=== PATIENT | female | born 1955 | race Caucasian/White ===

== ENCOUNTER → 2022-09-02 | Outpatient (CLI) | payer MEDICARE, SELFPAY ==
[2022-09-02 17:35] LABS: Absolute Lymphocyte Count 0.96 X10^3/uL (0.83-4.51); Absolute Neutrophil Count 8.8 X10^3/uL (2.0-7.7); Basophil# 0.01 X10^3/uL; Basophil% 0.1 % (0-1); Hematocrit 41.8 % (37-47); Hemoglobin 13.5 g/dL (12.0-15.0); Lymphocyte # 0.96 X10^3/ul (0.83-4.51); Lymphocyte % 9.3 % (19-41); Mean Corp Hgb Conc 32.3 g/dL (32-36); Mean Corpuscular Hgb 30.9 pg (27.0-32.0); Mean Corpuscular Volume 95.7 fL (81-99); Mean Platelet Vol. 10.1 fl (6.2-12.0); Monocyte# 0.49 X10^3/uL; Monocyte% 4.7 % (0-10); NRBC Flagged by Analyzer 0 % (0-5); Neutrophil # 8.83 X10^3/uL (2.7-7.7); Neutrophil % 85.5 % (47-70); Platelet Count 297 K/mm3 (150-450); RBC Distribution Width CV 13.4 % (11.6-14.6); RBC Distribution Width SD 47.9 fl (35.1-43.9); Red Blood Count 4.37 M/mm3 (4.2-5.4); White Blood Count 10.3 K/mm3 (4.4-11.0)
[2022-09-02 18:13] LABS: Erythrocyte Sedimentation Rate 12 mm/hr (0-30)
[2022-09-02 18:59] LABS: CRP < 2.90 mg/L (0.0-3.0); Rheumatoid Factor < 10.0 IU/mL (<15)
[2022-09-06 18:36] LABS: ANTINUCLEAR ANTIBODIES DIRECT Negative (Negative)
== END | disposition home or self-care (01) ==
PROVIDERS: PCP Family Medicine; Referring Provider Student in an Organized Health Care Education/Training Program; Visit Provider Student in an Organized Health Care Education/Training Program
DX: M79.642 Pain in left hand (principal)
CPT/HCPCS: 36415; 84550; 85025; 85652; 86038; 86140; 86431

== ENCOUNTER → 2023-03-01 | Outpatient (CLI) | payer MEDICARE, SELFPAY ==
[2023-03-01 18:22] LABS: Hematocrit 42.9 % (37-47); Hemoglobin 14.3 g/dL (12.0-15.0); Mean Corp Hgb Conc 33.3 g/dL (32-36); Mean Corpuscular Hgb 32.2 pg (27.0-32.0); Mean Corpuscular Volume 96.6 fL (81-99); Mean Platelet Vol. 9.6 fl (6.2-12.0); Platelet Count 312 K/mm3 (150-450); RBC Distribution Width CV 13.2 % (11.6-14.6); RBC Distribution Width SD 46.9 fl (35.1-43.9); Red Blood Count 4.44 M/mm3 (4.2-5.4); White Blood Count 8.8 K/mm3 (4.4-11.0)
[2023-03-01 18:45] LABS: Anion Gap 8 (5-15); BUN 5 mg/dL (7-18); BUN/Creat Ratio 7.4 RATIO (10-20); Calcium,Total 9.3 mg/dL (8.5-10.1); Chloride 98 mmol/L (98-107); Creatinine, Serum 0.67 mg/dL (0.55-1.02); EST Glomerular Filtration Rate 92 mL/min (>60); Est Glom Filt Rate - Afr Amer 112 mL/min (>60); Glucose 97 mg/dL (74-106); Potassium 3.3 mmol/L (3.5-5.1); Sodium Level 132 mmol/L (136-145)
== END | disposition home or self-care (01) ==
LOC: MTLAB 16:27
PROVIDERS: PCP Family Medicine; Referring Provider Urology; Visit Provider Urology
DX: R31.0 Gross hematuria (principal); N39.0 Urinary tract infection, site not specified; R10.9 Unspecified abdominal pain
CPT/HCPCS: 36415; 80048; 85027

== ENCOUNTER → 2023-03-02 | Outpatient (CLI) | payer MEDICARE, SELFPAY ==
--- NOTE | 2023-03-02 12:45 | CYSPIN_PTH ---
PATIENT: SAVI CASTRO LOC: [facility] U#:[id number] AGE/SX: 67/F ROOM: RE03/02/[address]: Dr. Jazlyn Cai MD : 1955 BED: DIS: 03/02/2023 SPEC #: [id number] RECD: 03/03/23 09:39 STATUS: FRANKO REJuventino #: [id number] CELINA: 03/02/23 12:[address]: Jazlyn Cai DEPT: CYTOLOGY RECD BY: Bridget Wynn ENTERED: 03/03/23 09:39 SP TYPE: CYSPIN FL OTHR DR: Dr. Peace Eckert, DO Tissues: Urine Procedures: Pap Stain (control) Special Stain Group II Cytospin Fluid HEADER OPERATION: Not noted PRE-OP DIAGNOSIS: Gross hematuria TISSUE SUBMITTED: Urine for cytology DIAGNOSIS CYTOLOGY Urine for cytology (cytospin): Negative for high-grade urothelial carcinoma (NHGUC), Sheree System Category II. Abundant bacteria present. See comment. AM:juan 03/03/2023 COMMENT The Sheree System for urine cytology diagnostic categorization was used in the evaluation of this case. CYTOLOGY STUDY Slides are reviewed. CYTOLOGY GROSS Received is 40 ml of yellow cloudy fluid labeled with the patient's name and and designated per the requisition as urine. Submitted for cytology preparation. / juan 03/03/2023 TC:5 CPT: 09995
[2023-03-02 12:47] LABS: Cytology, Body Fluid / CSF SEE PATHOLOGY REPORT
== END | disposition home or self-care (01) ==
LOC: LABSPEC 12:45
PROVIDERS: PCP Family Medicine; Visit Provider Urology
DX: R31.0 Gross hematuria (principal)
CPT/HCPCS: 88108; 88313

== ENCOUNTER → 2023-03-21 | Outpatient (CLI) | payer MEDICARE, SELFPAY ==
--- NOTE | 2023-03-21 07:31 | CT_ITS ---
STUDY: CT ABDOMEN AND PELVIS WITH AND WITHOUT CONTRAST REASON FOR EXAM: Female, 67 years old. GROSS HEMATURIA/FLANK PAIN RADIATION DOSAGE (If Supplied By Facility): CTDIvol = ( 11.39 ) mGy, DLP = ( 1085.26 ) mGycm TECHNIQUE: Transaxial images were obtained from the dome of the diaphragm to the symphysis pubis without oral contrast. IV 100mL Isovue-300 was administered. Sagittal and coronal images were reconstructed. Individualized dose optimization techniques were used for this CT. COMPARISON: None. FINDINGS: Minimal increased linear markings at the right lung base suggestive of scarring. Coronary artery calcification. Normal liver. Normal gallbladder and extrahepatic biliary system. Normal spleen. Normal pancreas. Normal bilateral adrenal glands. There is a 4.6 x 4.6 cm cyst in the upper midportion of the right kidney. There is a 4.5 cm x 4.6 cm cyst in the lower pole of the left kidney. Normal visualized stomach. Normal small intestine. Normal colon. The appendix is visualized and appears normal. There is diffuse atherosclerotic calcification of the abdominal aorta, without a demonstrated aneurysm. Normal inferior vena cava. Normal retroperitoneum. Normal urinary bladder. Normal abdominal wall. There are degenerative changes of the visualized lumbar spine. CT/CT Abd/Pelvis W/WO Contrast IMPRESSION: Bilateral renal cysts. Electronically Signed: Chuy Jean MD at 14:55 EDT ,
== END | disposition home or self-care (01) ==
LOC: CT 07:21
PROVIDERS: PCP Family Medicine; Referring Provider Urology; Visit Provider Urology
DX: N39.0 Urinary tract infection, site not specified (principal)
CPT/HCPCS: 74178; Q9967; A4216

== ENCOUNTER → 2023-03-31 | Outpatient (CLI) | payer MEDICARE, SELFPAY | END | disposition home or self-care (01) | LOC: SDC 04-05 08:07 → PAT 05-05 15:45 | PROVIDERS: PCP Family Medicine; Referring Provider Urology; Visit Provider Urology | DX: Z01.810 Encounter for preprocedural cardiovascular examination (principal) | CPT/HCPCS: 93005 ==

== ENCOUNTER → 2023-03-31 | Outpatient (CLI) | payer MEDICARE, SELFPAY ==
--- NOTE | 2023-03-31 11:19 | EKG12_ITS ---
Test Reason : PRE OP Blood Pressure : / mmHG Vent. Rate : 064 BPM Atrial Rate : 064 BPM P-R Int : 142 ms QRS Dur : 072 ms QT Int : 434 ms P-R-T Axes : 078 -59 261 degrees QTc Int : 447 ms Normal sinus rhythm Left axis deviation ST & T wave abnormality, consider anterolateral ischemia Abnormal ECG When compared with ECG of 31-MAR-2023 11:18, MANUAL COMPARISON REQUIRED, DATA IS UNCONFIRMED Confirmed by ESAU ALVARADO, CARLOS ([id number]), web editor ANAND HARRISON ([id number]) on 05/31/2023 1:42:03 PM Referred By: Jazlyn Cai Confirmed By:CARLOS CIFUENTES MD
== END | disposition home or self-care (01) ==
LOC: PSN 04-05 08:41
PROVIDERS: PCP Family Medicine; Referring Provider Urology; Visit Provider Urology
DX: Z00.00 Encounter for general adult medical examination without abnormal findings (principal)
CPT/HCPCS: 93005

== ENCOUNTER → 2023-04-06 | Outpatient (CLI) | payer MEDICARE, SELFPAY ==
--- NOTE | 2023-04-06 06:23 | ECHOD_ITS ---
Reason For Study: Pre-op clearance, Abn EKG Procedure This was a 2D Doppler, Color Flow transthoracic echocardiogram. Exam performed in department. Left Ventricle Apical false tendon noted. Left ventricular systolic function is normal. The estimated ejection fraction is 60 %. Normal diastology for age. No regional wall motion abnormalities noted. Right Ventricle Normal RV size. Normal systolic function. Atria The left and right atria are normal. Mitral Valve The mitral valve is structurally normal. No prolapse or stenosis seen. Mild (1+) mitral valve insufficiency. Tricuspid Valve Normal tricuspid valve. Mild (1+) tricuspid valve insufficiency. Right ventricular systolic pressure estimated to be 31 mmHg. Aortic Valve Trisinus/trileaflet aortic valve. Pulmonic Valve Normal pulmonic valve. Mild (1+) pulmonic valve insufficiency. Great Vessels Normal aortic root. Pericardium/Pleural No pericardial effusion. MMode/2D Measurements & Calculations LVIDd: 4.6 cm IVSd: 0.88 cm Ao root diam: 3.0 cm LVIDs: 3.3 cm LVPWd: 1.1 cm RVDd: 2.9 cm FS: 28.5 % LAV(MOD-bp): 42.2 ml LVAd ap4: 25.2 cm2 LVAd ap2: 25.5 cm2 LAV(MOD-bp) Indexed: 27.8 ml/m2 LVLd ap4: 7.1 cm LVLd ap2: 6.8 cm LAV(MOD-sp2): 40.8 ml EDV(MOD-sp4): 75.1 ml EDV(MOD-sp2): 81.2 ml LAV(MOD-sp4): 35.1 ml EDV(sp4-el): 75.5 ml EDV(sp2-el): 80.8 ml LVAs ap4: 14.0 cm2 LVAs ap2: 15.3 cm2 LVLs ap4: 5.7 cm LVLs ap2: 5.8 cm ESV(MOD-sp4): 28.6 ml ESV(MOD-sp2): 33.6 ml ESV(sp4-el): 29.3 ml ESV(sp2-el): 34.1 ml EF(MOD-sp4): 61.8 % EF(MOD-sp2): 58.5 % EF(sp4-el): 61.2 % SV(MOD-sp4): 46.4 ml SV(MOD-sp2): 47.5 ml SV(sp4-el): 46.2 ml LA dimension(2D): 3.7 cm LA A4 area: 13.9 cm2 RA A4 area: 10.8 cm2 TAPSE: 1.9 cm Time Measurements MV dec time: 0.38 sec Doppler Measurements & Calculations MV E max adonis: 44.8 cm/sec Lat Peak E' Adonis: 5.2 cm/sec Med Peak E' Adonis: 5.9 cm/sec MV A max adonis: 68.5 cm/sec E/E' lat: 8.6 E/E' med: 7.7 MV E/A: 0.65 MV dec slope: 117.0 cm/sec2 Ao V2 max: 126.2 cm/sec LV V1 max: 97.6 cm/sec Ao max P.4 mmHg LV V1 max P.8 mmHg Ao V2 mean: 84.5 cm/sec LV V1 mean P.0 mmHg Ao mean P.3 mmHg LV V1 mean: 65.5 cm/sec Ao V2 VTI: 31.5 cm LV V1 VTI: 25.2 cm AV (velocity ratio): 0.80 PA V2 max: 85.6 cm/sec TR max adonis: 263.8 cm/sec TR max P.8 mmHg ECHO/Echo Complete Interpretation Summary The estimated ejection fraction is 60 %. Mild (1+) mitral valve insufficiency. Mild (1+) tricuspid valve insufficiency. Ordering Physician: Francy Gaston Referring Physician: Peace Eckert Performed By: Macy Rivera RDCS
--- NOTE | 2023-04-06 14:12 | STRESSREP_ITS ---
Stress Test Report Date: 04/06/2023 Procedure: Exercise tolerance test/imaging study Indications: Abnormal ECG Consent: Per the patient Procedure: The patient exercised on a Cayden protocol for 3-minute achieving a peak heart rate of 127 bpm (84% predicted maximal heart rate) with a peak blood pressure 220/88 mmHg and a peak MET capacity of 4.6 METs. The baseline ECG demonstrated normal sinus rhythm with nonspecific ST T changes. The peak exercise ECG demonstrated no diagnostic changes secondary to baseline abnormality. There were no cardiac dysrhythmias pretest, during exercise, or recovery. The functional capacity was considered suboptimal. There was no complaint of chest discomfort during exercise or recovery. The examination was discontinued secondary to shortness of breath and target heart rate being achieved. The patient was injected with 11.5 mCi of technetium 99m Cardiolite and subsequently rest SPECT Cardiolite nuclear imaging was obtained in the horizontal long, vertical long, and short axis views. Post-exercise, the patient was injected with 33.3 mCi of technetium 99m Cardiolite and subsequently stress SPECT Cardiolite nuclear imaging was obtained in the horizontal long, vertical long, and short axis views. A gated Cardiolite study at peak stress was obtained. Rest and stress SPECT Cardiolite nuclear imaging status post realignment, normalization, and attenuation correction, demonstrates the appearance of relative uniform tracer uptake and myocardial perfusion appearing within normal limits. There is end systolic thickening and brightening. The gated Cardiolite study demonstrates myocardial thickening and inward wall motion. The reported LVEF is 68%. Impression: 1. Technically adequate (percent predicted maximal heart rate greater than 85%) exercise tolerance test 2. Peak exercise ECG nondiagnostic secondary to baseline abnormality 3. There were no cardiac dysrhythmias pretest, during exercise, or recovery 4. Rest and stress SPECT Cardiolite nuclear imaging demonstrate relative uniform tracer uptake and myocardial perfusion appearing within normal limits. 5. The gated Cardiolite study reports an LVEF of 68%. This note was generated with [employer] software. It may contain incorrect words, spelling, and punctuation that were not noted in checking the note before signing.
== END | disposition home or self-care (01) ==
PROVIDERS: PCP Family Medicine; Referring Provider Physician Assistant Medical; Visit Provider Physician Assistant Medical
DX: Z01.818 Encounter for other preprocedural examination (principal); R07.9 Chest pain, unspecified; R94.31 Abnormal electrocardiogram [ECG] [EKG]
CPT/HCPCS: 78452; 93017; 93306; A9500; A4216

== ENCOUNTER 2023-04-07 11:15 | Day surgery (SDC) | payer MEDICARE, SELFPAY ==
[2023-04-07 11:36] VITALS: BP 136/73; PULSE 70; RESP 17; TEMP 36.6; O2SAT 97; BMI 18.5
[2023-04-07] MEDS: Lactated Ringers 1,000 ML 15 ML IV (11:47)
--- NOTE | 2023-04-07 12:57 | CYSPIN_PTH ---
PATIENT: SAVI CASTRO [place] [facility] [id number] AGE/SX: 68/F ROOM: RE04/07/[address]: Dr. Jazlyn Cai MD : 1955 BED: DIS: 04/07/2023 SPEC #: [id number] RECD: 04/08/23 08:04 STATUS: FRANKO REJuventino #: [id number] CELINA: 04/07/23 12:[address]: Jazlyn Cai DEPT: CYTOLOGY RECD BY: Bridget Wynn ENTERED: 04/08/23 08:05 SP TYPE: CYSPIN FL OTHR DR: Dr. Peace Eckert, DO Tissues: A - Urine B - Urine Procedures: Pap Stain (control) Special Stain Group II Cytospin Fluid HEADER OPERATION: Urine collected in OR PRE-OP DIAGNOSIS: Gross hematuria TISSUE SUBMITTED: A. Right ureter urine, B. Left ureter urine DIAGNOSIS CYTOLOGY A. Right ureter urine (cytospin): Negative for high grade urothelial carcinoma (NHGUC). Sheree system category 2. B. Left ureter urine cytospin): Negative for high grade urothelial carcinoma (NHGUC). Sheree system category 2. SJ: 04/08/2023 COMMENT The Sheree System for urine cytology diagnostic categorization was used in the evaluation of this case. Correlation with clinical findings and appropriate follow up are necessary. CYTOLOGY STUDY Slides are reviewed. CYTOLOGY GROSS A. Received is 5 ml of clear colorless fluid labeled with the patient's name and and designated per the requisition as right ureter. Submitted for cytology preparation. B. Received is 10 ml of clear colorless fluid labeled with the patient's name and and designated per the requisition as left ureter. Submitted for cytology preparation. /DOUGLAS:donna 04/08/23 TC: 5 CPT: 03390 x2
[2023-04-07 13:20] VITALS: BP 136/73; BP 143/71; PULSE 66; RESP 16; TEMP 37.1; O2SAT 97
[2023-04-07 13:27] LABS: Cytology, Body Fluid / CSF SEE PATHOLOGY REPORT
[2023-04-07 13:27] LABS: Cytology, Body Fluid / CSF SEE PATHOLOGY REPORT
--- NOTE | 2023-04-07 13:43 | DCINST_ITS ---
Discharge Instructions Diet Discharge Diet: No restrictions Activity Discharge Activity: Return to Normal Activity Dressing / Incision Call your doctor if you observe: Fever of 101 or Higher, Inability to urinate and Inability to have a bowel movement Follow Up Care Please Follow Up With: Jazlyn Cai MD When: The office will call the patient to make arrangements Test Results: Test results from this visit will be discussed in further detail at your follow- up appointment, if applicable. Discharge Plan Admission Attending Provider: Jazlyn Cai Primary Care Provider: Peace Eckert Discharge Orders/Prescriptions Prescriptions: New oxycodone-acetaminophen [Percocet] 5-325 mg tablet 1 tab PO Q8H PRN (Reason: pain) 3 Days Qty: 10 0RF cephalexin [cephalexin] 500 mg capsule 500 mg PO Q12 3 Days Qty: 6 0RF phenazopyridine [Pyridium] 200 mg tablet 200 mg PO TID PRN PRN (Reason: Bladder Spasms) 7 Days Qty: 30 0RF Continued buspirone 30 mg tablet 30 mg PO BID Patient Comments: take 1 tablet by mouth twice a day escitalopram oxalate 20 mg tablet 20 mg PO DAILY Patient Comments: take 1 tablet by mouth once daily Referrals / Follow Up: Peace Eckert DO [Primary Care Provider] - Disposition Disposition (needs filled in before D/C Order can be placed): Home, Self Care
[2023-04-07 13:44] VITALS: BP 131/95; BP 136/73; PULSE 67; RESP 16; TEMP 37.2; O2SAT 99
--- NOTE | 2023-04-07 13:46 | PCM.OPRPT ---
Report of Operation Date of Procedure: 04/07/23 Pre-Operative Diagnosis: Gross hematuria Post-Operative Diagnosis: Same Surgery/Procedure Performed:: Cystoscopy, bilateral selective cytologies, right ureteroscopy, left ureteral stent insertion Surgeon: Jazlyn Cai Type of Anesthesia: General Specimen's removed: Bilateral flushings from the renal pelvis for selective cytology Description of Procedure: The patient is a 68-year-old female with gross hematuria now presents for further evaluation given that her office cystoscopy and CT scan did not reveal the etiology. Informed consent was obtained. She was taken to the operating room and placed in a supine position on the operating room table. Anesthesia monitored the head, neck, airway, IV access and vital signs throughout the case. Once anesthesia was appropriate ministered, the patient was placed into dorsolithotomy position was prepped and draped in usual sterile fashion. The cystoscope was inserted through the urethra and under direct visualization into the urinary bladder. The bladder mucosa did not reveal of any evidence of mass, lesion or other abnormality. It did appear to be injected. At this time a Pollick catheter was inserted through the left ureteral orifice and gently advanced to 20 cm. Normal saline was used to irrigate the renal pelvis gently and fluid obtained through the Pollick catheter was sent for cytologic evaluation. This process was repeated on the patient's right side with a brand-new Pollick catheter and syringe. At this time a 0.035 Glidewire was passed through the right ureteral orifice into the renal pelvis. The flexible ureteroscope easily advanced over the wire into the renal pelvis. Every calyx was directly visualized as was the entire length of the right ureter and no abnormal findings are identified. This process was repeated on the patient's left side, however after multiple tries, I was only able to access the distal aspect of the left ureter and hardly any of the ureter was evaluated directly. The decision was made to place a ureteral stent and come back for further evaluation. A 6 American 24 cm JJ stent was placed over the Glidewire with good positioning in the renal pelvis as well as the urinary bladder. The patient's bladder was emptied and the cystoscope was removed. She was awakened and taken to the recovery room in good condition. There were no complications during this procedure. Grafts/Implants Used: 6 American by 24 cm JJ stent Complications None Admit VTE Documentation VTE Present on Admission: Yes VTE Mechan Device Prophylaxis: SCD's VTE Pharm Prophylaxis ordered?: No Reason prophylaxis not ordered:: Treatment Not Indicated
[2023-04-07 14:14] VITALS: BP 136/73
== END 2023-04-07 14:17 | disposition home or self-care (01) ==
LOC: SDC 11:17 → AC 11:19
PROVIDERS: PCP Family Medicine; Referring Provider Urology; Visit Provider Urology
PROC: (CPT 50575; principal; 2023-04-07 12:40)
DX: R31.0 Gross hematuria (principal); I10 Essential (primary) hypertension; Z87.442 Personal history of urinary calculi; F17.200 Nicotine dependence, unspecified, uncomplicated; Z90.710 Acquired absence of both cervix and uterus; N39.3 Stress incontinence (female) (male); N39.0 Urinary tract infection, site not specified
CPT/HCPCS: 52332; 00910; 76000; 88108; 88313; J7120; C2617; J2405

== ENCOUNTER 2023-04-28 08:30 | Day surgery (SDC) | payer MEDICARE, SELFPAY ==
[2023-04-28] MEDS: Lactated Ringers 1,000 ML 15 ML IV (09:01)
[2023-04-28 09:03] VITALS: BP 137/78; PULSE 68; RESP 18; TEMP 36.2; O2SAT 18; BMI 18.8
--- NOTE | 2023-04-28 09:27 | DCINST_ITS ---
Discharge Instructions Diet Discharge Diet: No restrictions Activity Discharge Activity: Return to Normal Activity Dressing / Incision Call your doctor if you observe: Fever of 101 or Higher, Inability to urinate and Inability to have a bowel movement Follow Up Care Please Follow Up With: Jazlyn Cai MD When: The office will call to make follow-up arrangements. Test Results: Test results from this visit will be discussed in further detail at your follow- up appointment, if applicable. Discharge Plan Admission Attending Provider: Jazlyn Cai Primary Care Provider: Peace Eckert Discharge Orders/Prescriptions Prescriptions: Continued buspirone 30 mg tablet 30 mg PO BID Patient Comments: take 1 tablet by mouth twice a day escitalopram oxalate 20 mg tablet 20 mg PO DAILY Patient Comments: take 1 tablet by mouth once daily oxycodone-acetaminophen [Percocet] 5-325 mg tablet 1 tab PO Q8H PRN (Reason: pain) 3 Days Qty: 10 0RF cephalexin 500 mg capsule 500 mg PO Q12 3 Days Qty: 6 0RF phenazopyridine [Pyridium] 200 mg tablet 200 mg PO TID PRN PRN (Reason: Bladder Spasms) 7 Days Qty: 30 0RF Referrals / Follow Up: Peace Eckert DO [Primary Care Provider] - Disposition Disposition (needs filled in before D/C Order can be placed): Home, Self Care
--- NOTE | 2023-04-28 09:28 | OP.PCM_ITS ---
Report of Operation Date of Procedure: 04/28/23 Pre-Operative Diagnosis: Gross hematuria Post-Operative Diagnosis: Same, left pelvic ureteral narrowing Surgery/Procedure Performed:: Cystoscopy, left ureteral stent removal, left diagnostic ureteroscopy, left retrograde pyelogram Surgeon: Jazlyn Cai Type of Anesthesia: General Description of Procedure: The patient is a 68-year-old female being evaluated for gross hematuria. 2 weeks ago, an attempt was made at bilateral ureteroscopy and I was unable to advance the ureteroscope into the left ureter without difficulty. A left ureteral stent was left in place and she now presents for repeat attempt at ureteroscopic evaluation for this blood. Informed consent was obtained. The patient was taken to the operating room and placed on the operating room table. Anesthesia monitored the head, neck, airway, IV access and vital signs throughout the case. Once anesthesia was appropriately administered, the patient was placed into dorsolithotomy position and was prepped and draped in usual sterile fashion. The cystoscope was inserted through the urethra under direct visualization. The ureteral stent was identified and grasped and pulled to the urethral meatus where it was intubated with a 0.035 Glidewire which advanced without difficulty into the renal pelvis as seen on fluoroscopic visualization. The stent was then removed leaving the wire in place. At this time the flexible ureteroscope was loaded over the wire and advanced into the bladder, then the left ureter all the way to the renal pelvis. Direct visualization of the entire renal pelvis and the calyces was performed without any abnormal findings. The entire length of the ureter was directly visualized as the ureteroscope was pulled towards the bladder. In the pelvis, the ureteral mucosa became redundant in appearance. There was no friability or bleeding suggesting obvious malignancy, but the tissue was not normal in appearance. It was smooth and not papillary. This is also the same location of narrowing on ureteroscopy causing the stent insertion. We did not have access to equipment for ureteral biopsy at this time, and I decided to further investigate with a retrograde pyelogram. Using the cystoscope and an 8 Martiniquais cone-tip catheter, contrast was injected in retrograde fashion under fluoroscopic visualization. At this location, the ureter clamped back down suggesting either stricture or significant tissue growth causing obstruction of contrast from the distal location. At this time the patient's bladder was then emptied. She was awak ened and taken to the recovery room in good condition. There were no complications during this procedure. Grafts/Implants Used: None Complications None Admit VTE Documentation VTE Present on Admission: Yes VTE Mechan Device Prophylaxis: SCD's VTE Pharm Prophylaxis ordered?: No Reason prophylaxis not ordered:: Treatment Not Indicated
[2023-04-28] MEDS: Cefazolin 2 GM in 0.9% Normal Saline (100mL Bag) 100 ML IV (09:35)
[2023-04-28 10:19] VITALS: BP 118/57; BP 137/78; PULSE 72; RESP 16; TEMP 37.4; O2SAT 97
[2023-04-28 10:36] VITALS: BP 133/70; BP 137/78; PULSE 67; RESP 16; TEMP 37.4; O2SAT 96
[2023-04-28 11:12] VITALS: BP 137/78
== END 2023-04-28 11:20 | disposition home or self-care (01) ==
LOC: SDC 08:32 → AC 08:33
PROVIDERS: PCP Family Medicine; Referring Provider Urology; Visit Provider Urology
PROC: (CPT 52353; principal; 2023-04-28 09:05)
DX: R31.0 Gross hematuria (principal); N13.5 Crossing vessel and stricture of ureter without hydronephrosis; Z96.0 Presence of urogenital implants; F41.9 Anxiety disorder, unspecified; F32.A Depression, unspecified; Z87.19 Personal history of other diseases of the digestive system; Z87.442 Personal history of urinary calculi; Z87.448 Personal history of other diseases of urinary system; Z92.241 Personal history of systemic steroid therapy; F17.200 Nicotine dependence, unspecified, uncomplicated; I10 Essential (primary) hypertension; Z90.710 Acquired absence of both cervix and uterus; N39.3 Stress incontinence (female) (male); N39.0 Urinary tract infection, site not specified
CPT/HCPCS: 52351; 00910; 76000; J7120; J2405

== ENCOUNTER → 2024-03-02 | Outpatient (CLI) | payer MEDICARE, SELFPAY ==
--- NOTE | 2024-03-02 12:55 | US_ITS ---
STUDY: RENAL ULTRASOUND - COMPLETE REASON FOR EXAM: Female, 68 years old. UTI TECHNIQUE: Ultrasound evaluation of the kidneys was performed with real-time and static vegas-scale imaging. COMPARISON: Comparison is made with prior CT scan the abdomen and pelvis dated March 21, 2023. FINDINGS: RIGHT KIDNEY: Normal location of the right kidney, which is normal in size. The right kidney measures 12 cm x 5.4 cm x 6.7 cm. There is a normal cortex of the right kidney. The renal cortex measures 1.5 cm. There is a 5.5 cm x 4.9 cm x 4.1 cm cyst in the upper pole. There are no right renal calculi. There is no right hydronephrosis. DISTAL RIGHT URETER: There is non-visualization of the distal right ureter. There is no demonstrated right ureterovesical junction calculus. There is a visualized right ureteral jet. LEFT KIDNEY: Normal location of the left kidney, which is normal in size. The left kidney measures 12 cm x 5.1 cm x 5.7 cm. There is a normal cortex of the left kidney. The renal cortex measures 1.4 cm. There is a 6 cm x 5.2 cm x 4.7 cm cyst in the lower pole. There are no left renal calculi. There is no left hydronephrosis. DISTAL LEFT URETER: There is non-visualization of the distal left ureter. There is no demonstrated left ureterovesical junction calculus. There is a visualized left ureteral jet. BLADDER: The distended urinary bladder has a volume of 104 ml. The bladder wall is thickened measuring 6.5 mm. There is no demonstrated mass within the urinary bladder. There are no demonstrated bladder calculi. US/Kidney and Bladder IMPRESSION: Bilateral renal cysts. Thickening of the urinary bladder wall measuring 6.5 mm. Electronically Signed: Chuy Jean MD at 14:35 EDT ,
== END | disposition home or self-care (01) ==
PROVIDERS: PCP Family Medicine; Referring Provider Urology; Visit Provider Urology
DX: Z87.440 Personal history of urinary (tract) infections (principal)
CPT/HCPCS: 76770

== ENCOUNTER → 2024-03-27 | Outpatient (CLI) | payer MEDICARE, SELFPAY ==
--- NOTE | 2024-03-27 16:08 | BD_ITS ---
STUDY: DUAL ENERGY X-RAY ABSORPTIOMETRY / DXA REASON FOR EXAM: Female, 69 years old. M85.9 TECHNIQUE: Bone Mineral Density (BMD) measurements of lumbar spine and bilateral hips were obtained. COMPARISON: None. FINDINGS: Lumbar Spine (L1-L4): g/cm2 (1.010) / T-score (-0.2) / Z-score (1.8) Findings are suggestive of normal bone density with a low fracture risk. Left Femur Total: g/cm2 (0.908) / T-score (-0.3) / Z-score (1.2) Left Femoral Neck: g/cm2 (0.886) / T-score (0.3) / Z-score (2.1) Right Femur Total: g/cm2 (0.862) / T-score (-0.7) / Z-score (0.8) Right Femoral Neck: g/cm2 (0.838) / T-score (-0.1) / Z-score (1.7) BD/Dexa Bone Density Study IMPRESSION: The patient is considered normal as outlined below according to World Star Organization (WHO) criteria with a low fracture risk. Reference Information: The T-score is the number of standard deviations above or below the standard which is normal for young adults at their peak bone mineral density. The World Health Organization (WHO) interprets the T-scores as follows: Above -1 Normal bone density Between -1 and -2.5 Osteopenia Equal to / or below -2.5 Osteoporosis As a practical clinical guideline, osteopenia may be graded as follows: Mild -1 through -1.5 Moderate -1.6 through -2.0 Severe -2.1 through -2.4 The Z-score is the number of standard deviations above or below age-matched controls. A Z-score of less than -1.5 would be considered abnormal. References: 1. NIH Osteoporosis and Related Bone Diseases www osteo.org 2. International Society for Clinical Densitometry www iscd.org 3. National Osteoporosis Foundation www nof.org Electronically Signed: Chuy Jean MD at 10:14 EDT ,
== END | disposition home or self-care (01) ==
LOC: OPBD 16:05
PROVIDERS: PCP Family Medicine; Referring Provider Student in an Organized Health Care Education/Training Program; Visit Provider Student in an Organized Health Care Education/Training Program
DX: M85.9 Disorder of bone density and structure, unspecified (principal); Z78.0 Asymptomatic menopausal state
CPT/HCPCS: 77080

== ENCOUNTER → 2024-05-01 | Outpatient (CLI) | payer MEDICARE, SELFPAY ==
[2024-05-01 17:57] LABS: Absolute Lymphocyte Count 2.62 X10^3/uL (0.83-4.51); Absolute Neutrophil Count 6.6 X10^3/uL (2.0-7.7); Basophil# 0.02 X10^3/uL; Basophil% 0.2 % (0-1); Eosinophil# 0.04 X10^3/uL; Eosinophils% 0.4 % (0-5); Hematocrit 37.3 % (37-47); Hemoglobin 11.8 g/dL (12.0-15.0); Lymphocyte # 2.62 X10^3/ul (0.83-4.51); Lymphocyte % 25.9 % (19-41); Mean Corp Hgb Conc 31.6 g/dL (32-36); Mean Corpuscular Hgb 31.1 pg (27.0-32.0); Mean Corpuscular Volume 98.2 fL (81-99); Mean Platelet Vol. 9.3 fl (6.2-12.0); Monocyte# 0.78 X10^3/uL; Monocyte% 7.7 % (0-10); NRBC Flagged by Analyzer 0 % (0-5); Neutrophil # 6.58 X10^3/uL (2.7-7.7); Platelet Count 319 K/mm3 (150-450); RBC Distribution Width SD 53.8 fl (35.1-43.9); White Blood Count 10.1 K/mm3 (4.4-11.0)
[2024-05-01 18:19] LABS: Vitamin D,25 Hydroxy 19.4 ng/mL
[2024-05-01 18:20] LABS: ALB/GLOB Ratio 1.2 RATIO (0.9-2.4); AST(SGOT) 12 U/L (15-37); Alanine Aminotransfer ALT/SGPT 16 U/L (13-56); Albumin, Serum 3.6 g/dL (3.2-5.0); Alkaline Phosphatase 68 U/L (45-117); Anion Gap 3 (5-15); BUN 15 mg/dL (7-18); BUN/Creat Ratio 16.3 RATIO (10-20); Calcium,Total 9.1 mg/dL (8.5-10.1); Chloride 101 mmol/L (98-107); Cholesterol 179 mg/dL (200); Creatinine, Serum 0.92 mg/dL (0.55-1.02); EST Glomerular Filtration Rate 64 mL/min (>60); Est Glom Filt Rate - Afr Amer 78 mL/min (>60); Globulin 3.1 g/dL (2.2-4.2); Glucose 89 mg/dL (74-106); High Density Lipoprotein 103 mg/dL; Protein, Total 6.7 g/dL (6.4-8.2); Sodium Level 136 mmol/L (136-145); Triglycerides 64 mg/dL; Very Low Density Lipoprotein 13 mg/dL (5-40)
== END | disposition home or self-care (01) ==
PROVIDERS: PCP Family Medicine; Referring Provider Family Medicine; Visit Provider Family Medicine
DX: N39.0 Urinary tract infection, site not specified (principal); R20.2 Paresthesia of skin; E55.9 Vitamin D deficiency, unspecified
CPT/HCPCS: 36415; 80053; 80061; 82306; 85025; 87077; 87086; 87088; 87186

== ENCOUNTER → 2024-12-11 | Outpatient (CLI) | payer MEDICARE, SELFPAY ==
--- NOTE | 2024-12-11 12:27 | BI_ITS ---
EXAM: SCRN MAMM (CAD)W/MARIA E BILAT 12/11/2024 CLINICAL HISTORY: F, Age 69 y/o , SCREENING TECHNIQUE: Bilateral screening digital breast tomosynthesis with 2D and 3D images. Computer aided detection. COMPARISON: Prior exam(s) dated 05/05/2023, 03/29/2022, 07/08/2020. FINDINGS: TISSUE DENSITY: The breast tissue is heterogenously dense, which may obscure small masses. The mammogram demonstrates that the patient has dense breasts. Supplemental screening with whole breast ultrasound or MRI may be considered for further evaluation. Bilateral Breast Mammographic Findings: No significant masses, calcifications or other abnormalities are identified. BI/SCRN MAMM (CAD)W/MARIA E BILAT IMPRESSION: Right Breast: BIRADS 1 NEGATIVE. Left Breast: BIRADS 1 NEGATIVE. OVERALL FINAL ASSESSMENT: BIRADS 1 NEGATIVE. RECOMMENDATION: Routine annual follow-up in 1 Year A letter with findings and recommendations will be mailed to the patient. Reading Location: [id number]
== END | disposition home or self-care (01) ==
LOC: OPBI 12:26
PROVIDERS: PCP Family Medicine; Referring Provider Family Medicine; Visit Provider Family Medicine
DX: Z12.31 Encounter for screening mammogram for malignant neoplasm of breast (principal)
CPT/HCPCS: 77063; 77067

== ENCOUNTER → 2025-04-09 | Outpatient (CLI) | payer MEDICARE, SELFPAY ==
[2025-04-09 15:18] LABS: Hematocrit 41.3 % (37-47); Hemoglobin 13.8 g/dL (12.0-15.0); Mean Corp Hgb Conc 33.4 g/dL (32-36); Mean Corpuscular Volume 96.0 fL (81-99); Mean Platelet Vol. 10.3 fl (6.2-12.0); Platelet Count 283 K/mm3 (150-450); RBC Distribution Width CV 13.7 % (11.6-14.6); RBC Distribution Width SD 48.9 fl (35.1-43.9); Red Blood Count 4.30 M/mm3 (4.2-5.4); White Blood Count 5.9 K/mm3 (4.4-11.0)
[2025-04-09 15:54] LABS: AST(SGOT) 22 U/L (<=31); Alanine Aminotransfer ALT/SGPT 13 U/L (<=34); Albumin, Serum 4.7 g/dL (3.4-4.8); Alkaline Phosphatase 79 U/L (35-104); Anion Gap 12 (5-15); BUN 6 mg/dL (4-19); BUN/Creat Ratio 9.0 RATIO (10-20); Calcium,Total 9.5 mg/dL (7.6-11.0); Carbon Dioxide 24.1 mmol/L (21.0-32.0); Chloride 99 mmol/L (98-108); Globulin 2.2 g/dL (2.2-4.2); Glucose 104 mg/dL (70-99); Potassium 4.1 mmol/L (3.3-5.1); Vitamin D,25 Hydroxy 28.3 ng/mL (30-100)
== END | disposition home or self-care (01) ==
LOC: MTLAB 12:51
PROVIDERS: PCP Family Medicine; Referring Provider Family Medicine; Visit Provider Family Medicine
DX: E55.9 Vitamin D deficiency, unspecified (principal); R03.0 Elevated blood-pressure reading, without diagnosis of hypertension; F32.A Depression, unspecified
CPT/HCPCS: 36415; 80053; 82306; 84443; 85027

== ENCOUNTER → 2025-04-24 | Outpatient (CLI) | payer MEDICARE, SELFPAY ==
--- NOTE | 2025-04-24 15:00 | NEURO ---
NCS and/or EMG Patient Report Ordering Doctor: Kirill Sahni DATE OF SERVICE: 04/24/25 Jenifer presents with chief complaint of numbness and tingling in both hands. Electrodiagnostic findings: Right median motor nerve demonstrates prolonged latency with normal amplitude and reduced conduction velocity. Left median motor nerve demonstrates prolonged distal latency with normal amplitude and normal conduction velocity. Ulnar motor response within normal limits bilaterally, including conduction across the elbow. Normal median and ulnar F?waves bilaterally. Prolonged median sensory latency at the wrist bilaterally. Normal ulnar and radial sensory responses. Needle EMG testing was performed in the upper limbs. All muscles tested showed no evidence of denervation with normal motor unit action potentials. Electrodiagnostic impression: This is an abnormal study. 1. Electrodiagnostic findings suggestive of bilateral median mononeuropathy. This is consistent with a mild left carpal tunnel syndrome and a mild to moderate right carpal tunnel syndrome. Multi Select Codes Neurology Neurology Interp Codes: 34286-51 Musc test done w/n test comp (interp) (2) and 78326-57 Nrv cndj test 9-10 studies (interp)
--- OUTSIDE RECORDS SUMMARY | 2025-04-24 21:19 | XMS RPT_ITS | CCD ---
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 Dennis Field Primary Care Provider Dr. Dennis Field Referring Provider [phone] Marilin REYEZ, [place] Francy Stephens Attending Provider Dr. Francisco Krause Attending Provider Dr. Francisco Krause Referring Provider Natividad Vance MD Primary Care Provider Magi Borden MD Primary Care Provider [phone] NATIVIDAD VANCE Primary Care Unavailable MAGI BORDEN Primary Care Unavailable MAGI BORDEN Primary Care Unavailable ALEN RODRIGUEZ Referring Unavailable GIBSON KELLY Attending Unavailable Magi Borden MD Primary Care Provider [phone] Magi Borden MD Attending Provider [phone] Magi Borden MD Referring Provider Magi Borden MD Primary Care Provider [phone] Ayala ALVARADO, Dr. Hobson Attending Provider Magi Borden MD Attending Provider [phone] Magi Borden MD Referring Provider Magi Borden Attending Unavailable Magi Borden Referring Unavailable Magi Borden Primary Care Unavailable Magi Borden Attending Unavailable Magi Borden Referring Unavailable Magi Borden Primary Care Unavailable Magi Borden Attending Unavailable Magi Borden Referring Unavailable Dennis Field Primary Care Unavailable Medications Current Medications Medication Drug Class(es) Dates Sig (Normalized) Sig (Original) acetaminophen 325 mg / oxyCODONE hydrochloride 5 mg oral tablet (6 sources) Opioid Agonist Start: 04-07-2023 take 1 tablet by mouth every eight hours as needed for pain Oxycodone-Acetami nophen (Percocet) 5-325 mg tablet Active 1 {tbl} PO Q8H as needed for pain 10 3 0 April 07, 2023 Gross hematuria Gross hematuria AZO Urinary Pain Relief Max Strength (1 source) Start: 01-11-2023 AZO Urinary Pain Relief Max Strength Oral, TIDPC, 0 Refill(s) Start Date: 01/11/23 Status: Ordered busPIRone hydrochloride 30 mg oral tablet (20 sources) Start: 03-30-2023 take 1 tablet by mouth twice daily Buspirone 30 mg tablet Active 30 mg PO TWICE A DAY March 30, 2023 12:00am Start: 05-27-2021 End: 05-05-2022 take 1 tablet by mouth twice daily busPIRone HCl 30 mg tablet Take 30 mg by mouth twice daily. 05/27/2021 Active Comment on above: Take 30 mg by mouth twice daily. cephalexin 500 mg oral capsule (10 sources) Cephalosporin Antibacterial Start: End: take 1 capsule by mouth three times daily cephALEXin (KEFLEX) 500 mg capsule Take 1 capsule by mouth three times a day for 7 days. 21 capsule 06/19/2024 06/26/2024 Active Start: 04-07-2023 take 1 capsule by mo ut every twelve hours Cephalexin 500 mg capsule Active 500 mg PO EVERY 12 HOURS 6 3 0 April 07, 2023 12:00am post-operative Start: 02-13-2022 End: 02-20-2022 take 1 capsule by mouth twice daily cephALEXin (KEFLEX) 500 mg capsule Take 1 capsule by mouth twice daily for 7 days. 14 capsule 0 02/13/2022 02/20/2022 Active Comment on above: Take 1 capsule by mo [facility] twice daily for 7 days. Cranberry preparation (2 sources) Non-Standardized Food Allergenic Extract, Non-Standardized Plant Allergenic Extract Start: 3 cranberry oral tablet 0 Refill(s) Start Date: 01/11/23 Status: Ordered escitalopram 20 mg oral tablet (20 sources) Serotonin Reuptake Inhibitor Start: 3 take 1 tablet by mouth once daily Escitalopram Oxalate 20 mg tablet Active 20 mg PO DAILY March 30, 2023 12:00am Start: 10-01-2022 escitalopram 2 0 mg oral tablet Dose : 20 mg = 1 tab(s), Oral, qDay, # 90 tab(s), 1 Refill(s), [id number], Anxiety Depression, 162.2, cm, 10/01/22 16:00:00 EST, Height, kg, 10/01/22 16:00:00 EST, Dosing Weight Start Date: 10/01/22 Status: Ordered Start: 11-06-2021 escitalopram 2 0 mg oral tablet Dose : 20 mg = 1 tab(s), Oral, qDay, Increased dose, # 90 tab(s), 1 Refill(s), [id number], Anxiety Depression, 159, cm, 11/06/21 15:44:00 EDT, Height, kg, 11/06/21 15:35:00 EDT, Dosing Weight Start Date: 11/06/21 Status: Ordered Start: 07-23-2021 [facility] escitalopram oxalate (LEXAPRO) 10 mg tablet Take 10 mg by mouth once daily. 07/23/2021 Active Comment on above: Take 10 mg by mouth once daily. Folic Acid (4 sources) Start: 2019 lidocaine 0.05 mg/mg medicated patch (6 sources) Antiarrhythmic, Amide Local Anesthetic Start: 2023 apply 1 dose transdermal route every twenty-four hours lidocaine (LIDODERM) 5 % Indications: Acute right-sided low back pain without sciatica Apply 1 Patch as directed every 24 hours. 7 Patch 04/25/2024 Active Multiple Vitamins oral tablet (2 sources) Start: 2013 take 1 tablet by mouth once daily Multiple Vitamins oral tablet Dose = 1 tab(s), Oral, Daily, # 30 tab(s), 0 Refill(s) Start Date: 12/03/13 Status: Ordered nitrofurantoin, macrocrystals 25 mg / nitrofurantoin, monohydrate 75 mg oral capsule (1 source) Nitrofuran Antibacterial Start: 2021 End: 2021 take 1 capsule by mouth twice daily nitrofurantoin monohydrate and macrocrystal (MACROBID) 100 mg capsule Take 1 capsule by mouth twice daily for 5 days. 10 capsule 0 05/25/2022 05/30/2022 Active Comment on above: Take 1 capsule by [facility] twice daily for 5 days. phenazopyridine hydrochloride 200 mg oral tablet (13 sources) Start: 2022 End: 2022 take 1 tablet by mouth three times daily as needed for muscle spasms Phenazopyridine (Pyridium) 200 mg tablet Active 200 mg PO 3 TIMES DAILY NEEDED as needed for Bladder Spasms 30 7 0 April 07, 2023 12:00am predniSONE 10 mg oral tablet (6 sources) Start: 2023 predniSONE (DELTASONE) 10 mg tablet Take 4 tablets by mouth as a single dose days 1-3, 2 tablets days 4-6, and 1 tablet days 7-9. 21 tablet 04/25/2024 Active sulfamethoxazole 800 mg / trimethoprim 160 mg oral tablet (1 source) Dihydrofolate Reductase Inhibitor Antibacterial, Sulfonamide Antimicrobial Start: 2022 End: 2022 take 1 tablet by mouth twice daily Bactrim DS 800 mg-160 mg oral tablet Dose = 1 tab(s), Oral, BID, X 7 day(s), # 14 tab(s), 0 Refill(s), [id number], 158, cm, 01/11/23 13:04:00 EDT, Height, 49.2 Start Date: 01/11/23 Stop Date: 01/18/23 Status: Ordered trimethoprim 100 mg oral tablet (6 sources) Dihydrofolate Reductase Inhibitor Antibacterial Start: 2023 take 1 tablet by mouth once daily at bedtime trimethoprim (PROLOPRIM) 100 mg tablet Take 100 mg by mouth daily at bedtime. 01/23/2024 Active Tumeric chewable (3 sources) Start: 2022 Tumeric chewable Tumeric chewable, 0 Refill(s), 52.5 Start Date: 10/01/22 Status: Ordered Vitamin B12 50 mcg oral tablet (4 sources) Start: 2019 Vitamin B12 50 mcg oral tablet Dose : 50 mcg = 1 tab(s), Oral, qDay, # 30 tab(s), 0 Refill(s) Start Date: 06/26/20 Status: Ordered Vitamin D3 (4 sources) Start: 2019 Vitamin D3 Dose : 400 unit(s) = 1 tab(s), Oral, Daily, 0 Refill(s) Start Date: 09/26/19 Status: Ordered Completed/Discontinued Medications Medication Drug Class(es) Dates Sig (Normalized) Sig (Original) fluticasone propionate 0.05 mg/actuat metered dose nasal spray (3 sources) Corticosteroid Start: 10-01-2022 End: 03-30-2023 take 1 dose nasal route twice daily fluticasone 50 mcg/inh NASAL spray Dose = 1 spray(s), Nostril, each, BID, # 3 EA, 1 Refill(s), Pharmacy: [id number], Seasonal allergies, 162.2, cm, 10/01/22 16:00:00 EST, Height, kg, 10/01/22 16:00:00 EST, Dosing Weight Start Date: 10/01/22 Stop Date: 03/30/23 Status: Ordered Problems Active Problems Problem Classification Problem Date Documented Date Episodic/Chronic Allergic reactions (4 sources) Facial eczema 11-06-2021 Episodic Anxiety disorders (4 sources) Anxiety 12-03-2013 Chronic Mak (4 sources) Burn 12-03-2013 Episodic Comment on above: right proximal forea rm Diverticulosis and diverticulitis (4 sources) Diverticulitis 12-03-2013 Chronic Genitourinary symptoms and ill-defined conditions (20 sources) Dysuria; Translations: [Painful micturition, unspecified] Onset: 01-11-2023 Episodic Mood disorders (4 sources) Depressive disorder; Translations: [Recurrent major depressive episodes, mild ] 12-03-2013 Chronic Nonspecific chest pain (12 sources) Chest pain; Translations: [Chest pain, unspecified] 04-05-2023 Episodic Nutritional deficiencies (1 source) Vitamin D deficiency, unspecified; Translations: [Vitamin D deficiency, unspecified] Onset: 04-16-2025 Chronic Osteoarthritis (4 sources) Arthritis 12-03-2013 Chronic Other circulatory disease (4 sources) Elevated blood pressure 06-26-2020 Episodic Other connective tissue disease (4 sources) Hand pain 12-03-2013 Episodic Other connective tissue disease (4 sources) Triggering of digit 11-06-2021 Episodic Other disorders of stomach and duodenum (4 sources) Indigestion 12-03-2013 Episodic Other lower respiratory disease (4 sources) Rib pain 04-28-2021 Episodic Other nervous system disorders (4 sources) Intermittent tremor 06-26-2020 Episodic Other nervous system disorders (4 sources) Numbness and tingling sensation of skin 12-03-2013 Episodic Comment on above: left hand Other upper respiratory disease (3 sources) Seasonal allergy 04-14-2022 Chronic 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) Cystocele 02-10-2023 Chronic Residual codes; unclassified (4 sources) Needs influenza immunization 06-26-2020 Episodic Residual codes; unclassified (4 sources) Requires vaccination 03-03-2022 Episodic Spondylosis; intervertebral disc disorders; other back problems (2 sources) Acute low back pain; Translations: [Acute right-sided low back pain without sciatica] 04-25-2024 Episodic Unclassified (4 sources) Cancer cervix screening status 03-03-2022 Unclassified (4 sources) Eye glasses, device (physical object) 12-03-2013 Unclassified (4 sources) H/O: high risk medication 03-22-2019 Unclassified (20 sources) Patient encounter status 06-26-2020 Unclassified (3 sources) Influenza vaccination status 10-01-2022 Past or Other Problems Problem Classification Problem Date Documented Da te Episodic/Chronic Other screening for suspected conditions (not mental disorders or infectious disease) (17 sources) Viral screening status; Translations: [Electrocardiogram abnormal] Onset: 12-19-2024 03-03-2022 Episodic Urinary tract infections (15 sources) Acute pyelonephritis; Translations: [Urinary tract infectious disease] Onset: 05-28-2024 12-03-2013 Episodic Results Test Name Value Interpretation Reference Range Facility Anion gap in Serum or Plasma Ordered By: Magi Borden on 04-09-2025 Anion gap [Moles/Vol] 12 mmol/L 5-15 [facility] BUN/creatinine ratioOrdered By: Magi Borden on 04-09-2025 Urea nitrogen/Creatinine [Mass ratio] 9.0 mg/mg Low 10-20 [facility] Bilirubin, totalOrdered By: Magi Borden on 04-09-2025 Bilirubin [Mass/Vol] 0.70 mg/dL 0.00-1.30 [facility] CBC-Complete Blood Cnt No Di ffon 04-09-2025 Erythrocyte distribution width (RBC) [Ratio] 13.7 % Normal 11.6-14.6 [facility] Comment on above: Order Comment: Order Date: 04/05/25 Order Info: [id number] - CBC Performed By: #### L [id number], [id number], L100.0500 #### [facility] [address] [place], [address] Hematocrit (Bld) [Volume fraction] 41.3 % Normal 37-47 [facility] Comment on above: Order Comment: Order Date: 04/05/25 Order Info: [id number] - CBC Performed By: #### L [id number], [id number], L100.0500 #### [facility] [address] [place], [address] Hemoglobin (Bld) [Mass/Vol] 13.8 g/dL Normal 12.0-15.0 [facility] Comment on above: Order Comment: Order Date: 04/05/25 Order Info: [id number] - CBC Performed By: #### L [id number], [id number], L100.0500 #### [facility] [address] [place], [address] MCH (RBC) [Entitic mass] 32.1 pg High 27.0-32.0 [facility] Comment on above: Order Comment: Order Date: 04/05/25 Order Info: [id number] - CBC Performed By: #### L [id number], [id number], L100.0500 #### [facility] [address] [place], [address] MCHC (RBC) [Mass/Vol] 33.4 g/dL Normal 32-36 [facility] Comment on above: Order Comment: Order Date: 04/05/25 Order Info: [id number] - CBC Performed By: #### L [id number], [id number], L100.0500 #### [facility] [address] [place], [address] MCV (RBC) [Entitic vol] 96.0 fL Normal 81-99 [facility] Comment on above: Order Comment: Order Date: 04/05/25 Order Info: [id number] - CBC Performed By: #### L [id number], [id number], L100.0500 #### [facility] [address] [place], [address] Platelet mean volume (Bld) [Entitic vol] 10.3 fL Normal 6.2-12.0 [facility] Comment on above: Order Comment: Order Date: 04/05/25 Order Info: [id number] - CBC Performed By: #### L [id number], [id number], L100.0500 #### [facility] [address] [place], [address] Platelets (Bld) [#/Vol] 283 10*3/uL Normal 150-450 [facility] Comment on above: Order Comment: Order Date: 04/05/25 Order Info: [id number] - CBC Performed By: #### L [id number], [id number], L100.0500 #### [facility] [address] [place], [address] RBC (Bld) [#/Vol] 4.30 10*6/uL Normal 4.2-5.4 [facility] Comment on above: Order Comment: Order Date: 04/05/25 Order Info: [id number] - CBC Performed By: #### L [id number], [id number], L100.0500 #### [facility] [address] [place], [address] RDW SD 48.9 fl High 35.1-43.9 [facility] Comment on above: Order Comment: Order Date: 04/05/25 Order Info: [id number] - CBC Performed By: #### L [id number], [id number], L100.0500 #### [facility] [address] [place], [address] WBC (Bld) [#/Vol] 5.9 10*3/uL Normal 4.4-11.0 [facility] Comment on above: Order Comment: Order Date: 04/05/25 Order Info: [id number] - CBC Performed By: #### L [id number], [id number], L100.0500 #### [facility] [address] [place], [address] Carbon dioxide, total [Moles /volume] in Central venous bloodOrdered By: Magi Borden on 04-09-2025 CO2 [Moles/Vol] 24.1 mmol/L 21.0-32.0 [facility] Chloride assayOrdered By: Shan Borden on 04-09-2025 Chloride [Moles/Vol] 99 mmol/L 98-108 [facility] Comprehensive Metabolic Prof ilon 04-09-2025 Albumin [Mass/Vol] 4.7 g/dL Normal 3.4-4.8 [facility] Comment on above: Order Comment: Order Date: 04/05/25 Order Info: [id number] - CMP Order Info: [id number] - TSH Performed By: #### L [id number], [id number], L100.0500 #### [facility] [address] [place], [address] Albumin/Globulin [Mass ratio] 2.1 {ratio} Normal 0.9-2.4 [facility] Comment on above: Order Comment: Order Date: 04/05/25 Order Info: [id number] - CMP Order Info: [id number] - TSH Performed By: #### L [id number], [id number], L100.0500 #### [facility] [address] [place], [address] ALK PHOS 79 U/L Normal 35-104 [facility] Comment on above: Order Comment: Order Date: 04/05/25 Order Info: [id number] - CMP Order Info: [id number] - TSH Performed By: #### L [id number], [id number], L100.0500 #### [facility] [address] [place], [address] ALT [Catalytic activity/Vol] 13 U/L Normal <=34 [facility] Comment on above: Order Comment: Order Date: 04/05/25 Order Info: [id number] - CMP Order Info: [id number] - TSH Performed By: #### L [id number], [id number], L100.0500 #### [facility] [address] [place], [address] AST [Catalytic activity/Vol] 22 U/L Normal <=31 [facility] Comment on above: Order Comment: Order Date: 04/05/25 Order Info: [id number] - CMP Order Info: [id number] - TSH Performed By: #### L [id number], [id number], L100.0500 #### [facility] [address] [place], [address] Bilirubin [Mass/Vol] 0.70 mg/dL Normal 0.00-1.30 [facility] Comment on above: Order Comment: Order Date: 04/05/25 Order Info: [id number] - CMP Order Info: [id number] - TSH Performed By: #### L [id number], [id number], L100.0500 #### [facility] [address] [place], [address] BUN/CRE 9.0 RATIO Low 10-20 [facility] Comment on above: Order Comment: Order Date: 04/05/25 Order Info: [id number] - CMP Order Info: [id number] - TSH Performed By: #### L [id number], [id number], L100.0500 #### [facility] [address] [place], [address] Calcium [Mass/Vol] 9.5 mg/dL Normal 7.6-11.0 [facility] Comment on above: Order Comment: Order Date: 04/05/25 Order Info: [id number] - CMP Order Info: 3 - TSH Performed By: #### L [id number], [id number], L100.0500 #### [facility] [address] [place], [address] Chloride [Moles/Vol] 99 mmol/L Normal 98-108 [facility] Comment on above: Order Comment: Order Date: 04/05/25 Order Info: [id number] - CMP Order Info: [id number] - TSH Performed By: #### L [id number], [id number], L100.0500 #### [facility] [address] [place], [address] CO2 [Moles/Vol] 24.1 mmol/L Normal 21.0-32.0 [facility] Comment on above: Order Comment: Order Date: 04/05/25 Order Info: [id number] - CMP Order Info: [id number] - TSH Performed By: #### L [id number], [id number], L100.0500 #### [facility] [address] [place], [address] Creatinine [Mass/Vol] 0.64 mg/dL Low 0.70-1.20 [facility] Comment on above: Order Comment: Order Date: 04/05/25 Order Info: [id number] - CMP Order Info: [id number] - TSH Performed By: #### L [id number], [id number], L100.0500 #### [facility] [address] [place], [address] GAP 12 Normal 5-15 [facility] Comment on above: Order Comment: Order Date: 04/05/25 Order Info: [id number] - CMP Order Info: 3 - TSH Performed By: #### L [id number], [id number], L100.0500 #### [facility] [address] [place], [address] GFR/1.73 sq M.predicted among non-blacks MDRD (S/P/Bld) [Vol rate/Area] 95 mL/min/{1.73_m2} Normal >60 [facility] Comment on above: Order Comment: Order Date: 04/05/25 Order Info: [id number] - CMP Order Info: [id number] - TSH Result Comment: mL/m in/1.73m2 CKD-EPI Creatinine Equation (2020) Performed By: #### L [id number], L500.4050, L100.0500 #### [facility] [address] [place], [address] Globulin (S) [Mass/Vol] 2.2 g/dL Normal 2.2-4.2 [facility] Comment on above: Order Comment: Order Date: 04/05/25 Order Info: [id number] - CMP Order Info: [id number] - TSH Performed By: #### L [id number], L500.4050, L100.0500 #### [facility] [address] [place], [address] Glucose [Mass/Vol] 104 mg/dL High 70-99 [facility] Comment on above: Order Comment: Order Date: 04/05/25 Order Info: [id number] - CMP Order Info: [id number] - TSH Performed By: #### L [id number], L500.4050, L100.0500 #### [facility] [address] [place], [address] Potassium [Moles/Vol] 4.1 mmol/L Normal 3.3-5.1 [facility] Comment on above: Order Comment: Order Date: 04/05/25 Order Info: [id number] - CMP Order Info: 3 - TSH Performed By: #### L [id number], L500.4050, L100.0500 #### [facility] [address] [place], [address] Sodium [Moles/Vol] 135 mmol/L Normal 133-145 [facility] Comment on above: Order Comment: Order Date: 04/05/25 Order Info: [id number] - CMP Order Info: 3 - TSH Performed By: #### L [id number], L500.4050, L100.0500 #### [facility] [address] [place], [address] T PROT 6.9 g/dL Normal 5.9-8.4 [facility] Comment on above: Order Comment: Order Date: 04/05/25 Order Info: [id number] - CMP Order Info: 3 - TSH Performed By: #### L [id number], L500.4050, L100.0500 #### [facility] [address] [place], [address] Urea nitrogen [Mass/Vol] 6 mg/dL Normal 4-19 [facility] Comment on above: Order Comment: Order Date: 04/05/25 Order Info: [id number] - CMP Order Info: 3 - TSH Performed By: #### L [id number], L500.4050, L100.0500 #### [facility] [address] [place], [address] Erythrocyte distribution wid th ratioOrdered By: Magi Borden on 04-09-2025 Erythrocyte distribution width (RBC) [Ratio] 13.7 % 11.6-14.6 [facility] Erythrocyte distribution wid th standard deviationOrdered By: Magi Borden on 04-09-2025 Erythrocyte distribution width (RBC) [Ratio] 48.9 fl High 35.1-43.9 [facility] Glomerular filtration rate ( GFR) estimation/1.73 sq m using serum, plasma, or whole bOrdered By: Magi Borden on 04-09-2025 GFR/1.73 sq M.predicted among non-blacks MDRD (S/P/Bld) [Vol rate/Area] 95 mL/min/{1.73_m2} >60 [facility] Comment on above: mL/min/1.73m2 CKD-EP I Creatinine Equation (2020) Hematocrit Auto (Bld) [Volum e fraction]Ordered By: Magi Borden on 04-09-2025 Hematocrit (Bld) [Volume fraction] 41.3 % 37-47 [facility] Hemoglobin measurementOrdere d By: Magi Borden on 04-09-2025 Hemoglobin (Bld) [Mass/Vol] 13.8 g/dL 12.0-15.0 [facility] - Chemistry and C hemistry - challengeOrdered By: Magi Borden on 04-09-2025 AST [Catalytic activity/Vol] 22 U/L <32 [facility] MCV (mean corpuscular volume ) determinationOrdered By: Magi Borden on 04-09-2025 MCV (RBC) [Entitic vol] 96.0 fL 81-[address] [facility] Mean corpuscular hemoglobin (MCH) determinationOrdered By: Magi Borden on 04-09-2025 MCH (RBC) [Entitic mass] 32.1 pg High 27.0-32.0 [facility] Mean corpuscular hemoglobin concentration (MCHC) determinationOrdered By: Magi Borden on 04-09-2025 MCHC (RBC) [Mass/Vol] 33.4 g/dL 32-36 [facility] Mean platelet volume determi nationOrdered By: Magi Borden on 04-09-2025 Platelet mean volume (Bld) [Entitic vol] 10.3 fL 6.2-12.0 [facility] Platelet countOrdered By: Shan Borden on 04-09-2025 Platelets (Bld) [#/Vol] 283 10*3/uL 150-450 [facility] Potassium measurement (mass/ volume)Ordered By: Magi Borden on 04-09-2025 Potassium (Unsp spec) [Mass/Vol] 4.1 mmol/L 3.3-5.1 [facility] RBC Auto (Bld) [#/Vol]Ordere d By: Magi Borden on 04-09-2025 RBC (Bld) [#/Vol] 4.30 10*6/uL 4.2-5.4 [facility] Serum creatinine measurement (mass/volume)Ordered By: Magi Borden on 04-09-2025 Creatinine [Mass/Vol] 0.64 mg/dL Low 0.70-1.20 [facility] Serum globulin measurementOr dered By: Magi Borden on 04-09-2025 Globulin (S) [Mass/Vol] 2.2 g/dL 2.2-4.[address] [facility] Serum glucose measurement (m ass/volume)Ordered By: Magi Borden on 04-09-2025 Glucose [Mass/Vol] 104 mg/dL High 70-99 [facility] Serum or plasma alanine louise otransferase (ALT) measurementOrdered By: Magi Borden on 04-09-2025 ALT [Catalytic activity/Vol] 13 U/L <35 [facility] Serum or plasma albumin mónica urement (mass/volume)Ordered By: Magi Borden on 04-09-2025 Albumin [Mass/Vol] 4.7 g/dL 3.4-4.8 [facility] Serum or plasma albumin/glob ulin mass ratioOrdered By: Magi Borden on 04-09-2025 Albumin/Globulin [Mass ratio] 2.1 {ratio} 0.9-2.4 [facility] Serum or plasma alkaline lindsey sphatase measurementOrdered By: Magi Borden on 04-09-2025 ALP [Catalytic activity/Vol] 79 U/L 35-104 [facility] Serum or plasma calcium mónica urement (mass/volume)Ordered By: Magi Borden on 04-09-2025 Calcium [Mass/Vol] 9.5 mg/dL 7.6-11.0 [facility] Serum or plasma urea nitroge n measurement (mass/volume)Ordered By: Magi Rodriguezke on 04-09-2025 Urea nitrogen [Mass/Vol] 6 mg/dL 4-19 [facility] Sodium levelOrdered By: Kathi Borden on 04-09-2025 Sodium [Moles/Vol] 135 mmol/L 133-145 [facility] TSH DL <= 0.005 mIU/L QnOrde red By: Magi Rodriguezke on 04-09-2025 TSH Qn 1.490 uIU/mL 0.300-4.200 [facility] Thyroid Stim Hormone (TSH)on 04-09-2025 TSH 1.490 uIU/mL Normal 0.300-4.200 [facility] Comment on above: Order Comment: Order Date: 04/05/25 Order Info: 0786-1 - CMP Order Info: 3016-3 - TSH Performed By: #### L 501.9520, L500.4050, L100.0500 #### [facility] [address] [place], [place], [address] Total proteinOrdered By: Roseanne Borden on 04-09-2025 Protein [Mass/Vol] 6.9 g/dL 5.9-8.4 [facility] Vitamin D,25 Hydroxyon 04-09 Vitamin D 25-OH 28.3 ng/mL Low 30-100 [facility] Comment on above: Order Comment: Order Date: 04/05/25 Order Info: [id number] - CMP Order Info: 3016-3 - TSH Result Comment: Lisa min D Status Deficiency: <20 ng/mL (50nmol/L) Insufficiency: 20-30 ng/mL (50-75 nmol/L) Sufficiency: 30-100 ng/mL (75-250 nmol/L) Toxicity: >100 ng/mL (>250 nmol/L) Performed By: #### L 506.1001 #### [facility] [address] [place], [place], [address] White blood cell (WBC) count Ordered By: Magi Borden on 04-09-2025 WBC (Bld) [#/Vol] 5.9 10*3/uL 4.4-11.0 [facility] Breast imaging reportOrdered By: Jany Kaplan on 12-12-2024 Study report [facility] Imaging Services [address] [place] [address] SCRN MAMM (CAD)W/MARIA E BILAT MR#: [id number] Acct: [id number] Name: JENIFER CASTRO Rep #: [id number] : 1955 F 69 From: Nancy Kaplan MD PCP: Dr. Magi Borden MD Status: REG CL I Study:SCRN MAMM (CAD)W/MARIA E BILAT Date of Exa m: 12/11/24 Exam# [id number] Ordering Dr: Roseanne Borden MD EXAM: SCRN MAMM (CAD)W/MARIA E BILAT 12/11/2024 CLINICAL HISTORY: F, Age 69 y/o , SCREENING TECHNIQUE: Bilateral screening digital breast tomosynthesis with 2D and 3D images. Computeraided detection. COMPARISON: Prior exam(s) dated 05/05/2023, 03/29/2022, 07/08/2020. FINDINGS: TISSUE DENSITY: The breast tissue is heterogenously dense, which may obscure small masses. The mammogram demonstrates that the patient has dense breasts. Supplemental screening with whole breast ultrasound or MRI may be considered for further evaluation. Bilateral Breast Mammographic Findings: No significant masses, calcifications or other abnormalities are identified. BI/SCRN MAMM (CAD)W/MARIA E BILAT IMPRESSION: Right Breast: BIRADS 1 NEGATIVE. Left Breast: BIRADS 1 NEGATIVE. OVERALL FINAL ASSESSMENT: BIRADS 1 NEGATIVE. RECOMMENDATION: Routine annual follow-up in 1 Year A letter with findings and recommendations will be mailed to the patient. Reading Location: [facility] CC: Dr. Magi Borden MD ~ Business Center Attendant: Signed [facility] SCRN MAMM (CAD)W/MARIA E BILATo n 12-11-2024 SCRN MAMM (CAD)W/MARIA E BILAT [facility] Imaging Services [address] [place] [address] SCRN MAMM (CAD)W/MARIA E BILAT MR#: [id number] Acct: [id number] Name: JENIFER CASTRO Rep #: [id number] : 1955 F 69 From: Jany Kaplan MD PCP: Dr. Magi Borden MD Status: [facility] CL Study: SCRN MAMM (CAD)W/MARIA E BILAT Date of Exam: 11/14 05/09 Exam# [id number] Ordering Dr: Magi Borden MD EXAM: SCRN MAMM (CAD)W/MARIA E BILAT 12/11/2024 CLINICAL HISTORY: F, Age 69 y/o , SCREENING TECHNIQUE: Bilateral screening digital breast tomosynthesis with 2D and 3D images. Computer aided detection. COMPARISON: Prior exam(s) dated 05/05/2023, 03/29/2022, 07/08/2020. FINDINGS: TISSUE DENSITY: The breast tissue is heterogenously dense, which may obscure small masses. The mammogram demonstrates that the patient has dense breasts. Supplemental screening with whole breast ultrasound or MRI may be considered for further evaluation. Bilateral Breast Mammographic Findings: No significant masses, calcifications or other abnormalities are identified. BI/SCRN MAMM (CAD)W/MARIA E BILAT IMPRESSION: Right Breast: BIRADS 1 NEGATIVE. Left Breast: BIRADS 1 NEGATIVE. OVERALL FINAL ASSESSMENT: BIRADS 1 NEGATIVE. RECOMMENDATION: Routine annual follow-up in 1 Year A letter with findings and recommendations will be mailed to the patient. Reading Location: [id number] CC: Dr. Magi Borden MD Business Center Attendant: Signed Normal [facility] Alysia 07-25-2024 [facility] Telephone (AdstrixLWS) ---- JENIFER CASTRO ([id number]) 1955 F Date Time Provider Department 07/25/24 GIBSON KELLY During your visit today, we recorded the following information about you: Lucy Hardy LPN 07/25/2024 9:43 AM Signed Received medical records from Dr. Cai via [employer]. Scanned to [employer]. Lucy Hardy LPN Allergies As of Date: 07/25/2024 (No Known Allergies) Date Reviewed: 07/23/2024 Reviewed by: Gibson Kelly APRN.CLUB STEWARD, [facility] - Fully Assessed Reason for Visit: Medical Records [Other] Prescriptions as of 07/25/2024 - trimethoprim (PROLOPRIM) 100 mg tablet Take 100 mg by mouth daily at bedtime. - phenazopyridine (PYRIDIUM) 200 mg tablet Take 200 mg by mouth three times a day as needed. - predniSONE (DELTASONE) 10 mg tablet Take 4 tablets by mouth as a single dose days 1-3, 2 tablets days 4-6, and 1 tablet days 7-9. - lidocaine (LIDODERM) 5 % Apply 1 Patch as directed every 24 hours. - escitalopram oxalate (LEXAPRO) 10 mg tablet Take 10 mg by mouth once daily. - busPIRone HCl 30 mg tablet Take 30 mg by mouth twice daily. Problem List As Of Date 07/25/2024 Noted Resolved Recurrent UTI (urinary tract infection) [N39.0] 07/23/2024 Encounter Status:[facility] (UROAlexWS[facility] ---- JENIFER CASTRO ([id number]) 1955 F Date Time Provider Department 07/24/24 GIBSON KELLY During your visit today, we recorded the following information about you: Lucy Hardy LPN 07/24/2024 4:34 PM Signed ----- Message from Gibson Kelly APRN.ALESSANDRO MANRIQUE sent at 07/24/2024 3:06 PM EST ----- Hi Team , Can you inform the patient - Your urine is negative for blood. The bacteria are likely bacteria from the skin that shed into your urine. Not significant at this time. Continue with our plan and follow up with me in 6 months. Sooner for any UTI symptoms. Gibson Kelly DNP, [place] Department of Urology [facility] Lucy Hardy LPN 07/24/2024 4:36 PM Signed Called patient. Verified name and date of . Patient informed- verbalizes understanding. Lucy Hardy LPN Allergies As of Date: 07/24/2024 (No Known Allergies) Date Reviewed: 07/23/2024 Reviewed by: Gibson Kelly APRN.ALESSANDRO MANRIQUE - Fully Assessed Reason for Visit: Results [95] Prescriptions as of 07/24/2024 - trimethoprim (PROLOPRIM) 100 mg tablet Take 100 mg by mouth daily at bedtime. - phenazopyridine (PYRIDIUM) 200 mg tablet Take 200 mg by mouth three times a day as needed. - predniSONE (DELTASONE) 10 mg tablet Take 4 tablets by mouth as a single dose days 1-3, 2 tablets days 4-6, and 1 tablet days 7-9. - lidocaine (LIDODERM) 5 % Apply 1 Patch as directed every 24 hours. - escitalopram oxalate (LEXAPRO) 10 mg tablet Take 10 mg by mouth once daily. - busPIRone HCl 30 mg tablet Take 30 mg by mouth twice daily. Problem List As Of Date 07/24/2024 Noted Resolved Recurrent UTI (urinary tract infection) [N39.0] 07/23/2024 Encounter Status:Closed by LUCY HARDY on 07/24/24 Normal [facility] CNOVon 07-23-2024 CNOV Office Visit (UROLWS) ---- JENIFER CASTRO ([id number]) 1955 F Date Time Provider Department 07/23/24 1:00 PM GIBSON KELLY During your visit today, we recorded the following information about you: Temperature Pulse Respiration Blood pressure 98.4 degrees 100/minute 14/minute 128/76 Weight Height 51.7 kg 1.626 m Gibson Kelly APRN.CLUB STEWARD, DNP 07/23/2024 1:46 PM Signed [facility] - [facility] Referring provider: Magi Borden MD New patient to Urology 07/23/[address] Alen Rodriguez [address] [facility] [address] for an opinion regarding urinary urgency and my final recommendations will be communicated back to the requesting physician by way of shared Medical record or letter via US mail. Chief Complaint Patient presents with: Consult Urinary Frequency Urinary Incontinence HPI Jenifer Castro is a 69 year old female who presents here today for a several day history of urinary symptoms. This is an established patient of Dr. Magi Borden MD. This is a new patient to me. Past med hx: Umesh, urinary urgency, smoker Seen at in [place] for UTI symptoms. Had dysuria and frequency. History of 2 UTIs recently. Was on Cipro and Bactrim. completed and was negative. No Followed by Dr. Jazlyn Cai at [facility] for Umesh. Wants a second opinion regarding her rUTIs. No records from her office or in [place]. Reports: Denies any current dysuria, burning, urgency, and frequency. No blood in the urine. No fever or chills. Denies suprapubic pain or flank pain. Past medical history, appointments, medications, allergies reviewed 07/23/2024 Previous Medical History PAST MEDICAL HISTORY Diagnosis Date Cystocele, unspecified Disorder of bone density and structure, unspecified Diverticulitis Facial eczema History of skin cancer Intermittent tremor Numbness and tingling sensation of skin Seasonal allergies Urinary frequency 06/19/2024 Previous Surgical History PAST SURGICAL HISTORY Procedure Laterality Date PAST SURGICAL HISTORY OF states she has had three surgeries but uncertain of what she had done. Family History FAMILY HISTORY Problem Relation Age of Onset Uterine Cancer Mother Diabetes Mother other (Heart condition) Mother Heart Attack Mother Lung Cancer Father No Known Problems Sister No Known Problems Sister Skin Cancer Brother No Known Problems Maternal Grandmother No Known Problems Maternal Grandfather No Known Problems Paternal Grandmother No Known Problems Paternal Grandfather Patient Allergies ALLERGIES No Known Allergies Current Medications Current Outpatient Medications on File Prior to Visit Medication Sig trimethoprim (PROLOPRIM) 100 mg tablet Take 100 mg by mouth daily at bedtime. (Patient not taking: Reported on 06/19/2024) phenazopyridine (PYRIDIUM) 200 mg tablet Take 200 mg by mouth three times a day as needed. predniSONE (DELTASONE) 10 mg tablet Take 4 tablets by mouth as a single dose days 1-3, 2 tablets days 4-6, and 1 tablet days 7-9. (Patient not taking: Reported on 06/19/2024) lidocaine (LIDODERM) 5 % Apply 1 Patch as directed every 24 hours. escitalopram oxalate (LEXAPRO) 10 mg tablet Take 10 mg by mouth once daily. busPIRone HCl 30 mg tablet Take 30 mg by mouth twice daily. No current facility-administer ed medications on file prior to visit. Social History Social History Tobacco Use Smoking status: Every Day Types: Cigarettes Smokeless tobacco: Never Vaping Use Vaping status: Never Used Substance Use Topics Alcohol use: Yes Alcohol/week: 3.0 standard drinks of alcohol Types: 2 Glasses of wine, 1 Cans of beer per week Drug use: Never LABS: Latest Ref Rng 08/18/2021 02/13/2022 05/25/2022 06/19/2024 GLUCOSE UA (POCT) Negative mg/dL Negative 250 ! Negative Negative BILIRUBIN UA (POCT) Negative Negative Large ! Small ! Negative KETONE UA (POCT) Negative mg/dL Negative 40 ! 15 ! Negative SPECIFIC GRAVITY UA (POCT) 1.005 - 1.030 1.015 1.015 >=1.030 1.010 HEMOGLOBIN/BLOOD UA (POCT) Negative Large ! Large ! Large ! Small ! PH UA (POCT) 4.5 - 8.0 6.5 6.0 6.0 7.0 PROTEIN UA (POCT) Negative mg/dL Negative >=300 ! >=300 ! Trace ! UROBILINOGEN UA (POCT) Normal E.U./dL 0.2 >=8.0 ! 1.0 0.2 NITRITE UA (POCT) Negative Negative Positive ! Positive ! Positive ! LEUKOCYTES UA (POCT) Negative Small ! Large ! Small ! Moderate ! COLOR UA (POCT) Yellow [place] Dark yellow [place] CLARITY UA (POCT) Clear Cloudy Cloudy Cloudy Specimen Request Specimen received in preservative Culture <10,000 CFU/ml? No growth (<1,000 CFU/ml) 10,000 -<50,000 CFU/ml Escherichia coli ! No growth (<1,000 CFU/ml) IMAGING: Review of Symptoms GENERAL: No weight loss, malaise fatigue or fevers. GI: No nausea, vomiting, or diarrhea. No abdominal pain : + for burning, dysuria, urgency or frequency. No bloo (more content not included)... Normal [facility] UA DIP, URINE (POC)on 2023 BILIRUBIN UA (POCT) Negative Negative [facility] CLARITY UA (POCT) Clear [facility] COLOR UA (POCT) Yellow [facility] GLUCOSE UA (POCT) Negative Negative mg/dL [facility] Hemoglobin Ql (U) Trace-intact Abnormal Negative [facility] Interpretation and review of laboratory results Abnormal [facility] KETONE UA (POCT) Negative Negative mg/dL [facility] LEUKOCYTES UA (POCT) Negative Negative [facility] NITRITE UA (POCT) Negative Negative [facility] PH UA (POCT) 7.0 4.5 - 8.[address] [facility] Protein Ql (U) Negative Negative mg/dL [facility] SPECIFIC GRAVITY UA (POCT) 1.015 1.005 - 1.[address] [facility] UROBILINOGEN UA (POCT) 0.2 Nidia l E.U./dL [facility] Location:[facility], [address], [place], [address] [facility] Urinalysis complete panel (U )on 07-23-2024 BACTERIA UL 1422.9 uL High Negative [facility] Comment on above: Order Comment: Speci men Type: URINE SPECIMEN Ordering Facility: [facility] Address: [address] [place] [address] Performed By: #### 2 4356-8 #### [facility] CLIA [id number] [address] [place] [address] [place] Bilirubin Ql (U) Negative Normal Negative [facility] Comment on above: Order Comment: Speci men Type: URINE SPECIMEN Ordering Facility: [facility] Address: [address] [place] [address] Performed By: #### 2 4356-8 #### [facility] CLIA [id number] [address] [place] [address] [place] Clarity (Unsp spec) Clear Normal Clear [facility] Comment on above: Order Comment: Speci men Type: URINE SPECIMEN Ordering Facility: [facility] Address: [address] [place] [address] Performed By: #### 2 4356-8 #### [facility] CLIA [id number] [address] [place] [address] [place] Color (U) Yellow Normal Yellow [facility] Comment on above: Order Comment: Speci men Type: URINE SPECIMEN Ordering Facility: [facility] Address: [address] [place] [address] Performed By: #### 2 4356-8 #### [facility] CLIA [id number] [address] [place] [address] [place] Epithelial cells LM.HPF (Urine sed) [#/Area] Moderate Normal [facility] Comment on above: Order Comment: Speci men Type: URINE SPECIMEN Ordering Facility: [facility] Address: [address] [place] [address] Performed By: #### 2 4356-8 #### [facility] CLIA [id number] [address] [place] [address] [place] Glucose Test strip (U) [Mass/Vol] Negative Normal Negative [facility] Comment on above: Order Comment: Speci men Type: URINE SPECIMEN Ordering Facility: [facility] Address: [address] [place] [address] Performed By: #### 2 4356-8 #### [facility] CLIA [id number] [address] [place] [address] [place] Hemoglobin Ql (U) Negative Normal Negative [facility] Comment on above: Order Comment: Speci men Type: URINE SPECIMEN Ordering Facility: [facility] Address: [address] [place] [address] Performed By: #### 2 4356-8 #### [facility] CLIA [id number] [address] [place] [address] [place] Hyaline casts (Urine sed) [#/Area] 0 /[LPF] Normal 0 /LPF [facility] Comment on above: Order Comment: Speci men Type: URINE SPECIMEN Ordering Facility: [facility] Address: [address] [place] [address] Performed By: #### 2 4356-8 #### [facility] CLIA [id number] [address] [place] [address] [place] Ketones Ql (U) Trace Abnormal Negative [facility] Comment on above: Order Comment: Speci men Type: URINE SPECIMEN Ordering Facility: [facility] Address: [address] [place] [address] Performed By: #### 2 4356-8 #### [facility] CLIA [id number] [address] [place] [address] [place] Leukocyte esterase Test strip Ql (U) Negative Normal Negative [facility] Comment on above: Order Comment: Speci men Type: URINE SPECIMEN Ordering Facility: [facility] Address: [address] [place] [address] Performed By: #### 2 4356-8 #### [facility] CLIA [id number] [address] [place] [address] [place] Nitrite Ql (U) Negative Normal Negative [facility] Comment on above: Order Comment: Speci men Type: URINE SPECIMEN Ordering Facility: [facility] Address: [address] [place] [address] Performed By: #### 2 4356-8 #### [facility] CLIA [id number] [address] [place] [address] [place] pH (U) 7.0 [pH] Normal <8.5 [facility] Comment on above: Order Comment: Speci men Type: URINE SPECIMEN Ordering Facility: [facility] Address: [address] [place] [address] Performed By: #### 2 4356-8 #### [facility] CLIA [id number] [address] [place] [address] [place] Protein (U) [Mass/Vol] Negative Normal Negative [facility] Comment on above: Order Comment: Speci men Type: URINE SPECIMEN Ordering Facility: [facility] Address: [address] [place] [address] Performed By: #### 2 4356-8 #### [facility] CLIA [id number] [address] [place] [address] [place] RBC LM.HPF (Urine sed) [#/Area] 0-2 /HPF Normal 0-2 /HPF [facility] Comment on above: Order Comment: Speci men Type: URINE SPECIMEN Ordering Facility: [facility] Address: [address] [place] [address] Performed By: #### 2 4356-8 #### [facility] CLIA [id number] [address] [place] [address] [place] Specific gravity (U) [Rel density] 1.014 Normal 1.005-1.030 [facility] Comment on above: Order Comment: Speci men Type: URINE SPECIMEN Ordering Facility: [facility] Address: [address] [place] [address] Performed By: #### 2 4356-8 #### [facility] CLIA [id number] [address] [place] [address] [place] Urobilinogen Ql (U) 1.0 EU/dL Normal 0.2-1.0 EU/dL [facility] Comment on above: Order Comment: Speci men Type: URINE SPECIMEN Ordering Facility: [facility] Address: [address] [place] [address] Performed By: #### 2 4356-8 #### [facility] CLIA [id number] [address] [place] [address] [place] WBC LM.HPF (Urine sed) [#/Area] 0-5 /HPF Normal 0-5 /HPF [facility] Comment on above: Order Comment: Speci men Type: URINE SPECIMEN Ordering Facility: [facility] Address: [address] [place] [address] Performed By: #### 2 4356-8 #### [facility] CLIA [id number] [address] [place] [address] [place] Alsyia 06-21-2024 [facility] ---- JENIFER CASTRO ([id number]) 1955 F Date Time Provider Department 06/21/24 MICHELLE HANSEN RUST During your visit today, we recorded the following information about you: Michelle Hansen, JOSÉ MIGUEL 06/21/2024 9:02 AM Signed Please call and let patient know her urine culture was negative, she can discontinue antibiotics. Would recommend follow-up with PCP or urology. Louis Li MA 06/21/2024 2:41 PM Signed Spoke with patient, notified of results as listed below. Patient states she saw her primary care doctor today who did another urine culture and put her on Cefdinir in place of the Keflex that was prescribed at . Reinforced that she can stop taking the Keflex and to follow up with Urology due to continued and persistent symptoms, and she states she plans to do so. Louis Li MA Allergies As of Date: 06/21/2024 (No Known Allergies) Date Reviewed: 06/19/2024 Reviewed by: Alen Rodriguez APRN.CLUB STEWARD - Fully Assessed Reason for Visit: Results [95] Prescriptions as of 06/21/2024 - cephALEXin (KEFLEX) 500 mg capsule Take 1 capsule by mouth three times a day for 7 days. - trimethoprim (PROLOPRIM) 100 mg tablet Take 100 mg by mouth daily at bedtime. - phenazopyridine (PYRIDIUM) 200 mg tablet Take 200 mg by mouth three times a day as needed. - predniSONE (DELTASONE) 10 mg tablet Take 4 tablets by mouth as a single dose days 1-3, 2 tablets days 4-6, and 1 tablet days 7-9. - lidocaine (LIDODERM) 5 % Apply 1 Patch as directed every 24 hours. - escitalopram oxalate (LEXAPRO) 10 mg tablet Take 10 mg by mouth once daily. - busPIRone HCl 30 mg tablet Take 30 mg by mouth twice daily. Problem List As Of Date: 06/21/2024 (None) Encounter Status:Closed by LOUIS LI on 06/21/24 Normal [facility] Bacteria Ur Culton 4 Bacteria identified Cx Nom (U) CULTURE, URINE: No growth (<1,000 CFU/ml) Normal [facility] Comment on above: Performed By: #### 6 30-4 #### [facility] CLIA [id number] [address] [place] [address] [place] CNOVon 06-19-2024 CNOV Office Visit (UCWSTR) ---- GLORIAJENIFER ([id number]) 1955 F Date Time Provider Department 06/19/24 3:45 PM [facility]IG[facility]Z [facility] During your visit today, we recorded the following information about you: Temperature Pulse Respiration Blood pressure 98.7 degrees 78/minute 16/minute 112/66 Weight 52.3 kg Alen Rodriguez APRN.CLUB STEWARD 06/19/2024 4:19 PM Signed Subjective HPI Nontoxic-appearing female presents urgent care chief plaint possible UTI. Duration of symptoms 2 weeks. Associated symptoms dysuria frequency. History of 2 UTIs recently. Was on Cipro and Bactrim. Presents today for evaluation. States feeling poorly today. Did vomit a few days ago. No vomiting today. Does have some back pain. This is typical with UTIs. Denies any vomiting fevers abdominal pain currently. Past medical history prescription medications allergies reviewed. .Patient presents with: Urinary Frequency: x 2 weeks, treated 06/05 with bactrim, 05/01 with cipro No past medical history on file. No past surgical history on file. ALLERGIES Patient has no known allergies. MEDICATIONS lidocaine (LIDODERM) 5 % Apply 1 Patch as directed every 24 hours. escitalopram oxalate (LEXAPRO) 10 mg tablet Take 10 mg by mouth once daily. busPIRone HCl 30 mg tablet Take 30 mg by mouth twice daily. trimethoprim (PROLOPRIM) 100 mg tablet Take 100 mg by mouth daily at bedtime. (Patient not taking: Reported on 06/19/2024) phenazopyridine (PYRIDIUM) 200 mg tablet Take 200 mg by mouth three times a day as needed. predniSONE (DELTASONE) 10 mg tablet Take 4 tablets by mouth as a single dose days 1-3, 2 tablets days 4-6, and 1 tablet days 7-9. (Patient not taking: Reported on 06/19/2024) No family history on file. Social History Tobacco Use Smoking status: Every Day Smokeless tobacco: Never BP 112/66 Pulse 78 Temp 37.1 ?C (98.7 ?F) Resp 16 Wt 52.3 kg (115 lb 4.8 oz) SpO2 97% Review of Systems Constitutional: Negative for chills, fever and malaise/fatigue. Cardiovascular: Negative for chest pain. Gastrointestinal: Negative for abdominal pain, constipation, diarrhea, nausea and vomiting. Genitourinary: Positive for dysuria and frequency. Negative for flank pain, hematuria and urgency. Musculoskeletal: Negative for myalgias. Objective Physical Exam Vitals and nursing note reviewed. Constitutional: General: She is not in acute distress. Appearance: She is not diaphoretic. HENT: Head: Jaw: No trismus. Right Ear: Hearing normal. No decreased hearing noted. No drainage, swelling or tenderness. Tympanic membrane is not perforated, erythematous or bulging. Left Ear: Hearing normal. No decreased hearing noted. No drainage, swelling or tenderness. Tympanic membrane is not perforated, erythematous or bulging. Mouth/Throat: Pharynx: Uvula midline. No uvula swelling. Tonsils: No tonsillar abscesses. Cardiovascular: Rate and Rhythm: Normal rate and regular rhythm. Pulses: Normal pulses. Pulmonary: Effort: Pulmonary effort is normal. No respiratory distress. Breath sounds: Normal breath sounds. Chest: Chest wall: No tenderness. Abdominal: General: Bowel sounds are normal. There is no distension. Palpations: Abdomen is soft. Abdomen is not rigid. Tenderness: There is no abdominal tenderness. There is left CVA tenderness. There is no right CVA tenderness, guarding or rebound. Negative signs include Ardon's sign and McBurney's sign. Comments: Mild Musculoskeletal: General: No tenderness. Lymphadenopathy: Head: Right side of head: No submental, submandibular, tonsillar, preauricular, posterior auricular or occipital adenopathy. Left side of head: No submental, submandibular, tonsillar, preauricular, posterior auricular or occipital adenopathy. Cervical: Right cervical: No superficial or posterior cervical adenopathy. Left cervical: No superficial or posterior cervical adenopathy. Skin: General: Skin is warm and dry. Findings: No rash. Neurological: Mental Status: She is alert and oriented to person, place, and time. ASSESSMENT/PLAN: 1. Urinary frequency - ICD9: 788.41, ICD10: R35.0 (primary diagnosis) - UA DIP, URINE (POC) - URINE CULTURE - CONSULT TO UROLOGY 2. Recurrent UTI (urinary tract infection) - ICD9: 599.0, ICD10: N39.0 Nontoxic-appearing. Hemodynamically stable. Diagnosed with recurrent UTI. Positive for leukocytes nitrites. Referred to urology due to frequent UTIs. Will place on Keflex today. Culture pending. Treating quarterly and culture results. Red flags ER evaluation discussed. Patient was educated on supportive therapies. Patient will follow up with primary care provider as needed. Patient was instructed to immediately proceed to emergency room for any new, worsening, or symptoms lasting longer than anticipated. The patient's clinical presentation is oth (more content not included)... Normal [facility] UA DIP, URINE (POC)on 2023 BILIRUBIN UA (POCT) Negative Negative [facility] CLARITY UA (POCT) Cloudy [facility] COLOR UA (POCT) [place] [facility] GLUCOSE UA (POCT) Negative Negative mg/dL [facility] Hemoglobin Ql (U) Small Abnormal Negative [facility] Interpretation and review of laboratory results Abnormal [facility] KETONE UA (POCT) Negative Negative mg/dL [facility] LEUKOCYTES UA (POCT) Moderate Abnormal Negative [facility] NITRITE UA (POCT) Positive Abnormal Negative [facility] PH UA (POCT) 7.0 4.5 - 8.[address] [facility] Protein Ql (U) Trace Abnormal Negative mg/dL [facility] SPECIFIC GRAVITY UA (POCT) 1.010 1.005 - 1.[address] [facility] UROBILINOGEN UA (POCT) 0.2 Nidia l E.U./dL [facility] Location:[address], [place], [place], [address] [place] [address] POINT OF CARE [facility] Urine Cultureon 05-03-2024 [facility] Escherichia coli [place] Count >100,000 Escherichia coli: REACTION Ampicillin Islt KURTIS >=32 R Ampicillin+Sulbac Islt KURTIS >=32 R ceFAZolin Islt KURTIS <=4 S Cefepime Islt KURTIS <=0.12 S cefTRIAXone Islt KURTIS <=0.25 S Ciprofloxacin Islt KURTIS 0.5 S Ertapenem Islt KURTIS <=0.12 S B-Lactamase Extended Susc Islt NEG Gentamicin Islt KURTIS >=16 R Imipenem Islt KURTIS <=0.25 S levoFLOXacin Islt KURTIS 1 S Nitrofurantoin Islt KURTIS <=16 S Pip+Tazo Islt KURTIS <=4 S Tobramycin Islt KURTIS 8 I TMP SMX Islt KURTIS >=[address] [facility] Comment on above: Performed By: #### M 100.2200 #### [facility] [address] [place], [address] CBC W/Diff, Automatedon 04-15 Absolute Lymph 2.62 X10 3/uL Normal 0.83-4.51 [facility] Comment on above: Order Comment: Order Date: 05/01/24 Order Info: [id number]- - CBCD Performed By: #### L 100.0100, L500.4050, L500.4100, L506.1000 #### [facility] [address] [place], [address] Absolute Neut 6.6 X10 3/uL Normal 2.0-7.7 [facility] Comment on above: Order Comment: Order Date: 05/01/24 Order Info: 018- - CBCD Performed By: #### L 100.0100, L500.4050, L500.4100, L506.1000 #### [facility] [address] [place], [address] Basophils/100 WBC (Bld) 0.2 % Normal 0-[address] [facility] Comment on above: Order Comment: Order Date: 05/01/24 Order Info: [id number] - CBCD Performed By: #### L 100.0100, L500.4050, L500.4100, L506.1000 #### [facility] [address] [place], [address] Eosinophils/100 WBC (Bld) 0.4 % Normal 0-5 [facility] Comment on above: Order Comment: Order Date: 05/01/24 Order Info: 0184-1 - CBCD Performed By: #### L 100.0100, L500.4050, L500.4100, L506.1000 #### [facility] [address] [place], [address] Erythrocyte distribution width (RBC) [Ratio] 15.0 % High 11.6-14.6 [facility] Comment on above: Order Comment: Order Date: 05/01/24 Order Info: 0184-1 - CBCD Performed By: #### L 100.0100, L500.4050, L500.4100, L506.1000 #### [facility] [address] [place], [address] Hematocrit (Bld) [Volume fraction] 37.3 % Normal 37-47 [facility] Comment on above: Order Comment: Order Date: 05/01/24 Order Info: 0184-1 - CBCD Performed By: #### L 100.0100, L500.4050, L500.4100, L506.1000 #### [facility] [address] [place], [address] Hemoglobin (Bld) [Mass/Vol] 11.8 g/dL Low 12.0-15.0 [facility] Comment on above: Order Comment: Order Date: 05/01/24 Order Info: 0184-1 - CBCD Performed By: #### L 100.0100, L500.4050, L500.4100, L506.1000 #### [facility] [address] [place], [address] IG% 0.800 Normal 0.0-0.9 [facility] Comment on above: Order Comment: Order Date: 05/01/24 Order Info: 0184-1 - CBCD Result Comment: IG% - Immature Granulocytes (promyelocytes, myelocytes and metamyelocytes) > 1% indicates that a LEFT SHIFT is Present. Performed By: #### L 100.0100, L500.4050, L500.4100, L506.1000 #### [facility] [address] [place], [address] Lymphocytes/100 WBC (Bld) 25.9 % Normal 19-41 [facility] Comment on above: Order Comment: Order Date: 05/01/24 Order Info: 018-1 - CBCD Performed By: #### L 100.0100, L500.4050, L500.4100, L506.1000 #### [facility] [address] [place], [address] MCH (RBC) [Entitic mass] 31.1 pg Normal 27.0-32.0 [facility] Comment on above: Order Comment: Order Date: 05/01/24 Order Info: 018- - CBCD Performed By: #### L 100.0100, L500.4050, L500.4100, L506.1000 #### [facility] [address] [place], [address] MCHC (RBC) [Mass/Vol] 31.6 g/dL Low 32-36 [facility] Comment on above: Order Comment: Order Date: 05/01/24 Order Info: 018- - CBCD Performed By: #### L 100.0100, L500.4050, L500.4100, L506.1000 #### [facility] [address] [place], [address] MCV (RBC) [Entitic vol] 98.2 fL Normal 81-[address] [facility] Comment on above: Order Comment: Order Date: 05/01/24 Order Info: 018- - CBCD Performed By: #### L 100.0100, L500.4050, L500.4100, L506.1000 #### [facility] [address] [place], [address] Monocytes/100 WBC (Bld) 7.7 % Normal 0-[address] [facility] Comment on above: Order Comment: Order Date: 05/01/24 Order Info: 018- - CBCD Performed By: #### L 100.0100, L500.4050, L500.4100, L506.1000 #### [facility] [address] [place], [address] Neutrophils/100 WBC (Bld) 65.0 % Normal 47-70 [facility] Comment on above: Order Comment: Order Date: 05/01/24 Order Info: 0184-1 - CBCD Performed By: #### L 100.0100, L500.4050, L500.4100, L506.1000 #### [facility] [address] [place], [address] Nucleated RBC (Bld) [#/Vol] 0 10*3/uL Normal 0-5 [facility] Comment on above: Order Comment: Order Date: 05/01/24 Order Info: 0184-1 - CBCD Performed By: #### L 100.0100, L500.4050, L500.4100, L506.1000 #### [facility] [address] [place], [address] Platelet mean volume (Bld) [Entitic vol] 9.3 fL Normal 6.2-12.0 [facility] Comment on above: Order Comment: Order Date: 05/01/24 Order Info: 0184-1 - CBCD Performed By: #### L 100.0100, L500.4050, L500.4100, L506.1000 #### [facility] [address] [place], [address] Platelets (Bld) [#/Vol] 319 10*3/uL Normal 150-450 [facility] Comment on above: Order Comment: Order Date: 05/01/24 Order Info: 0184-1 - CBCD Performed By: #### L 100.0100, L500.4050, L500.4100, L506.1000 #### [facility] [address] [place], [address] RBC (Bld) [#/Vol] 3.80 10*6/uL Low 4.2-5.4 [facility] Comment on above: Order Comment: Order Date: 05/01/24 Order Info: 0184-1 - CBCD Performed By: #### L 100.0100, L500.4050, L500.4100, L506.1000 #### [facility] [address] [place], [address] RDW SD 53.8 fl High 35.1-43.9 [facility] Comment on above: Order Comment: Order Date: 05/01/24 Order Info: 0184-1 - CBCD Performed By: #### L 100.0100, L500.4050, L500.4100, L506.1000 #### [facility] [address] [place], [address] WBC (Bld) [#/Vol] 10.1 10*3/uL Normal 4.4-11.0 [facility] Comment on above: Order Comment: Order Date: 05/01/24 Order Info: 0184-1 - CBCD Performed By: #### L 100.0100, L500.4050, L500.4100, L506.1000 #### [facility] [address] [place], [address] Comprehensive Metabolic Prof ilon 05-01-2024 Albumin [Mass/Vol] 3.6 g/dL Normal 3.2-5.0 [facility] Comment on above: Order Comment: Order Date: 05/01/24 Order Info: [id number] - CMP Order Info: [id number] - LIPID Performed By: #### L 100.0100, L500.4050, L500.4100, L506.1000 #### [facility] [address] [place], [address] Albumin/Globulin [Mass ratio] 1.2 {ratio} Normal 0.9-2.4 [facility] Comment on above: Order Comment: Order Date: 05/01/24 Order Info: [id number] - CMP Order Info: [id number] - LIPID Performed By: #### L 100.0100, L500.4050, L500.4100, L506.1000 #### [facility] [address] [place], [address] ALK P 68 U/L Normal 45-117 [facility] Comment on above: Order Comment: Order Date: 05/01/24 Order Info: 0786-1 - CMP Order Info: [id number] - LIPID Performed By: #### L 100.0100, L500.4050, L500.4100, L506.1000 #### [facility] [address] [place], [address] ALT [Catalytic activity/Vol] 16 U/L Normal 13-56 [facility] Comment on above: Order Comment: Order Date: 05/01/24 Order Info: 0786- - CMP Order Info: [id number] - LIPID Performed By: #### L 100.0100, L500.4050, L500.4100, L506.1000 #### [facility] [address] [place], [address] AST [Catalytic activity/Vol] 12 U/L Low 15-37 [facility] Comment on above: Order Comment: Order Date: 05/01/24 Order Info: 0786- - CMP Order Info: [id number] - LIPID Performed By: #### L 100.0100, L500.4050, L500.4100, L506.1000 #### [facility] [address] [place], [address] Bilirubin [Mass/Vol] 0.50 mg/dL Normal 0.20-1.00 [facility] Comment on above: Order Comment: Order Date: 05/01/24 Order Info: [id number] - CMP Order Info: [id number] - LIPID Result Comment: For patients on eltrombopag therapy, use of [place] TBIL is not recommended. Performed By: #### L 100.0100, L500.4050, L500.4100, L506.1000 #### [facility] [address] [place], [address] BUN/CRE 16.3 RATIO Normal 10-20 [facility] Comment on above: Order Comment: Order Date: 05/01/24 Order Info: 0786-1 - CMP Order Info: [id number] - LIPID Performed By: #### L 100.0100, L500.4050, L500.4100, L506.1000 #### [facility] [address] [place], [address] CA,Total 9.1 mg/dL Normal 8.5-10.1 [facility] Comment on above: Order Comment: Order Date: 05/01/24 Order Info: 0786- - CMP Order Info: [id number] - LIPID Performed By: #### L 100.0100, L500.4050, L500.4100, L506.1000 #### [facility] [address] [place], [address] Chloride [Moles/Vol] 101 mmol/L Normal 98-107 [facility] Comment on above: Order Comment: Order Date: 05/01/24 Order Info: 0786- - CMP Order Info: [id number] - LIPID Performed By: #### L 100.0100, L500.4050, L500.4100, L506.1000 #### [facility] [address] [place], [address] CO2 [Moles/Vol] 32.0 mmol/L Normal 21.0-32.0 [facility] Comment on above: Order Comment: Order Date: 05/01/24 Order Info: [id number] - CMP Order Info: [id number] - LIPID Performed By: #### L 100.0100, L500.4050, L500.4100, L506.1000 #### [facility] [address] [place], [address] Creatinine [Mass/Vol] 0.92 mg/dL Normal 0.55-1.02 [facility] Comment on above: Order Comment: Order Date: 05/01/24 Order Info: [id number] - CMP Order Info: [id number] - LIPID Result Comment: The validity of the calculated GFR GFRAA in patients over 70 years has not been determined. Clinical correlation is essential. Performed By: #### L 100.0100, L500.4050, L500.4100, L506.1000 #### [facility] [address] [place], [address] EST GFR - AA 78 mL/min Normal >60 [facility] Comment on above: Order Comment: Order Date: 05/01/24 Order Info: 0786- - CMP Order Info: [id number] - LIPID Result Comment: Afri can [place] GFR Calc Performed By: #### L 100.0100, L500.4050, L500.4100, L506.1000 #### [facility] [address] [place], [address] GAP 3 Low 5-15 [facility] Comment on above: Order Comment: Order Date: 05/01/24 Order Info: [id number] - CMP Order Info: [id number] - LIPID Performed By: #### L 100.0100, L500.4050, L500.4100, L506.1000 #### [facility] [address] [place], [address] GFR/1.73 sq M.predicted among non-blacks MDRD (S/P/Bld) [Vol rate/Area] 64 mL/min/{1.73_m2} Normal >60 [facility] Comment on above: Order Comment: Order Date: 05/01/24 Order Info: [id number] - CMP Order Info: [id number] - LIPID Result Comment: Non- GFR Calc Performed By: #### L 100.0100, L500.4050, L500.4100, L506.1000 #### [facility] [address] [place], [address] Globulin (S) [Mass/Vol] 3.1 g/dL Normal 2.2-4.2 [facility] Comment on above: Order Comment: Order Date: 05/01/24 Order Info: [id number] - CMP Order Info: [id number] - LIPID Performed By: #### L 100.0100, L500.4050, L500.4100, L506.1000 #### [facility] [address] [place], [address] Glucose [Mass/Vol] 89 mg/dL Normal 74-106 [facility] Comment on above: Order Comment: Order Date: 05/01/24 Order Info: 0786-1 - CMP Order Info: [id number] - LIPID Performed By: #### L 100.0100, L500.4050, L500.4100, L506.1000 #### [facility] [address] [place], [address] Potassium [Moles/Vol] 4.0 mmol/L Normal 3.5-5.1 [facility] Comment on above: Order Comment: Order Date: 05/01/24 Order Info: [id number] - CMP Order Info: [id number] - LIPID Performed By: #### L 100.0100, L500.4050, L500.4100, L506.1000 #### [facility] [address] [place], [address] Sodium [Moles/Vol] 136 mmol/L Normal 136-145 [facility] Comment on above: Order Comment: Order Date: 05/01/24 Order Info: 0786-1 - CMP Order Info: [id number] - LIPID Performed By: #### L 100.0100, L500.4050, L500.4100, L506.1000 #### [facility] [address] [place], [address] T PROT 6.7 g/dL Normal 6.4-8.2 [facility] Comment on above: Order Comment: Order Date: 05/01/24 Order Info: 0786-1 - CMP Order Info: [id number] - LIPID Performed By: #### L 100.0100, L500.4050, L500.4100, L506.1000 #### [facility] [address] [place], [address] Urea nitrogen [Mass/Vol] 15 mg/dL Normal 7-18 [facility] Comment on above: Order Comment: Order Date: 05/01/24 Order Info: 0786-1 - CMP Order Info: [id number] - LIPID Performed By: #### L 100.0100, L500.4050, L500.4100, L506.1000 #### [facility] [address] [place], [address] Lipid Profileon 05-01-2024 Cholesterol [Mass/Vol] 179 mg/dL Normal 200 [facility] Comment on above: Order Comment: Order Date: 05/01/24 Order Info: 0786-1 - CMP Order Info: [id number] - LIPID Result Comment: <200 mg/dL Desirable 200-240 mg/dL Borderline >240 mg/dL High Risk Performed By: #### L 100.0100, L500.4050, L500.4100, L506.1000 #### [facility] [address] [place], [address] Cholesterol in HDL [Mass/Vol] 103 mg/dL Normal [facility] Comment on above: Order Comment: Order Date: 05/01/24 Order Info: 0786-1 - CMP Order Info: [id number] - LIPID Result Comment: The drugs N-Acetylcysteine and Metamizole may falsely depress this assay. Reference Range HDL <40 mg/dL Low HDL Cholesterol HDL >or= 60 mg/dL High HDL Cholesterol Performed By: #### L 100.0100, L500.4050, L500.4100, L506.1000 #### [facility] [address] [place], [address] Cholesterol in LDL [Mass/Vol] 63 mg/dL Normal 0-130 [facility] Comment on above: Order Comment: Order Date: 05/01/24 Order Info: [id number] - [facility] Order Info: [id number] - LIPID Performed By: #### L 100.0100, L500.4050, L500.4100, L506.1000 #### [facility] [address] [place], [address] Cholesterol in VLDL [Mass/Vol] 13 mg/dL Normal 5-40 [facility] Comment on above: Order Comment: Order Date: 05/01/24 Order Info: [id number] - CMP Order Info: [id number] - LIPID Performed By: #### L 100.0100, L500.4050, L500.4100, L506.1000 #### [facility] [address] [place], [address] Triglyceride [Mass/Vol] 64 mg/dL Normal [facility] Comment on above: Order Comment: Order Date: 05/01/24 Order Info: [id number] - [facility] Order Info: [id number] - LIPID Result Comment: The drugs N-Acetylcysteine and Metamizole may falsely depress this assay. Serum Triglycerides Reference Interval Normal <150 mg/dL Borderline high 150 - 199 mg/dL High 200 - 499 mg/dL Very High > or = 500 mg/dL Performed By: #### L 100.0100, L500.4050, L500.4100, L506.1000 #### [facility] [address] [place], [address] Vitamin D,25 Hydroxyon 05-01 Vitamin D 25-OH 19.4 ng/mL Normal [facility] Comment on above: Order Comment: Order Date: 05/01/24 Order Info: [id number] - VITD25 Result Comment: Lisa min D 25(OH) Status Range Deficiency <20 ng/mL (50nmol/L) Insufficiency 20 - 30 ng/mL (50 - 75 nmol/L) Sufficiency 30 - 100 ng/mL (75 - 250 nmol/L) Toxicity >100 ng/mL (>250 nmol/L) Performed By: #### L 100.0100, L500.4050, L500.4100, L506.1000 #### [facility] [place], [address] OV 04-25-2024 CN Office Visit ([facility]) ---- JAMEE CASTROELA Rashida ([id number]) 1955 F Date Time Provider Department 04/25/24 11:30 AM DARIN MCFADDEN RUST During your visit today, we recorded the following information about you: Temperature Pulse Respiration Blood pressure 97.9 degrees 79/minute 16/minute 148/82 Weight 52.2 kg Darin Mcfadden, CUSTOMER SUPPLY COORDINATOR.[facility] 04/25/2024 11:42 AM Signed Low Back Pain Low back pain is pain and stiffness in the small of the back. With low back pain, pain may also occur in the buttocks or legs. Simple exercises and good posture can help most cases of low back pain. In a few cases, medications, physical therapy or surgery may be needed. The spine is made up of ring-like bones called vertebrae. The vertebrae are stacked on top of each other and form a strong column that keeps the head and body standing up. Between each vertebra is a jelly-like disk that has a tough outside edge. These disks are like cushions between the vertebrae. Muscles and tissues hold vertebrae in the right place. The lower back consists of five vertebrae. These vertebrae make up the inward curve of the lower back. What causes low back pain? The most common cause of low back pain is overstretched or injured muscles that support the lower back. Muscles and connective tissues can become hurt from lifting or carrying heavy objects incorrectly. Muscles in the back can also become weak from a lack of exercise. Exercises to make the muscles in the back and abdomen strong can lessen pain. Low back pain can also be caused by: Bad posture Standing or sitting in the same place for a long time Slipped disk; a slipped disk is when a disk between vertebrae bulges past the bones and presses against a nerve. Being very overweight Osteoporosis (thinning of bone) Osteoarthritis, which is the break down of tissues or bones of the joint Fibromyalgia, which is an illness that causes achy, tender muscles; the person with fibromyalgia may also sleep poorly, have headaches, and often feel tired Serious illnesses such as cancer, infection, or another illness can cause low back pain, but this is rare How is low back pain treated? Many times, low back pain can be helped by exercise and keeping good posture while sitting, standing, and sleeping. You can also learn ways to protect your back when bending, lifting, and exercising. People who are overweight might lessen low back pain by losing weight. What can I do if I have low back pain? 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 While working in the kitchen, open the cabinet under the sink and rest your foot on the inside of the cabinet. Change feet every 5 to 15 minutes. Keep good posture by standing with your head up, shoulders straight, chest forward, weight balanced evenly on both feet, and hips tucked in. Sitting Make sure your chair has good lower back support. The back of the chair should be curved to give support where the small of the back meets the chair. Keep your knees a little higher than your hips by using a foot rest or stool. Don't twist at the waist while sitting. Instead, turn your whole body. Sleeping Sleep on your side with your knees bent. You can also put a pillow between your knees. Try not to sleep on your stomach. If you sleep on your back, put pillows under your knees and a small pillow under the small of your back. Lifting objects Before you lift a heavy object, get a firm footing. Bend your knees to lower yourself to the level of the object, keeping your lower back straight. Tighten your stomach muscles and lift the object using your leg muscles. Don't jerk the object up to your body. Never bend from the waist with your knees straight. If you are lifting an object from a table, slide it to the edge of the table so that you can hold it close to your body. Bend your knees so that you are close to the object. Use your legs to lift the object and come to a standing position. Avoid lifting heavy objects above waist level. Hold packages close to your body with your arms bent. References [employer] [place] [employer] St[employer]. Low Back Pain Fact Sheet. Accessed 12/05/2012 [employer]. Low Back Pain. Accessed 12/05/2012 [employer]. Back Pain Facts AND Statistics. Accessed 12/05/2012 Graciela SD, Timothy S, Amilcar RS. Back pain made simple: an approach based on principles and evidence. [facility] Med. 2009;76:393-399 Darin Mcfadden, CUSTOMER SUPPLY COORDINATOR.CLUB STEWARD 04/25/2024 11:47 AM Signed Patient presents with: Pain, Back: RIGHT side radiates down buttock x 2.5 days; currently being treated for UTI SUBJECTIVE: Jenifer Castro is a 69 year old year old female who presents for the past 2 days with symptoms that are:gradually worsening. Right sided lo (more content not included)... Normal [facility] Cytology report of Body flui d Cyto stainOrdered By: Jazlyn Cai on 04-07-2023 Cytology report Cyto stain Doc (Body fld) SEE PATHOLOGY REPORT [facility] Comment on above: Specimen submitted t Anatomical Pathology Department for testing. Cytology report of Body flui d Cyto stainOrdered By: Jazlyn Cai on 03-02-2023 Cytology report Cyto stain Doc (Body fld) SEE PATHOLOGY REPORT [facility] Comment on above: Specimen submitted t Anatomical Pathology Department for testing. Basophil percentageOrdered B y: Jazlyn Cai on 03-01-2023 Chloride [Moles/Vol] 98 mmol/L 98-107 [facility] Glucose [Mass/Vol] 97 mg/dL 74-106 [facility] Potassium [Moles/Vol] 3.3 mmol/L 3.5-5.1 [facility] Sodium [Moles/Vol] 132 mmol/L 136-145 [facility] WBC (Bld) [#/Vol] 8.8 10*3/uL 4.4-11.0 [facility] Blood erythrocytes count (nu mber/volume)Ordered By: Jazlyn Cai on 03-01-2023 RBC (Bld) [#/Vol] 4.44 10*6/uL 4.2-5.4 [facility] Blood hemoglobin measurement (mass/volume)Ordered By: Jazlyn Cai on 03-01-2023 Hemoglobin (Bld) [Mass/Vol] 14.3 g/dL 12.0-15.0 [facility] Blood platelet mean volumeOr dered By: Jazlyn Cai on 03-01-2023 Platelet mean volume (Bld) [Entitic vol] 9.6 fL 6.2-12.[address] [facility] [address] THORAX SCREENING W/O CONT RASTon 03-01-2023 CT THORAX SCREENING W/O CONTRAST ORIGINAL EXAMINATION: LOW DOSE SCREENING CT OF THE CHEST WITHOUT CONTRAST03/01/2023 2:37 pm TECHNIQUE: Low dose lung cancer screening CT of the chest was performed without the administration of intravenous contrast. Multiplanar reformatted images are provided for review. Automated exposure control, iterative reconstruction, and/or weight based adjustment of the mA/kV was utilized to reduce the radiation dose to as low as reasonably achievable. COMPARISON: None. HISTORY: 20+ pack-year smoking history FINDINGS: The heart is normal in size. Atherosclerosis seen of the coronary arteries and aorta. The great vessels appear normal in caliber. No lymphadenopathy is visible on this unenhanced exam. No suspicious findings seen in the visualized portion of the abdomen. The abdomen is not evaluated in detail. Fluid density cysts noted in the kidneys. On the right, the largest lesion is 4.7 cm and 9 Hounsfield units. Small hiatal hernia noted. No pulmonary consolidation is identified. No pneumothorax or pleural effusion.Upper lung predominant emphysema visualized. Tiny 2 mm left upper lobe nodule seen on image 18. There is a 2-3 mm left upper lobe nodule on image 24. Dependent atelectasis noted. Mild bronchiectasis seen. Tiny right upper lobe nodule on image 23 measures less than 3 mm. No aggressive osseous lesions visible. Degenerative changes seen in the spine. IMPRESSION: Small lung nodules. For patients with appropriate lung cancer risk, annual CT screening is recommended. Atherosclerosis with coronary artery calcifications Emphysema Information below is for Lung nodule tracking purposes: Nodule: S3 Other Findings: P-CAC Change: Na Recall : 1yr scr Recall Type: LDCT LungRads: 2s Interpreted by: Juan Francisco Nicholas MD Preliminary Report By: Juan Francisco Nicholas MD Electronically signed By Juan Francisco Nicholas MD Dictated Date: 03/01/2023 3:48:24 PM Prelim Date: 03/01/2023 3:53:48 PM Sign Date: 03/01/2023 3:53:48 PM Ordering Provider: DENNIS FIELD [facility] ([place]) Determination of erythrocyte mean corpuscular volume (MCV)Ordered By: Jazlyn Cai on 03-01-2023 MCV (RBC) [Entitic vol] 96.6 fL 81-[address] [facility] Hematocrit Auto (Bld) [Volum e fraction]Ordered By: Jazlyn Cai on 03-01-2023 Hematocrit (Bld) [Volume fraction] 42.9 % 37-47 [facility] - Chemistry and C hemistry - challengeOrdered By: Jazlyn Cai on 03-01-2023 CO2 [Moles/Vol] 26.0 mmol/L 21.0-32.0 [facility] Urea nitrogen/Creatinine [Mass ratio] 7.4 mg/mg 10-20 [facility] - Hematology and Cell countsOrdered By: Jazlyn Cai on 03-01-2023 Erythrocyte distribution width (RBC) [Entitic vol] 46.9 fL 35.1-43.9 [facility] Erythrocyte distribution width (RBC) [Ratio] 13.2 % 11.6-14.6 [facility] MCH (RBC) [Entitic mass] 32.2 pg 27.0-32.0 [facility] MCHC Auto (RBC) [Mass/Vol]Or dered By: Jazlyn Cai on 03-01-2023 MCHC (RBC) [Mass/Vol] 33.3 g/dL 32-36 [facility] No Panel InformationOrdered By: Jazlyn Cai on 03-01-2023 Estimated GFR (MDRD) Amer 112 mL/min >60 [facility] Comment on above: GFR Calc Estimated GFR (MDRD) Non-Af Amer 92 mL/min >60 [facility] Comment on above: Non- GFR Calc Platelets bldOrdered By: Maria Luisa Cai on 03-01-2023 Platelets (Bld) [#/Vol] 312 10*3/uL 150-450 [facility] Serum or plasma calcium mónica urement (mass/volume)Ordered By: Jazlyn Cai on 03-01-2023 Calcium [Mass/Vol] 9.3 mg/dL 8.5-10.1 [facility] Serum or plasma creatinine m easurement (mass/volume)Ordered By: Jazlyn Cai on 03-01-2023 Creatinine [Mass/Vol] 0.67 mg/dL 0.55-1.02 [facility] Comment on above: The validity of the calculated GFR & GFRAA in patients over 70 years has not been determined. Clinical correlation is essential. Serum or plasma urea nitroge n measurement (mass/volume)Ordered By: Jazlyn Cai on 03-01-2023 Urea nitrogen [Mass/Vol] 5 mg/dL 03-01 [facility] Thin prep Papanicolaou smear with manual screeningOrdered By: Jazlyn Cai on 03-01-2023 Thin prep Papanicolaou smear with manual screening 8 - [facility] No Panel Informationon 01-11 Culture Urine <10,000 cfu/ml. No Significant growth. Sensitivity not indicated. [facility] XR Thoracic spine AP and Lat eral and Swimmerson 11-30-2022 IMPRESSION: 1. Preservation of vertebral body height. 2. Degenerative changes in the visualized cervical and lumbar spines. 3. Findings suspect for underlying emphysema Business Center Attendant: RAJIV Transcribe Date/Time: Nov 30 2022 1:35P Dictated by : ASHLIE GALEAS MD This examination was interpreted and the report reviewed and electronically signed by: ASHLIE GALEAS MD on Nov 30 2022 1:37PM [facility] DIVISION OF RADIOLOGY * * *Final Report* * * DATE OF EXAM: Nov 30 2022 1:19PM WOX [id number] - XR THORACIC 3V AP/LAT/SWIMMERS / PROCEDURE REASON: Upper back pain * * * * Physician Interpretation * * * * TITLE: XR THORACIC 3V AP/LAT/SWIMMERS CLINICAL INDICATION: Back pain TECHNIQUE: 3 view radiographic study of the thoracic spine COMPARISON: None FINDINGS: Preservation of vertebral body height. Degenerative changes in the visualized cervical and upper lumbar spine with disc space narrowing and marginal osteophyte formation. Endplate sclerosis also visualized in the upper lumbar spine. Relative hyperlucent appearance of the upper lung zones suggests underlying emphysema. Curvilinear atelectasis versus scarring at the right lung base. DIVISION OF RADIOLOGY Provider, [facility] [place] - 11/30/2022 * * *Final Report* * * DATE OF EXAM: Nov 30 2022 1:19PM WOX [id number] - XR THORACIC 3V AP/LAT/SWIMMERS / PROCEDURE REASON: Upper back pain * * * * Physician Interpretation * * * * TITLE: XR THORACIC 3V AP/LAT/SWIMMERS CLINICAL INDICATION: Back pain TECHNIQUE: 3 view radiographic study of the thoracic spine COMPARISON: None FINDINGS: Preservation of vertebral body height. Degenerative changes in the visualized cervical and upper lumbar spine with disc space narrowing and marginal osteophyte formation. Endplate sclerosis also visualized in the upper lumbar spine. Relative hyperlucent appearance of the upper lung zones suggests underlying emphysema. Curvilinear atelectasis versus scarring at the right lung base. IMPRESSION IMPRESSION: 1. Preservation of vertebral body height. 2. Degenerative changes in the visualized cervical and lumbar spines. 3. Findings suspect for underlying emphysema Business Center Attendant: [facility] Transcribe Date/Time: Nov 30 2022 1:35P Dictated by : ASHLIE GALEAS MD This examination was interpreted and the report reviewed and electronically signed by: ASHLIE GALEAS MD on Nov 30 2022 1:37PM [facility] Radiology Study observation (narrative) [facility] XR Thoracic spine AP and Lat eral and SwimmersOrdered By: [facility] Provider on 11-30-[address] [facility] UA DIP, URINE (POC)on 2021 BILIRUBIN UA (POCT) Small Abnormal Negative [facility] CLARITY UA (POCT) Cloudy [facility] COLOR UA (POCT) Dark yellow [facility] GLUCOSE UA (POCT) Negative Negative mg/dL [facility] HEMOGLOBIN/BLOOD UA (POCT) Large Abnormal Negative [facility] KETONE UA (POCT) 15 mg/dL Abnormal Negative mg/dL [facility] LEUKOCYTES UA (POCT) Small Abnormal Negative [facility] NITRITE UA (POCT) Positive Abnormal Negative [facility] PH UA (POCT) 6.0 4.5 - 8.[address] [facility] Protein Ql (U) >=300 Abnormal Negative mg/dL [facility] SPECIFIC GRAVITY UA (POCT) >=1.030 1.005 - 1.[address] [facility] UROBILINOGEN UA (POCT) 1.0 E.U./dL Nidia l E.U./dL [facility] BD BONE DENSITY DEXA AXIAL S Salvador 03-29-2022 BD BONE DENSITY DEXA AXIAL SKELETON ORIGINAL EXAMINATION: BONE DENSITOMETRY03/29/20 12:39 pm TECHNIQUE: Dual energy bone densitometry lumbar spine and left hip. COMPARISON: 06/18/2016 HISTORY: Reason for Exam: Osteoporosis Screening FINDINGS: Total bone mineral density of the L1-L4 is 1.158 grams per square centimeters, and T-score being 1.0, indicating that this patient has normal bone mineral density. BMD change: +9.5%. Bone mineral density of the left femoral neck is 0.900 grams per square centimeters, and T-score being 0.5, indicating that this patient has normal bone mineral density. Total bone mineral density of the left hip is 0.940 grams per square centimeters, and T-score being 0.0, indicating that this patient has normal bone mineral density. BMD change: -8.6%. IMPRESSION: Normal bone mineral density. Interpreted by: Alejandra Ma MD Preliminary Report By: Alejandra Ma MD Electronically signed By Alejandra Ma MD Dictated Date: 03/29/2022 3:05:35 PM Prelim Date: 03/29/2022 3:06:43 PM Sign Date: 03/29/2022 3:06:43 PM Ordering Provider: DENNIS FIELD [facility] ([place]) MA MAMMOGRAM SCREENING BILAT ERAL W/TOMOon 03-29-2022 MA MAMMOGRAM SCREENING BILATERAL W/MARIA E ORIGINAL FROM: [facility] [address] [place], [place] [address] PROCEDURE FOR: JENIFER CASTRO [address] [place], [place] Home: PID#: [id number] Exam#: [id number] : 1955 Age: 67 TO: DENNIS FIELD DO [address] [place] [address] [place] [id number] Fax: NO FAX EXAMINATION: SCREENING DIGITAL BILATERAL MAMMOGRAM WITH TOMOSYNTHESIS, 03/29/2022 12:07 pm TECHNIQUE: Screening mammography of the bilateral breasts was performed with tomosynthesis. 2D standard and 3D tomosynthesis combination imaging performed through both breasts in the MLO and CC projection. Computer aided detection was utilized in the interpretation of this exam. COMPARISON: 07/08/2020, 03/09/2018 HISTORY: Breast cancer screening. FINDINGS: BREAST DENSITY: Heterogeneously dense There are benign calcifications in both breasts. There are no significant masses or calcifications. IMPRESSION: No mammographic evidence of malignancy. Continued screening with annual mammograms is recommended. BIRADS: MAMMOGRAM BI-RADS: 2: Benign finding RECALL: 1 year screening RECALL TYPE: mammo LETTER SENT: Normal BI-RADS 1 and 2 Interpreted by: Willis Zelaya MD Preliminary Report By: Willis Zelaya MD Electronically signed By Willis Zelaya MD Dictated Date: 04/03/2022 4:54:11 PM Prelim Date: 04/03/2022 4:55:52 PM Sign Date: 04/03/2022 4:55:52 PM Ordering Provider: DENNIS FIELD Business Proposal Rep: JESSICA LEWIS (Tara) (M) (CT) letter sent: Normal BI-RADS 1 and 2 Mammogram BI-RADS: 2 Benign Normal [facility] ([place]) UA DIP, URINE (POC)on 2021 BILIRUBIN UA (POCT) Large Abnormal Negative [facility] CLARITY UA (POCT) Cloudy [facility] COLOR UA (POCT) [place] [facility] GLUCOSE UA (POCT) 250 mg/dL Abnormal Negative mg/dL [facility] HEMOGLOBIN/BLOOD UA (POCT) Large Abnormal Negative [facility] KETONE UA (POCT) 40 mg/dL Abnormal Negative mg/dL [facility] LEUKOCYTES UA (POCT) Large Abnormal Negative [facility] NITRITE UA (POCT) Positive Abnormal [facility] PH UA (POCT) 6.0 4.5 - 8.[address] [facility] Protein Ql (U) >=300 Abnormal Negative mg/dL [facility] SPECIFIC GRAVITY UA (POCT) 1.015 1.005 - 1.[address] [facility] UROBILINOGEN UA (POCT) >=8.0 Abnormal Nidia l E.U./dL [facility] Vital Signs Date Time Vital Sign Value Performing Clinician Facility 07-23-2024 13:06-0500 Body height 162.6 cm Gibson Kelly APRN.CNP, DNP Work Phone: [facility] 07-23-2024 13:06-0500 Body mass index (BMI) [Ratio] 19.57 kg/m2 Gibson Kelly APRN.CNP, DNP Work Phone: [facility] 07-23-2024 13:06-0500 Body temperature 98.4 [degF] Gibson Kelly APRN.CNP, DNP Work Phone: [facility] 07-23-2024 13:06-0500 Body weight 51.71 kg Gibson Kelly APRN.CNP, DNP Work Phone: [facility] 07-23-2024 13:06-0500 Diastolic blood pressure 76 mm[Hg] Gibson Kelly APRN.CNP, DNP Work Phone: [facility] 07-23-2024 13:06-0500 Heart rate 100 /min Gibson Kelly APRN.CNP, DNP Work Phone: [facility] 07-23-2024 13:06-0500 Respiratory rate 14 /min Gibson Kelly APRN.CNP, DNP Work Phone: [facility] 07-23-2024 13:06-0500 SaO2% (BldA) [Mass fraction] 95 % Gibson Kelly APRN.CNP, DNP Work Phone: [facility] 07-23-2024 13:06-0500 Systolic blood pressure 128 mm[Hg] Gibson Kelly APRN.CNP, DNP Work Phone: [facility] 06-19-2024 15:52-0500 Body temperature 98.71 [degF] Alen Rodriguez APRN.CNP Work Phone: [facility] 06-19-2024 15:52-0500 Body weight 52.3 kg Alen Pendcoybury CUSTOMER SUPPLY COORDINATOR.CLUB STEWARD Work Phone: [facility] 06-19-2024 15:52-0500 Diastolic blood pressure 66 mm[Hg] Alen Pendlebury CUSTOMER SUPPLY COORDINATOR.CLUB STEWARD Work Phone: [facility] 06-19-2024 15:52-0500 Heart rate 78 /min Alen Pendlebury CUSTOMER SUPPLY COORDINATOR.CLUB STEWARD Work Phone: [facility] 06-19-2024 15:52-0500 Respiratory rate 16 /min Alen Pendlebury CUSTOMER SUPPLY COORDINATOR.CLUB STEWARD Work Phone: [facility] 06-19-2024 15:52-0500 SaO2% (BldA) [Mass fraction] 97 % Alen Pendlebury CUSTOMER SUPPLY COORDINATOR.CLUB STEWARD Work Phone: [facility] 06-19-2024 15:52-0500 Systolic blood pressure 112 mm[Hg] Alen Pendlebury CUSTOMER SUPPLY COORDINATOR.CLUB STEWARD Work Phone: [facility] 04-25-2024 11:32-0400 Body temperature 97.9 [degF] Darin Indorf CUSTOMER SUPPLY COORDINATOR.CLUB STEWARD Work Phone: [facility] 04-25-2024 11:32-0400 Body weight 52.2 kg Darin Indorf CUSTOMER SUPPLY COORDINATOR.CLUB STEWARD Work Phone: [facility] 04-25-2024 11:32-0400 Diastolic blood pressure 82 mm[Hg] Darin Indorf CUSTOMER SUPPLY COORDINATOR.CLUB STEWARD Work Phone: [facility] 04-25-2024 11:32-0400 Heart rate 79 /min Darin Indorf CUSTOMER SUPPLY COORDINATOR.CLUB STEWARD Work Phone: [facility] 04-25-2024 11:32-0400 Respiratory rate 16 /min Darin Indorf CUSTOMER SUPPLY COORDINATOR.CLUB STEWARD Work Phone: [facility] 04-25-2024 11:32-0400 SaO2% (BldA) [Mass fraction] 96 % Darin Indorf CUSTOMER SUPPLY COORDINATOR.CLUB STEWARD Work Phone: [facility] 04-25-2024 11:32-0400 Systolic blood pressure 148 mm[Hg] Darin Mcfadden CUSTOMER SUPPLY COORDINATORSofiyaCLUB STEWARD Work Phone: [facility] 04-28-2023 10:36-0400 Body temperature 99.3 [degF] Dr. Dennis Field Work Phone: [facility] 04-28-2023 10:36-0400 Diastolic blood pressure 70 mm[Hg] Dr. Dennis iFeld Work Phone: [facility] 04-28-2023 10:36-0400 Heart rate 67 /min Dr. Dennis Field Work Phone: [facility] 04-28-2023 10:36-0400 Respiratory rate 16 /min Dr. Dennis Field Work Phone: [facility] 04-28-2023 10:36-0400 SaO2% (BldA) [Mass fraction] 96 % Dr. Dennis Field Work Phone: [facility] 04-28-2023 10:36-0400 Systolic blood pressure 133 mm[Hg] Dr. Dennis Field Work Phone: [facility] 04-28-2023 09:03-0400 Body height 162.[address] Dennis Field Work Phone: [facility] 04-28-2023 09:03-0400 Body mass index (BMI) [Ratio] 18.8 kg/m2 Dr. Dennis Field Work Phone: [facility] 04-28-2023 09:03-0400 Body weight 49.[address] Dennis Field Work Phone: [facility] 04-07-2023 13:44-0400 Body temperature 98.9 [degF] Dr. Dennis Field Work Phone: [facility] 04-07-2023 13:44-0400 Diastolic blood pressure 95 mm[Hg] Dr. Dennis Field Work Phone: [facility] 04-07-2023 13:44-0400 Heart rate 67 /min Dr. Dennis Field Work Phone: [facility] 04-07-2023 13:44-0400 Respiratory rate 16 /min Dr. Dennis Field Work Phone: [facility] 04-07-2023 13:44-0400 SaO2% (BldA) [Mass fraction] 99 % Dr. Dennis Field Work Phone: [facility] 04-07-2023 13:44-0400 Systolic blood pressure 131 mm[Hg] Dr. Dennis Field Work Phone: [facility] 04-07-2023 11:36-0400 Body height 162.[address] Dennis Field Work Phone: [facility] 04-07-2023 11:36-0400 Body mass index (BMI) [Ratio] 18.5 kg/m2 Dr. Dennis Field Work Phone: [facility] 04-07-2023 11:36-0400 Body weight [address] Dennis Field Work Phone: [facility] 04-05-2023 11:32-0400 Body height 162.[address] Dennis Field Work Phone: [facility] 04-05-2023 11:32-0400 Body mass index (BMI) [Ratio] 18.8 kg/m2 Dr. Dennis Field Work Phone: [facility] 04-05-2023 11:32-0400 Body weight 49.[address] Dennis Field Work Phone: [facility] 04-05-2023 11:32-0400 Diastolic blood pressure 76 mm[Hg] Dr. Dennis Field Work Phone: [facility] 04-05-2023 11:32-0400 Heart rate 66 /min Dr. Dennis Field Work Phone: [facility] 04-05-2023 11:32-0400 Respiratory rate 18 /min Dr. Dennis Field Work Phone: [facility] 04-05-2023 11:32-0400 SaO2% (BldA) [Mass fraction] 95 % Dr. Dennis Field Work Phone: [facility] 04-05-2023 11:32-0400 Systolic blood pressure 135 mm[Hg] Dr. Dennis Field Work Phone: [facility] 05-25-2022 17:56-0400 Body temperature 98.01 [degF] Ines Yates CUSTOMER SUPPLY COORDINATOR.CLUB STEWARD Work Phone: [facility] 05-25-2022 17:56-0400 Body weight 52.16 kg Ines Yates CUSTOMER SUPPLY COORDINATOR.CLUB STEWARD Work Phone: [facility] 05-25-2022 17:56-0400 Diastolic blood pressure 68 mm[Hg] Ines Yates CUSTOMER SUPPLY COORDINATOR.CLUB STEWARD Work Phone: [facility] 05-25-2022 17:56-0400 Heart rate 106 /min Ines Yates CUSTOMER SUPPLY COORDINATOR.CLUB STEWARD Work Phone: [facility] 05-25-2022 17:56-0400 Respiratory rate 16 /min Ines Yates CUSTOMER SUPPLY COORDINATOR.CLUB STEWARD Work Phone: [facility] 05-25-2022 17:56-0400 SaO2% (BldA) [Mass fraction] 95 % Ines Yates CUSTOMER SUPPLY COORDINATOR.CLUB STEWARD Work Phone: [facility] 05-25-2022 17:56-0400 Systolic blood pressure 118 mm[Hg] Ines Yates CUSTOMER SUPPLY COORDINATOR.CLUB STEWARD Work Phone: [facility] 02-13-2022 12:50-0400 Body temperature 96.91 [degF] Alen Rodriguez CUSTOMER SUPPLY COORDINATOR.CLUB STEWARD Work Phone: [facility] 02-13-2022 12:50-0400 Body weight 52.16 kg Alen Rodriguez CUSTOMER SUPPLY COORDINATOR.CLUB STEWARD Work Phone: [facility] 02-13-2022 12:50-0400 Diastolic blood pressure 96 mm[Hg] [facility] CUSTOMER SUPPLY COORDINATOR.CLUB STEWARD Work Phone: [facility] 02-13-2022 12:50-0400 Heart rate 96 /min [facility] CUSTOMER SUPPLY COORDINATOR.CLUB STEWARD Work Phone: [facility] 02-13-2022 12:50-0400 Respiratory rate 19 /min [facility] CUSTOMER SUPPLY COORDINATOR.CLUB STEWARD Work Phone: [facility] 02-13-2022 12:50-0400 SaO2% (BldA) [Mass fraction] 97 % [facility] CUSTOMER SUPPLY COORDINATOR.CLUB STEWARD Work Phone: [facility] 02-13-2022 12:50-0400 Systolic blood pressure 164 mm[Hg] [facility] CUSTOMER SUPPLY COORDINATOR.CLUB STEWARD Work Phone: [facility] Encounters Encounter Date Encounter Type Care Provider Facility Start: 04-09-2025 End: 04-09-2025 ambulatory Magi Borden MD Work Phone: -[facility] Start: 04-09-2025 End: 04-09-[address] Magi Borden MD -[facility] Work Phone: Start: 04-09-2025 End: 04-09-2025 ambulatory Magi Borden Facility:[facility] Start: 02-12-2025 Non-patient / Non-visit Dr. Jazlyn bodn MD -[facility] Work Phone: Start: 12-11-2024 End: 12-11-2024 ambulatory Magi Borden MD Work Phone: [facility] Work Phone: Start: 12-11-2024 End: 12-11-[address] Magi Borden MD -[facility] Work Phone: Start: 12-11-2024 End: 12-11-2024 ambulatory Magi Borden Facility:[facility] Start: 07-25-2024 End: 07-25-2024 Telephone encounter Gibson Kelly APRN.HILARIA, ALESSANDRO Work Phone: Urology Comment on above: Medical Records Start: 07-24-2024 End: 07-24-2024 Telephone encounter Gibson Kelly APRN.HILARIA, ALESSANDRO Work Phone: Urology Comment on above: Results Start: 07-23-2024 End: 07-23-2024 ambulatory [facility] Facility:[facility] Start: 07-23-2024 End: 07-23-2024 Patient encounter procedure Gibson Kelly APRN.HILARIA, ALESSANDRO Work Phone: Urology Comment on above: Urinary frequency (P rimary Dx); Recurrent UTI (urinary tract infection) Start: 06-21-2024 End: 06-21-2024 Telephone encounter Michelle Hansen PA-C Work Phone: [email or web address] Comment on above: Results Start: 06-19-2024 End: 06-19-2024 [facility] Facility:[facility] Start: 06-19-2024 End: 06-19-2024 Office outpatient visit 25 minutes Alen Rodriguez CUSTOMER SUPPLY COORDINATOR.CLUB STEWARD Work Phone: [email or web address] Comment on above: Urinary frequency (P rimary Dx); Recurrent UTI (urinary tract infection) Start: 05-01-2024 End: 05-01-[address] [facility] Facility:[facility] Start: 04-25-2024 End: 04-25-2024 ambulatory [facility] Facility:[facility] Start: 04-25-2024 End: 04-25-2024 Office outpatient visit 15 minutes Darin Mcfadden CUSTOMER SUPPLY COORDINATOR.HILARIA Work Phone: [facility] Comment on above: Acute right-sided lo w back pain without sciatica (Primary Dx) Start: 05-05-2023 End: 05-05-2023 Patient encounter procedure DENNIS FIELD DO [facility] Start: 04-28-2023 End: 04-28-2023 Admission to same day surgery center Dr. Dennis Field Work Phone: [facility] Start: 04-28-2023 End: 04-28-[address] Dennis Field Work Phone: [facility] Work Phone: Start: 04-07-2023 End: 04-07-2023 Admission to same day surgery center Dr. Dennis Field Work Phone: [facility] Start: 04-07-2023 End: 04-07-[address] Dennis Field Work Phone: [facility] Work Phone: Start: 04-06-2023 Non-patient / Non-visit Dr. Ravinder Field Work Phone: [facility] Start: 04-06-2023 End: 04-06-[address] Dennis Field Work Phone: [facility] Work Phone: Start: 04-06-2023 End: 04-06-[address] Dennis Field Work Phone: [facility] Work Phone: Start: 04-05-2023 End: 04-05-2023 Encounter for other preprocedural examination Dr. Dennis Field Work Phone: [facility] Start: 04-05-2023 End: 04-05-[address] Dennis Field Work Phone: [facility] Work Phone: Start: 04-05-[address] Dennis Field Work Phone: [facility] Start: 03-31-2023 End: 03-31-[address] Dennis Field Work Phone: [facility] Work Phone: Start: 03-31-2023 End: 03-31-[address] Dennis Field Work Phone: [facility] Work Phone: Start: 03-21-2023 End: 03-21-[address] [facility] Work Phone: Start: 03-21-2023 End: 03-21-[address] [facility] Work Phone: Start: 03-02-2023 End: 03-02-[address] [facility] Work Phone: Start: 03-02-2023 End: 03-02-[address] [facility] Work Phone: Start: 03-01-2023 End: 03-01-[address] [facility] Work Phone: Start: 03-01-2023 End: 03-01-[address] [facility] [place] Work Phone: Start: 03-01-2023 End: 03-02-2023 ambulatory DENNIS FIELD DO Facility:B Start: 03-01-2023 End: 03-01-2023 Patient encounter procedure DENNIS FIELD DO [facility] Start: 01-11-2023 End: 01-16-2023 ambulatory DENNIS FIELD DO Facility:B Start: 01-11-2023 End: 01-15-2023 Outreach Lab DENNIS FIELD DO [facility] Start: 11-30-2022 End: 11-30-2022 Subsequent hospital visit by physician [facility] Work Phone: Radiology Comment on above: Upper back pain [M54 .9] Start: 05-25-2022 End: 05-25-2022 Patient encounter procedure Ines Yates CUSTOMER SUPPLY COORDINATOR.[employer]UB STEWARD Work Phone: [facility] Comment on above: Urinary frequency (P rimary Dx) Start: 03-29-2022 End: 03-30-2022 ambulatory DENNIS FIELD DO Facility:B Start: 03-29-2022 End: 03-29-2022 Patient encounter procedure DENNIS FIELD DO [facility] Start: 02-15-2022 Telephone encounter Natalia Milind Reich CUSTOMER SUPPLY COORDINATOR.CLUB STEWARD Work Phone: [facility] Comment on above: Results Start: 02-13-2022 End: 02-13-2022 Patient encounter procedure Alen Rodriguez CUSTOMER SUPPLY COORDINATOR.CLUB STEWARD Work Phone: [facility] Comment on above: Painful urination (P rimary Dx) Procedures Date Procedure Procedure Detail Performing Clinician Start: 04-09-2025 Vitamin D, 25-hydrox y measurement Magi Borden MD Work Phone: Comment on above: Vitamin D StatusDefi ciency: <20 ng/mL (50nmol/L)Insufficiency: 20-30 ng/mL (50-75 nmol/L)Sufficiency: 30-100 ng/mL (75-250 nmol/L)Toxicity: >100 ng/mL (>250 nmol/L) Start: 12-11-2024 Screening mammography Andres Borden MD Work Phone: Start: 07-23-2024 Urnls dip stick/tabl et rgnt auto w/o microscopy Gibson Kelly CUSTOMER SUPPLY COORDINATOR.CLUB STEWARD, DNP Work Phone: Start: 06-19-2024 Urnls dip stick/tabl et rgnt auto w/o microscopy Alen Rodriguez CUSTOMER SUPPLY COORDINATOR.HILARIA Work Phone: Start: 04-28-2023 Fluoroscopic guidance Citlalli Field Work Phone: Start: 04-28-2023 Cystoscopy and retro grade pyelography Dr. Dennis Field Work Phone: Start: 04-07-[address] Carla Field Work Phone: Start: 04-07-2023 Fluoroscopic guidance Citlalli Field Work Phone: Start: 04-06-2023 Radionuclide imaging of perfusion of myocardium under exercise stress Dr. Dennis Field Work Phone: Start: 03-21-2023 Computed tomography of abdomen and pelvis with contrast Start: 11-30-2022 Radex spine thoracic 3 views Alen Rodriguez CUSTOMER SUPPLY COORDINATOR.[employer] STEWARD Work Phone: Start: 05-25-2022 Urnls dip stick/tabl et rgnt auto w/o microscopy Natalia Guo CUSTOMER SUPPLY COORDINATOR.CL[employer] STEWARD Work Phone: Start: 02-13-2022 Urnls dip stick/tabl et rgnt auto w/o microscopy Summer Jang CUSTOMER SUPPLY COORDINATOR.CLUB STEWARD Work Phone: Start: 01-13-2019 Structure of eye pro per (body structure) DENNIS FIELD DO Comment on above: sx on eye lids to re move growths Start: 11-30-2012 Sigmoid colectomy DIXON FIELD DO Start: 08-15-2012 Peripherally inserte d central catheter (physical object) DENNIS FIELD DO Start: 02-18-2009 Mammography Alen glaser CUSTOMER SUPPLY COORDINATOR.CLUB STEWARD Work Phone: Start: 08-15-2005 Arthroscopy of knee FLORINA FIELD DO Comment on above: RIGHT left Start: 08-15-1987 Hysterectomy and caitie ateral salpingo-oophorectomy sample (specimen) DENNIS FIELD DO Cystoscopy DENNIS FIELD DO Comment on above: multiple Decompression of med janet nerve DENNIS FIELD DO Comment on above: LEFT Excision of bunion DENNIS RICHEY DO Comment on above: BILATERAL Ureteroscopy DENNIS FIELD DO Comment on above: stent placement Plan of Treatment Date Care Activity Detail Author Start: 01-21-2025 End: 01-21-2025 Patient encounter procedure 01/21/2025 2:30 PM EDT Office Visit Urology [address] [place] [address] Gibson Kelly APRN.CLUB STEWARD, DNP [address] [place], [place] [id number] 6 MTH F/U Urology Comment on above: 6 MTH F/U Start: 04-15-2024 Covid-19 Vaccine ( season) Covid-19 Vaccine ( season) [facility] Start: 04-15-2024 Covid-19 Vaccine ( season) Covid-19 Vaccine ( season) [facility] Start: 04-15-2024 Influenza vaccination Influenza Vaccine (#1) [facility] Start: 08-15-2023 Advance Directive Discussion Advance Directive Discussion [facility] Start: 05-09-2023 Pneumococcal Vaccine: 65+ (3 of 3 - PPSV23 or PCV20) Pneumococcal Vaccine: 65+ (3 of 3 - PPSV23 or PCV20) [facility] Start: 04-28-2023 Anes transurethral w/urethrocystoscopy nos ANESTH BLADDER SURGERY [facility] Start: 04-28-2023 Cysto w/urtroscopy&/pyeloscopy dx CYSTOURETERO & OR PYELOSCOPE [facility] Start: 04-28-[address] [facility] Start: 04-07-2023 Anes transurethral w/urethrocystoscopy nos ANESTH BLADDER SURGERY [facility] Start: 04-07-2023 Cysto w/insert ureteral stent CYSTOSCOPY AND TREATMENT [facility] Start: 04-07-[address] [facility] Start: 04-15-2022 Influenza vaccination INFLUENZA (#1) [facility] Start: 10-31-2021 COVID-19 VACCINE (4 - Booster for Moderna series) COVID-19 VACCINE (4 - Booster for Moderna series) [facility] Start: 08-28-2021 COVID-19 VACCINE (4 - Booster for Moderna series) COVID-19 VACCINE (4 - Booster for Moderna series) [facility] Start: 08-15-2021 ADVANCE DIRECTIVE DISCUSSION ADVANCE DIRECTIVE DISCUSSION [facility] Start: 08-15-2021 DEPRESSION ASSESSMENT DEPRESSION ASSESSMENT [facility] Start: 2019 BONE DENSITY BONE DENSITY [facility] Start: 2019 Screening for osteoporosis Bone Density Screening [facility] Start: 07-23-2015 Shingrix Vaccine (2 of 3) Shingrix Vaccine (2 of 3) [facility] Start: 02-18-2010 Mammography MAMMOGRAM [facility] Start: 02-18-2010 Screening for malignant neoplasm of breast Mammogram Screening [facility] Start: 2004 SHINGRIX VACCINE (1 of 2) SHINGRIX VACCINE (1 of 2) [facility] Start: 1999 COLOGUARD (FIT-DNA) COLOGUARD (FIT-DNA) [facility] Start: 1999 Colonoscopy COLONOSCOPY [facility] Start: 1999 COLORECTAL CANCER SCREENING COLORECTAL CANCER SCREENING [facility] Start: [address] COLONOGRAPHY [facility] Start: 1999 DIABETES SCREEN DIABETES SCREEN [facility] Start: 1999 Diabetes Screening Diabetes Screening [facility] Start: 1999 FECAL OCCULT BLOOD FECAL OCCULT BLOOD [facility] Start: 1999 Lipid panel Lipid Screening [facility] Start: 1999 LIPID SCREEN LIPID SCREEN [facility] Start: 1999 Screening for malignant neoplasm of colon [facility] Start: 1999 SIGMOIDOSCOPY SIGMOIDOSCOPY [facility] Start: 08-16-1995 Urine microalbumin profile DTaP,Tdap,Td Vaccine (1 - Tdap) [facility] Start: 1973 Urine microalbumin profile DTAP,TDAP,TD (1 - Tdap) [facility] Start: 1972 Anxiety Screening Anxiety Screening [facility] Start: 1972 Depression Screening Depression Screening [facility] Start: 1972 HEPATITIS C SCREENING HEPATITIS C SCREENING [facility] Start: 1972 Hepatitis C screening Hepatitis C Screening [facility] Start: 1966 Adult depression screening assessment DEPRESSION SCREENING [facility] Start: 1960 PNEUMOCOCCAL: 65+ (1 - PCV) PNEUMOCOCCAL: 65+ (1 - PCV) [facility] Bacteria identified in Urine by Culture URINE CULTURE Microbiology Routine Painful urination Ordered: 02/13/2022 [facility] Work Phone: Comment on above: Ordered: 02/13/2022 Bacteria identified in Urine by Culture URINE CULTURE Microbiology Routine Urinary frequency Ordered: 05/25/2022 [facility] Work Phone: Comment on above: Ordered: 05/25/2022 Bacteria identified in Urine by Culture URINE CULTURE Microbiology Routine Urinary frequency Ordered: 06/19/2024 [facility] Work Phone: Comment on above: Ordered: 06/19/2024 Cytology report of B jose fluid Cyto stain [facility] Cytology report of B jose fluid Cyto stain [facility] Electrocardiographic procedure [facility] Patient referral [facility] Work Phone: POST VOID RESIDUAL POST VOID RES IDUAL Procedures Routine Urinary frequency Ordered: 07/23/2024 [facility] Work Phone: Comment on above: Ordered: 07/23/2024 Urinalysis complete panel - Urine URINALYSIS, WITH MICROSCOPIC Lab Routine Urinary frequency 07/23/2024 1:51 PM EST [facility] Immunizations Immunization Date Immunization Notes Care Provider Yomaira cuevas 06-07-2023 influenza (aIIV4) vaccine, age 65+ yr, quadrivalent, PF (FLUAD QUAD) Alen Rodriguez CUSTOMER SUPPLY COORDINATOR.CLUB STEWARD Work Phone: [facility] 06-07-2023 respiratory syncytia l virus (RSV) vaccine, bivalent (ABRYSVO) Alen Rodriguez CUSTOMER SUPPLY COORDINATOR.CLUB STEWARD Work Phone: [facility] 06-07-2023 influenza virus vaccine, unspecified formulation Darin Mcfadden CUSTOMER SUPPLY COORDINATOR.CLUB STEWARD Work Phone: [facility] 05-31-2022 influenza (aIIV4) vaccine, age 65+ yr, quadrivalent, PF (FLUAD QUAD) Alen Rodriguez CUSTOMER SUPPLY COORDINATOR.CLUB STEWARD Work Phone: [facility] 05-31-2022 influenza virus vaccine, unspecified formulation DENNIS FIELD DO [facility] 07-03-2021 SARS-CoV-2 (COVID-19 ) mRNA-1273 vaccine DENNIS FIELD DO [facility] 04-15-2021 influenza (aIIV4) vaccine, age 65+ yr, quadrivalent, PF (FLUAD QUAD) Alen Dillardaileen CUSTOMER SUPPLY COORDINATOR.CLUB STEWARD Work Phone: [facility] 04-15-2021 influenza virus vaccine, unspecified formulation DENNIS FIELD DO [facility] 11-20-2020 SARS-CoV-2 (COVID-19 ) mRNA-1273 vaccine DENNIS FIELD DO [facility] 10-23-2020 SARS-CoV-2 (COVID-19 ) mRNA-1273 vaccine DENNIS FIELD DO [facility] Comment on above: Result Comment: 2020: [id number] 04-30-2020 influenza virus vaccine, unspecified formulation DENNIS FIELD DO [facility] 04-30-2020 influenza, injectabl e, quadrivalent, preservative free Alen [facility] CUSTOMER SUPPLY COORDINATOR.CLUB STEWARD Work Phone: [facility] 04-30-2020 pneumococcal conjuga te vaccine, 13 valent DENNIS FIELD DO [facility] 05-27-2019 influenza virus vaccine, unspecified formulation DENNIS FIELD DO [facility] 05-27-2019 Seasonal trivalent influenza vaccine, adjuvanted, preservative free Alen Pendlebury CUSTOMER SUPPLY COORDINATOR.CLUB STEWARD Work Phone: [facility] 05-09-2018 influenza virus vaccine, unspecified formulation DENNIS RASHIDA DO [facility] 05-09-2018 influenza, injectabl e, quadrivalent, preservative free Alen [place]bury CUSTOMER SUPPLY COORDINATOR.CLUB STEWARD Work Phone: [facility] 05-09-2018 pneumococcal polysaccharide vaccine, 23 valent DENNIS FIELD DO [facility] 06-01-2017 influenza virus vaccine, unspecified formulation DENNIS FIELD DO [facility] 06-01-2017 influenza, injectabl e, quadrivalent, preservative free Alen P[place]lebury CUSTOMER SUPPLY COORDINATOR.CLUB STEWARD Work Phone: [facility] 05-15-2017 pneumococcal conjuga te vaccine, 13 valent DENNIS FIELD DO [facility] 05-14-2017 pneumococcal conjuga te vaccine, 13 valent DENNIS RASHIDA DO [facility] 06-08-2016 influenza virus vaccine, unspecified formulation DENNIS FIELD DO [facility] 06-08-2016 influenza, injectabl e, quadrivalent, preservative free Alen Pendlebury CUSTOMER SUPPLY COORDINATOR.CLUB STEWARD Work Phone: [facility] 05-28-2015 influenza virus vaccine, unspecified formulation DENNIS FIELD DO [facility] 05-28-2015 influenza, seasonal, injectable, preservative free Alen P[place]lebury CUSTOMER SUPPLY COORDINATOR.CL[employer] STEWARD Work Phone: [facility] 05-28-2015 zoster vaccine, live DENNIS RASHIDA DO [facility] 06-20-2014 influenza virus vaccine, unspecified formulation DENNIS RASHIDA DO [facility] 06-20-2014 influenza, seasonal, injectable Alen Jennifer CUSTOMER SUPPLY COORDINATOR.CLUB STEWARD Work Phone: [facility] 09-11-2012 influenza virus vaccine, unspecified formulation DENNIS RASHIDA DO [facility] 09-11-2012 influenza, seasonal, injectable, preservative free DENNIS RASHIDA DO [facility] 08-04-2009 novel [id number], preservative-free, injectable Alen Dillardsamia CUSTOMER SUPPLY COORDINATOR.CLUB STEWARD Work Phone: [facility] 08-15-1995 tetanus and diphther ia toxoids, adsorbed, preservative free, for adult use (2 Lf of tetanus toxoid and 2 Lf of diphtheria toxoid) Alennavid Rodriguez CUSTOMER SUPPLY COORDINATOR.CLUB STEWARD Work Phone: [facility] 08-15-1995 tetanus and diphther ia toxoids, adsorbed, preservative free, for adult use (5 Lf of tetanus toxoid and 2 Lf of diphtheria toxoid) DENNIS FIELD DO [facility] 07-14-1995 tetanus and diphther ia toxoids, adsorbed, preservative free, for adult use (5 Lf of tetanus toxoid and 2 Lf of diphtheria toxoid) DENNIS FIELD DO [facility] Payers Date Payer Category Payer Self-pay 2021 Medicare HUMANA MEDICARE HUMANA MEDICARE PPO [id number] 2021-[facility] [phone] [place] [address] PPO [id number] 2021 Medicare HUMANA MEDICARE HUMANA MEDICARE PPO [id number] 2021-Present [phone] [address] [address] [place] [address] PPO [id number] 2021 Medicare [id number] 2010 Unknown [id number] 1954 Unknown [id number] 1954 Unknown [id number] 1954 Unknown [id number] Unknown [id number] Unknown [id number] Unknown [id number] Social History Date Type Detail Facility Start: 08-18-2021 End: 04-22-2023 Tobacco smoking status MEIS Smokes tobacco daily [facility] Start: 08-18-2021 End: 07-23-2024 Tobacco use and exposure Smokeless tobacco non-user [facility] Start: 1955 Sex Assigned At Not on file [facility] Start: 02-03-2022 End: 05-25-2022 Exposure to SARS-CoV-2 (event) Not sure [facility] Start: 09-26-2019 End: 04-19-2023 Tobacco smoking status Light tobacco smoker (finding) [facility] Comment on above: 09/26/2019 Pt states she is currently smoking about 1/2 pack daily Start: 1955 Sex Assigned At Female A [facility] Start: 04-05-2023 End: 04-22-2023 Tobacco smoking status NHIS Unknown if ever smoked [facility] Start: 04-25-2024 End: 07-23-2024 History of Social function [facility] Start: 04-25-2024 End: 07-23-2024 Tobacco use panel [facility] History of tobacco use Cigarette Smoker [facility] Start: 07-23-2024 Alcoholic beverage intake Current drinker of alcohol (finding) [facility] National Score (1-100), lower number is lower risk [address] [facility] NEGATED: Highlighted row [facility] Medical Equipment Procedure Code Equipment Code Equipment Origin al Text Equipment Identifier Dates Cystoureteroscopy, with stent insertion ([id number]) Polymeric ureteral stent [id number] FDA Start: 04-07-2023 Goals Date Patient Goal Desired Activity /State Mental Status Date Assessment Result Facility 04-28-2023 Cognitive function Voice/Name [facility] Work Phone: 04-07-2023 Cognitive function Voice/Name [facility] Work Phone: Clinical Notes 02-13-2022 to 07-25-2024 Telephone Encounter - Lucy Hardy LPN - 07/25/2024 9:42 AM ESTTelephone Encounter - Lucy Hardy LPN - 07/25/2024 9:42 AM ESTTelephone Encounter - Lucy Hardy LPN - 07/24/2024 4:35 PM EST Note Date & Type Note Facility 07-25-2024 Telephone encounter Note Received medical records from Dr. Cai via [employer]. Scanned to [employer]. Lucy Hardy LPN [facility] 07-25-2024 Miscellaneous Notes Received medical records from Dr. Cai via [employer]. Scanned to [employer]. Lucy Hardy LPN documented in this encounter [facility] 07-24-2024 Telephone encounter Note Called patient. Verified name and date of . Patient informed- verbalizes understanding. Lucy Hardy LPN [facility] 07-24-2024 Miscellaneous Notes Called patient. Verified name and date of . Patient informed- verbalizes understanding. Lucy Hardy LPN ----- Message from Gibson Kelly APRN.ALESSANDRO MANRIQUE sent at 07/24/2024 3:06 PM EST ----- Hi Team , Can you inform the patient - Your urine is negative for blood. The bacteria are likely bacteria from the skin that shed into your urine. Not significant at this time. Continue with our plan and follow up with me in 6 months. Sooner for any UTI symptoms. Gibson Kelly DNP, CNP Department of Urology [facility] documented in this encounter [facility] 07-24-2024 Telephone encounter Note ----- Message from Gibson Kelly APRN.ALESSANDRO MANRIQUE sent at 07/24/2024 3:06 PM EST ----- Hi Team , Can you inform the patient - Your urine is negative for blood. The bacteria are likely bacteria from the skin that shed into your urine. Not significant at this time. Continue with our plan and follow up with me in 6 months. Sooner for any UTI symptoms. Gibson Kelly DNP, CNP Department of Urology [facility] 07-23-2024 Gibson Munoz APRN.ALESSANDRO MANRIQUE - 07/23/2024 1:34 PM EST Chronic UTI Plan: Plan: - Daily Probiotic (Over the Counter) take at noon/lunchtime (Align brand) - Daily cranberry extract (Over the counter in a capsule or powder form) - Avoid constipation - Drink at least 64oz water per day. - Toilet every 2 hours to keep bladder empty Avoid bladder irritants - coffee, tea, cola drinks, chocolate, alcohol, artificial sweeteners and cigarettes Follow up with Gibson Kelly APRN.ALESSANDRO MANRIQUE in 6 month I discussed treatment options at length including r/b/a of each: To include Medication therapy and the role of further evaluation with UDS, CT urogram and cysto if indicated. Return to the clinic or seek care at Express[facility]Urgent Care for any worsening signs or symptoms: such as fevers, chills, worsening pain, gross blood in urine or worsening urinary symptoms. For severe symptoms seek care at the closest ER. Plan of care, medicaiton side effects and management reviewed with patient. Healthy Habits: Recommend regular physical activity, nutrition and healthy eating habits. Consume a variety of foods every day focusing on fruits, vegetables and lean meats). Eat foods low in fat, saturated fat and cholesterol. Eat a limited amount of salt and sodium. Drink adequate amounts of water and limit sugary drinks. Exercise portion control in meal selection. Establish a mindset of a wellness approach to health. Thank you for allowing me to provide your care today. I look forward to seeing you again and maintaining your health. Gibson Kelly APRN.ALESSANDRO MANRIQUE documented in this encounter [facility] 07-23-2024 Note HNO ID: [id number] Author: LUCY HARDY LPN Service: ? Author Type: LICENSED NURSE Type: Progress Notes Filed: 07/23/2024 13:46 Note Text: Verified name and date of . CC Post Void Residual HPI: Nikita tabvidhi is here now for an appointment with Leticia Arreaga APRN, DNP Procedure: Explained procedure to patient and verbalizes understanding. Performed a PVR. Patient urinated and instructed to empty bladder as much as possible just prior to having PVR done using bladder ultrasound scanner. Results of scan: 0 mL The patient tolerated the procedure well. Plan: Appointment with Gibson. [facility] 07-23-2024 History of Present illness Narrative Verified name and date of . CC Post Void Residual HPI: Nikita person is here now for an appointment with Leticia Arreaga APRN, ALESSANDRO Procedure: Explained procedure to patient and verbalizes understanding. Performed a PVR. Patient urinated and instructed to empty bladder as much as possible just prior to having PVR done using bladder ultrasound scanner. Results of scan: 0 mL The patient tolerated the procedure well. Plan: Appointment with Gibson. [facility] - [facility] Referring provider: Magi Borden MD New patient to Urology 07/23/[address] Alen Rodriguez [address] [facility] [address] for an opinion regarding urinary urgency and my final recommendations will be communicated back to the requesting physician by way of shared Medical record or letter via US mail. Chief Complaint Patient presents with: Consult Urinary Frequency Urinary Incontinence HPI Jenifer Castro is a 69 year old female who presents here today for a several day history of urinary symptoms. This is an established patient of Dr. Magi Borden MD. This is a new patient to me. Past med hx: Umesh, urinary urgency, smoker Seen at in [place] for UTI symptoms. Had dysuria and frequency. History of 2 UTIs recently. Was on Cipro and Bactrim. completed and was negative. No Followed by Dr. Jazlyn Cai at [facility] for Umesh. Wants a second opinion regarding her rUTIs. No records from her office or in [place]. Reports: Denies any current dysuria, burning, urgency, and frequency. No blood in the urine. No fever or chills. Denies suprapubic pain or flank pain. Past medical history, appointments, medications, allergies reviewed 07/23/2024 Previous Medical History PAST MEDICAL HISTORY Diagnosis Date Cystocele, unspecified Disorder of bone density and structure, unspecified Diverticulitis Facial eczema History of skin cancer Intermittent tremor Numbness and tingling sensation of skin Seasonal allergies Urinary frequency 06/19/2024 Previous Surgical History PAST SURGICAL HISTORY Procedure Laterality Date PAST SURGICAL HISTORY OF states she has had three surgeries but uncertain of what she had done. Family History FAMILY HISTORY Problem Relation Age of Onset Uterine Cancer Mother Diabetes Mother other (Heart condition) Mother Heart Attack Mother Lung Cancer Father No Known Problems Sister No Known Problems Sister Skin Cancer Brother No Known Problems Maternal Grandmother No Known Problems Maternal Grandfather No Known Problems Paternal Grandmother No Known Problems Paternal Grandfather Patient Allergies ALLERGIES No Known Allergies Current Medications Current Outpatient Medications on File Prior to Visit Medication Sig trimethoprim (PROLOPRIM) 100 mg tablet Take 100 mg by mouth daily at bedtime. (Patient not taking: Reported on 06/19/2024) phenazopyridine (PYRIDIUM) 200 mg tablet Take 200 mg by mouth three times a day as needed. predniSONE (DELTASONE) 10 mg tablet Take 4 tablets by mouth as a single dose days 1-3, 2 tablets days 4-6, and 1 tablet days 7-9. (Patient not taking: Reported on 06/19/2024) lidocaine (LIDODERM) 5 % Apply 1 Patch as directed every 24 hours. escitalopram oxalate (LEXAPRO) 10 mg tablet Take 10 mg by mouth once daily. busPIRone HCl 30 mg tablet Take 30 mg by mouth twice daily. No current facility-administered medications on file prior to visit. Social History Social History Tobacco Use Smoking status: Every Day Types: Cigarettes Smokeless tobacco: Never Vaping Use Vaping status: Never Used Substance Use Topics Alcohol use: Yes Alcohol/week: 3.0 standard drinks of alcohol Types: 2 Glasses of wine, 1 Cans of beer per week Drug use: Never LABS: Latest Ref Rng 08/18/2021 02/13/2022 05/25/2022 06/19/2024 GLUCOSE UA (POCT) Negative mg/dL Negative 250 ! Negative Negative BILIRUBIN UA (POCT) Negative Negative Large ! Small ! Negative KETONE UA (POCT) Negative mg/dL Negative 40 ! 15 ! Negative SPECIFIC GRAVITY UA (POCT) 1.005 - 1.030 1.015 1.015 >=1.030 1.010 HEMOGLOBIN/BLOOD UA (POCT) Negative Large ! Large ! Large ! Small ! PH UA (POCT) 4.5 - 8.0 6.5 6.0 6.0 7.0 PROTEIN UA (POCT) Negative mg/dL Negative >=300 ! >=300 ! Trace ! UROBILINOGEN UA (POCT) Normal E.U./dL 0.2 >=8.0 ! 1.0 0.2 NITRITE UA (POCT) Negative Negative Positive ! Positive ! Positive ! LEUKOCYTES UA (POCT) Negative Small ! Large ! Small ! Moderate ! COLOR UA (POCT) Yellow Dahlgren Dark yellow Dahlgren CLARITY UA (POCT) Clear Cloudy Cloudy Cloudy Specimen Request Specimen received in preservative Culture <10,000 CFU/ml No growth (<1,000 CFU/ml) 10,000 -<50,000 CFU/ml Escherichia coli ! No growth (<1,000 CFU/ml) IMAGING: Review of Symptoms GENERAL: No weight loss, malaise fatigue or fevers. GI: No nausea, vomiting, or diarrhea. No abdominal pain : + for burning, dysuria, urgency or frequency. No blood in urine MUSCULOSKELETAL: Negative for generalized joint pain or bodyaches SKIN: Negative for rash EXAM: BP 128/76 (BP Site: Right Arm, BP Position: Sitting, BP Cuff Size: Regular Adult) Pulse 100 Temp 36.9 C (98.4 F) (Temporal) Resp 14 Ht 162.6 cm (5' 4) Wt 51.7 kg (114 lb) SpO2 95% BMI 19.57 kg/m General Appearance: Well appearing, alert, in no acute distress, well-hydrated, well nourished. Skin: Skin color, texture, turgor normal, no suspicious rashes or lesions. Head: Normocephalic Extremities: No deformities, edema, skin discoloration Psych: Attitude - cooperative, easily engaged in conversation Appearance - normal hygiene and grooming appropriate Affect - euthymic, normal mood Mental status: Alert, attentive. Gait/Stance: Posture is normal. Gait is steady Health Maintenance List Depression Screening Never done Anxiety Screening Never done Hepatitis C Screening Never done DTaP,Tdap,Td Vaccine(1 - Tdap) due on 08/16/1995 Lipid Screening Never done Diabetes Screening Never done Colorectal Cancer Screening Never done Mammogram Screening due on 02/18/2010 Shingrix Vaccine(2 of 3) due on 07/23/2015 Bone Density Screening Never done Pneumococcal Vaccine: 65+(3 of 3 - PPSV23 or PCV20) due on 05/09/2023 Advance Directive Discussion Never done Influenza Vaccine(1) due on 04/15/2024 Covid-19 Vaccine( season) due on 04/15/2024 RSV Vaccine Completed Data reviewed Last 5 Encounter BP Readings: Date: BP: 06/19/2024 112/66 04/25/2024 148/82 11/30/2022 128/80 05/25/2022 118/68 02/13/2022 164/96 BMI Readings from Last 5 Encounters: 07/23/24 : 19.57 kg/m Last 5 Encounter Wt Readings: Date: Wt: 06/19/2024 52.3 kg (115 lb 4.8 oz) 04/25/2024 52.2 kg (115 lb 1.3 oz) 11/30/2022 51.3 kg (113 lb 3.2 oz) 05/25/2022 52.2 kg (115 lb) 02/13/2022 52.2 kg (115 lb) Medication and allergy list reviewed, reconciled and updated 07/23/2024 ASSESSMENT/PLAN: 1. Urinary frequency - ICD9: 788.41, ICD10: R35.0 (primary diagnosis) 69y/o female who is a patient of Dr. Jazlyn Cai here in [place] who is UroGYN. Wants a second opinion on her Umesh. No current antibiotics. Last UTI 2-3 months ago and was treated with a course of antibiotics. No records on file or in [facility]. UA trace bld - send for UA micro PVR = 0ml Plan: Obtain records from UroGYN office. - Daily Probiotic (Over the Counter) take at noon/lunchtime (Align brand) - Daily cranberry extract (Over the counter in a capsule or powder form) - Avoid constipation - Drink at least 64oz water per day. - Toilet every 2 hours to keep bladder empty Avoid bladder irritants - coffee, tea, cola drinks, chocolate, alcohol, artificial sweeteners and cigarettes Follow up with Gibson Kelly APRN.CLUB STEWARD, DNP in 6 month - POST VOID RESIDUAL - UA DIP, URINE (POC) - URINALYSIS, WITH MICROSCOPIC 2. Recurrent UTI (urinary tract infection) - ICD9: 599.0, ICD10: N39.0 Plan as above I spent a total of 32 minutes on the date of the service which included preparing to see the patient, [id number] patient care, completing clinical documentation, performing a medically appropriate examination, counseling and educating the patient/family/caregiver and ordering medications, tests, or procedures. Gibson Kelly DNP, CNP Department of Urology [facility] documented in this encounter [facility] 07-23-2024 Note HNO ID: [id number] Author: GIBSON KELLY APRN.ALESSANDRO MANRIQUE Service: ? Author Type: Nurse Practitioner Type: Progress Notes Filed: 07/23/2024 13:46 Note Text: [facility] - [facility] Referring provider: Magi Borden MD New patient to Urology 07/23/[address] Alen Rodriguez [address] [facility] [id number] for an opinion regarding urinary urgency and my final recommendations will be communicated back to the requesting physician by way of shared Medical record or letter via US mail. Chief Complaint Patient presents with: Consult Urinary Frequency Urinary Incontinence HPI Jenifer Castro is a 69 year old female who presents here today for a several day history of urinary symptoms. This is an established patient of Dr. Magi Borden MD. This is a new patient to me. Past med hx: Umesh, urinary urgency, smoker Seen at in [place] for UTI symptoms. Had dysuria and frequency. History of 2 UTIs recently. Was on Cipro and Bactrim. completed and was negative. No Followed by Dr. Jazlyn Cai at [facility] for Umesh. Wants a second opinion regarding her rUTIs. No records from her office or in [place]. Reports: Denies any current dysuria, burning, urgency, and frequency. No blood in the urine. No fever or chills. Denies suprapubic pain or flank pain. Past medical history, appointments, medications, allergies reviewed 07/23/2024 Previous Medical History PAST MEDICAL HISTORY Diagnosis Date Cystocele, unspecified Disorder of bone density and structure, unspecified Diverticulitis Facial eczema History of skin cancer Intermittent tremor Numbness and tingling sensation of skin Seasonal allergies Urinary frequency 06/19/2024 Previous Surgical History PAST SURGICAL HISTORY Procedure Laterality Date PAST SURGICAL HISTORY OF states she has had three surgeries but uncertain of what she had done. Family History FAMILY HISTORY Problem Relation Age of Onset Uterine Cancer Mother Diabetes Mother other (Heart condition) Mother Heart Attack Mother Lung Cancer Father No Known Problems Sister No Known Problems Sister Skin Cancer Brother No Known Problems Maternal Grandmother No Known Problems Maternal Grandfather No Known Problems Paternal Grandmother No Known Problems Paternal Grandfather Patient Allergies ALLERGIES No Known Allergies Current Medications Current Outpatient Medications on File Prior to Visit Medication Sig trimethoprim (PROLOPRIM) 100 mg tablet Take 100 mg by mouth daily at bedtime. (Patient not taking: Reported on 06/19/2024) phenazopyridine (PYRIDIUM) 200 mg tablet Take 200 mg by mouth three times a day as needed. predniSONE (DELTASONE) 10 mg tablet Take 4 tablets by mouth as a single dose days 1-3, 2 tablets days 4-6, and 1 tablet days 7-9. (Patient not taking: Reported on 06/19/2024) lidocaine (LIDODERM) 5 % Apply 1 Patch as directed every 24 hours. escitalopram oxalate (LEXAPRO) 10 mg tablet Take 10 mg by mouth once daily. busPIRone HCl 30 mg tablet Take 30 mg by mouth twice daily. No current facility-administered medications on file prior to visit. Social History Social History Tobacco Use Smoking status: Every Day Types: Cigarettes Smokeless tobacco: Never Vaping Use Vaping status: Never Used Substance Use Topics Alcohol use: Yes Alcohol/week: 3.0 standard drinks of alcohol Types: 2 Glasses of wine, 1 Cans of beer per week Drug use: Never LABS: Latest Ref Rng 08/18/2021 02/13/2022 05/25/2022 06/19/2024 GLUCOSE UA (POCT) Negative mg/dL Negative 250 ! Negative Negative BILIRUBIN UA (POCT) Negative Negative Large ! Small ! Negative KETONE UA (POCT) Negative mg/dL Negative 40 ! 15 ! Negative SPECIFIC GRAVITY UA (POCT) 1.005 - 1.030 1.015 1.015 >=1.030 1.010 HEMOGLOBIN/BLOOD UA (POCT) Negative Large ! Large ! Large ! Small ! PH UA (POCT) 4.5 - 8.0 6.5 6.0 6.0 7.0 PROTEIN UA (POCT) Negative mg/dL Negative >=300 ! >=300 ! Trace ! UROBILINOGEN UA (POCT) Normal E.U./dL 0.2 >=8.0 ! 1.0 0.2 NITRITE UA (POCT) Negative Negative Positive ! Positive ! Positive ! LEUKOCYTES UA (POCT) Negative Small ! Large ! Small ! Moderate ! COLOR UA (POCT) Yellow Dahlgren Dark yellow Dahlgren CLARITY UA (POCT) Clear Cloudy Cloudy Cloudy Specimen Request Specimen received in preservative Culture <10,000 CFU/ml? No growth (<1,000 CFU/ml) 10,000 -<50,000 CFU/ml Escherichia coli ! No growth (<1,000 CFU/ml) IMAGING: Review of Symptoms GENERAL: No weight loss, malaise fatigue or fevers. GI: No nausea, vomiting, or diarrhea. No abdominal pain : + for burning, dysuria, urgency or frequency. No blood in urine MUSCULOSKELETAL: Negative for generalized joint pain or bodyaches SKIN: Negative for rash EXAM: BP 128/76 (BP Site: Right Arm, BP Position: Sitting, BP Cuff Size: Regular Adult) Pulse 100 Temp 36.9 ?C (98.4 ?F) (Temporal) Resp 14 Ht 162.6 cm (5' 4) Wt 51.7 kg (114 lb) Sp (more content not included)... [facility] 06-21-2024 Telephone encounter Note Spoke with patient, notified of results as listed below. Patient states she saw her primary care doctor today who did another urine culture and put her on Cefdinir in place of the Keflex that was prescribed at . Reinforced that she can stop taking the Keflex and to follow up with Urology due to continued and persistent symptoms, and she states she plans to do so. Louis Li MA [facility] 06-21-2024 Miscellaneous Notes Spoke with patient, notified of results as listed below. Patient states she saw her primary care doctor today who did another urine culture and put her on Cefdinir in place of the Keflex that was prescribed at . Reinforced that she can stop taking the Keflex and to follow up with Urology due to continued and persistent symptoms, and she states she plans to do so. Louis Li MA Please call and let patient know her urine culture was negative, she can discontinue antibiotics. Would recommend follow-up with PCP or urology. documented in this encounter [facility] 06-21-2024 Telephone encounter Note Please call and let patient know her urine culture was negative, she can discontinue antibiotics. Would recommend follow-up with PCP or urology. [facility] Work Phone: 06-19-2024 Note HNO ID: [id number] Author: ALEN RODRIGUEZ APRN.CLUB STEWARD Service: ? Author Type: Nurse Practitioner Type: Progress Notes Filed: 06/19/2024 16:19 Note Text: Subjective HPI Nontoxic-appearing female presents urgent care chief plaint possible UTI. Duration of symptoms 2 weeks. Associated symptoms dysuria frequency. History of 2 UTIs recently. Was on Cipro and Bactrim. Presents today for evaluation. States feeling poorly today. Did vomit a few days ago. No vomiting today. Does have some back pain. This is typical with UTIs. Denies any vomiting fevers abdominal pain currently. Past medical history prescription medications allergies reviewed. .Patient presents with: Urinary Frequency: x 2 weeks, treated 06/05 with bactrim, 05/01 with cipro No past medical history on file. No past surgical history on file. ALLERGIES Patient has no known allergies. MEDICATIONS lidocaine (LIDODERM) 5 % Apply 1 Patch as directed every 24 hours. escitalopram oxalate (LEXAPRO) 10 mg tablet Take 10 mg by mouth once daily. busPIRone HCl 30 mg tablet Take 30 mg by mouth twice daily. trimethoprim (PROLOPRIM) 100 mg tablet Take 100 mg by mouth daily at bedtime. (Patient not taking: Reported on 06/19/2024) phenazopyridine (PYRIDIUM) 200 mg tablet Take 200 mg by mouth three times a day as needed. predniSONE (DELTASONE) 10 mg tablet Take 4 tablets by mouth as a single dose days 1-3, 2 tablets days 4-6, and 1 tablet days 7-9. (Patient not taking: Reported on 06/19/2024) No family history on file. Social History Tobacco Use Smoking status: Every Day Smokeless tobacco: Never BP 112/66 Pulse 78 Temp 37.1 ?C (98.7 ?F) Resp 16 Wt 52.3 kg (115 lb 4.8 oz) SpO2 97% Review of Systems Constitutional: Negative for chills, fever and malaise/fatigue. Cardiovascular: Negative for chest pain. Gastrointestinal: Negative for abdominal pain, constipation, diarrhea, nausea and vomiting. Genitourinary: Positive for dysuria and frequency. Negative for flank pain, hematuria and urgency. Musculoskeletal: Negative for myalgias. Objective Physical Exam Vitals and nursing note reviewed. Constitutional: General: She is not in acute distress. Appearance: She is not diaphoretic. HENT: Head: Jaw: No trismus. Right Ear: Hearing normal. No decreased hearing noted. No drainage, swelling or tenderness. Tympanic membrane is not perforated, erythematous or bulging. Left Ear: Hearing normal. No decreased hearing noted. No drainage, swelling or tenderness. Tympanic membrane is not perforated, erythematous or bulging. Mouth/Throat: Pharynx: Uvula midline. No uvula swelling. Tonsils: No tonsillar abscesses. Cardiovascular: Rate and Rhythm: Normal rate and regular rhythm. Pulses: Normal pulses. Pulmonary: Effort: Pulmonary effort is normal. No respiratory distress. Breath sounds: Normal breath sounds. Chest: Chest wall: No tenderness. Abdominal: General: Bowel sounds are normal. There is no distension. Palpations: Abdomen is soft. Abdomen is not rigid. Tenderness: There is no abdominal tenderness. There is left CVA tenderness. There is no right CVA tenderness, guarding or rebound. Negative signs include Ardon's sign and McBurney's sign. Comments: Mild Musculoskeletal: General: No tenderness. Lymphadenopathy: Head: Right side of head: No submental, submandibular, tonsillar, preauricular, posterior auricular or occipital adenopathy. Left side of head: No submental, submandibular, tonsillar, preauricular, posterior auricular or occipital adenopathy. Cervical: Right cervical: No superficial or posterior cervical adenopathy. Left cervical: No superficial or posterior cervical adenopathy. Skin: General: Skin is warm and dry. Findings: No rash. Neurological: Mental Status: She is alert and oriented to person, place, and time. ASSESSMENT/PLAN: 1. Urinary frequency - ICD9: 788.41, ICD10: R35.0 (primary diagnosis) - UA DIP, URINE (POC) - URINE CULTURE - CONSULT TO UROLOGY 2. Recurrent UTI (urinary tract infection) - ICD9: 599.0, ICD10: N39.0 Nontoxic-appearing. Hemodynamically stable. Diagnosed with recurrent UTI. Positive for leukocytes nitrites. Referred to urology due to frequent UTIs. Will place on Keflex today. Culture pending. Treating quarterly and culture results. Red flags ER evaluation discussed. Patient was educated on supportive therapies. Patient will follow up with primary care provider as needed. Patient was instructed to immediately proceed to emergency room for any new, worsening, or symptoms lasting longer than anticipated. The patient's clinical presentation is otherwise unremarkable at this time. Based on exam and clinical finding, the patient is stable for discharge. Plan of care was discussed with patient. Patient verbalizes understanding and agrees to plan of care. This note was generated using Genoom software. It may contain errors in wording, pu (more content not included)... [facility] 06-19-2024 History of Present illness Narrative Subjective HPI Nontoxic-appearing female presents urgent care chief plaint possible UTI. Duration of symptoms 2 weeks. Associated symptoms dysuria frequency. History of 2 UTIs recently. Was on Cipro and Bactrim. Presents today for evaluation. States feeling poorly today. Did vomit a few days ago. No vomiting today. Does have some back pain. This is typical with UTIs. Denies any vomiting fevers abdominal pain currently. Past medical history prescription medications allergies reviewed. .Patient presents with: Urinary Frequency: x 2 weeks, treated 06/05 with bactrim, 05/01 with cipro No past medical history on file. No past surgical history on file. ALLERGIES Patient has no known allergies. MEDICATIONS lidocaine (LIDODERM) 5 % Apply 1 Patch as directed every 24 hours. escitalopram oxalate (LEXAPRO) 10 mg tablet Take 10 mg by mouth once daily. busPIRone HCl 30 mg tablet Take 30 mg by mouth twice daily. trimethoprim (PROLOPRIM) 100 mg tablet Take 100 mg by mouth daily at bedtime. (Patient not taking: Reported on 06/19/2024) phenazopyridine (PYRIDIUM) 200 mg tablet Take 200 mg by mouth three times a day as needed. predniSONE (DELTASONE) 10 mg tablet Take 4 tablets by mouth as a single dose days 1-3, 2 tablets days 4-6, and 1 tablet days 7-9. (Patient not taking: Reported on 06/19/2024) No family history on file. Social History Tobacco Use Smoking status: Every Day Smokeless tobacco: Never BP 112/66 Pulse 78 Temp 37.1 C (98.7 F) Resp 16 Wt 52.3 kg (115 lb 4.8 oz) SpO2 97% Review of Systems Constitutional: Negative for chills, fever and malaise/fatigue. Cardiovascular: Negative for chest pain. Gastrointestinal: Negative for abdominal pain, constipation, diarrhea, nausea and vomiting. Genitourinary: Positive for dysuria and frequency. Negative for flank pain, hematuria and urgency. Musculoskeletal: Negative for myalgias. Objective Physical Exam Vitals and nursing note reviewed. Constitutional: General: She is not in acute distress. Appearance: She is not diaphoretic. HENT: Head: Jaw: No trismus. Right Ear: Hearing normal. No decreased hearing noted. No drainage, swelling or tenderness. Tympanic membrane is not perforated, erythematous or bulging. Left Ear: Hearing normal. No decreased hearing noted. No drainage, swelling or tenderness. Tympanic membrane is not perforated, erythematous or bulging. Mouth/Throat: Pharynx: Uvula midline. No uvula swelling. Tonsils: No tonsillar abscesses. Cardiovascular: Rate and Rhythm: Normal rate and regular rhythm. Pulses: Normal pulses. Pulmonary: Effort: Pulmonary effort is normal. No respiratory distress. Breath sounds: Normal breath sounds. Chest: Chest wall: No tenderness. Abdominal: General: Bowel sounds are normal. There is no distension. Palpations: Abdomen is soft. Abdomen is not rigid. Tenderness: There is no abdominal tenderness. There is left CVA tenderness. There is no right CVA tenderness, guarding or rebound. Negative signs include Ardon's sign and McBurney's sign. Comments: Mild Musculoskeletal: General: No tenderness. Lymphadenopathy: Head: Right side of head: No submental, submandibular, tonsillar, preauricular, posterior auricular or occipital adenopathy. Left side of head: No submental, submandibular, tonsillar, preauricular, posterior auricular or occipital adenopathy. Cervical: Right cervical: No superficial or posterior cervical adenopathy. Left cervical: No superficial or posterior cervical adenopathy. Skin: General: Skin is warm and dry. Findings: No rash. Neurological: Mental Status: She is alert and oriented to person, place, and time. ASSESSMENT/PLAN: 1. Urinary frequency - ICD9: 788.41, ICD10: R35.0 (primary diagnosis) - UA DIP, URINE (POC) - URINE CULTURE - CONSULT TO UROLOGY 2. Recurrent UTI (urinary tract infection) - ICD9: 599.0, ICD10: N39.0 Nontoxic-appearing. Hemodynamically stable. Diagnosed with recurrent UTI. Positive for leukocytes nitrites. Referred to urology due to frequent UTIs. Will place on Keflex today. Culture pending. Treating quarterly and culture results. Red flags ER evaluation discussed. Patient was educated on supportive therapies. Patient will follow up with primary care provider as needed. Patient was instructed to immediately proceed to emergency room for any new, worsening, or symptoms lasting longer than anticipated. The patient's clinical presentation is otherwise unremarkable at this time. Based on exam and clinical finding, the patient is stable for discharge. Plan of care was discussed with patient. Patient verbalizes understanding and agrees to plan of care. This note was generated using Genoom software. It may contain errors in wording, punctuation, or spelling. Alen Rodriguez APRN.HILARIA documented in this encounter [facility] 04-25-2024 Telephone encounter Note We do not do prior authorizations. Thank you. [facility] Work Phone: 04-25-2024 Note HNO ID: [id number] Author: DARIN MCFADDEN APRN.CLUB STEWARD Service: ? Author Type: Nurse Practitioner Type: Progress Notes Filed: 04/25/2024 11:47 Note Text: Patient presents with: Pain, Back: RIGHT side radiates down buttock x 2.5 days; currently being treated for UTI SUBJECTIVE: Jenifer Castro is a 69 year old year old female who presents for the past 2 days with symptoms that are:gradually worsening. Right sided low back pain No known injury Began after carrying laundry up and down her basement stairs Taking Aleve without relief Denies weakness, tingling, numbness, loss of bowel/bladder function Risk factors: none Social History Tobacco Use Smoking status: Every Day Smokeless tobacco: Never No past medical history on file. 04/25/24 1132 BP: 148/82 Pulse: 79 Resp: 16 Temp: 36.6 ?C (97.9 ?F) TempSrc: Left Tympanic SpO2: 96% Weight: 52.2 kg (115 lb 1.3 oz) ALLERGIES No Known Allergies Medications: trimethoprim (PROLOPRIM) 100 mg tablet Take 100 mg by mouth daily at bedtime. phenazopyridine (PYRIDIUM) 200 mg tablet Take 200 mg by mouth three times a day as needed. escitalopram oxalate (LEXAPRO) 10 mg tablet Take 10 mg by mouth once daily. busPIRone HCl 30 mg tablet Take 30 mg by mouth twice daily. predniSONE (DELTASONE) 10 mg tablet Take 4 tablets by mouth as a single dose days 1-3, 2 tablets days 4-6, and 1 tablet days 7-9. lidocaine (LIDODERM) 5 % Apply 1 Patch as directed every 24 hours. Review of Systems Constitutional: Negative for chills, fever and malaise/fatigue. Respiratory: Negative for shortness of breath. Cardiovascular: Negative for leg swelling. Musculoskeletal: Positive for back pain. Negative for falls. Neurological: Negative for dizziness and headaches. Physical Exam Vitals and nursing note reviewed. Constitutional: Appearance: Normal appearance. She is not ill-appearing. HENT: Head: Normocephalic. Cardiovascular: Rate and Rhythm: Normal rate and regular rhythm. Pulmonary: Effort: Pulmonary effort is normal. Musculoskeletal: Cervical back: Normal. Thoracic back: Normal. Lumbar back: Spasms and tenderness present. Negative right straight leg raise test and negative left straight leg raise test. Back: Skin: General: Skin is warm and dry. Neurological: General: No focal deficit present. Mental Status: She is alert. Psychiatric: Mood and Affect: Mood normal. Behavior: Behavior normal. ASSESSMENT/PLAN: 1. Acute right-sided low back pain without sciatica - ICD9: 724.2, ICD10: M54.50 Prednisone taper as prescribed Tylenol per package instructions Warm, moist heat See PCP if no improvement in 2-3 days - LIDOCAINE 5 % TOPICAL PATCH Darin Mcfadden [facility] 04-25-2024 History of Present illness Narrative Images from the original note were not included. Patient presents with: Pain, Back: RIGHT side radiates down buttock x 2.5 days; currently being treated for UTI SUBJECTIVE: Jenifer Castro is a 69 year old year old female who presents for the past 2 days with symptoms that are:gradually worsening. Right sided low back pain No known injury Began after carrying laundry up and down her basement stairs Taking Aleve without relief Denies weakness, tingling, numbness, loss of bowel/bladder function Risk factors: none Social History Tobacco Use Smoking status: Every Day Smokeless tobacco: Never No past medical history on file. 04/25/24 1132 BP: 148/82 Pulse: 79 Resp: 16 Temp: 36.6 C (97.9 F) TempSrc: Left Tympanic SpO2: 96% Weight: 52.2 kg (115 lb 1.3 oz) ALLERGIES No Known Allergies Medications: trimethoprim (PROLOPRIM) 100 mg tablet Take 100 mg by mouth daily at bedtime. phenazopyridine (PYRIDIUM) 200 mg tablet Take 200 mg by mouth three times a day as needed. escitalopram oxalate (LEXAPRO) 10 mg tablet Take 10 mg by mouth once daily. busPIRone HCl 30 mg tablet Take 30 mg by mouth twice daily. predniSONE (DELTASONE) 10 mg tablet Take 4 tablets by mouth as a single dose days 1-3, 2 tablets days 4-6, and 1 tablet days 7-9. lidocaine (LIDODERM) 5 % Apply 1 Patch as directed every 24 hours. Review of Systems Constitutional: Negative for chills, fever and malaise/fatigue. Respiratory: Negative for shortness of breath. Cardiovascular: Negative for leg swelling. Musculoskeletal: Positive for back pain. Negative for falls. Neurological: Negative for dizziness and headaches. Physical Exam Vitals and nursing note reviewed. Constitutional: Appearance: Normal appearance. She is not ill-appearing. HENT: Head: Normocephalic. Cardiovascular: Rate and Rhythm: Normal rate and regular rhythm. Pulmonary: Effort: Pulmonary effort is normal. Musculoskeletal: Cervical back: Normal. Thoracic back: Normal. Lumbar back: Spasms and tenderness present. Negative right straight leg raise test and negative left straight leg raise test. Back: Skin: General: Skin is warm and dry. Neurological: General: No focal deficit present. Mental Status: She is alert. Psychiatric: Mood and Affect: Mood normal. Behavior: Behavior normal. ASSESSMENT/PLAN: 1. Acute right-sided low back pain without sciatica - ICD9: 724.2, ICD10: M54.50 Prednisone taper as prescribed Tylenol per package instructions Warm, moist heat See PCP if no improvement in 2-3 days - LIDOCAINE 5 % TOPICAL PATCH Darin Mcfadden documented in this encounter [facility] 04-25-2024 Miscellaneous Notes We do not do prior authorizations. Thank you. documented in this encounter [facility] 04-25-2024 Instructions Darin Mcfadden APRN.CNP - 04/25/2024 11:42 AM EDT Low Back Pain Low back pain is pain and stiffness in the small of the back. With low back pain, pain may also occur in the buttocks or legs. Simple exercises and good posture can help most cases of low back pain. In a few cases, medications, physical therapy or surgery may be needed. The spine is made up of ring-like bones called vertebrae. The vertebrae are stacked on top of each other and form a strong column that keeps the head and body standing up. Between each vertebra is a jelly-like disk that has a tough outside edge. These disks are like cushions between the vertebrae. Muscles and tissues hold vertebrae in the right place. The lower back consists of five vertebrae. These vertebrae make up the inward curve of the lower back. What causes low back pain? The most common cause of low back pain is overstretched or injured muscles that support the lower back. Muscles and connective tissues can become hurt from lifting or carrying heavy objects incorrectly. Muscles in the back can also become weak from a lack of exercise. Exercises to make the muscles in the back and abdomen strong can lessen pain. Low back pain can also be caused by: Bad posture Standing or sitting in the same place for a long time Slipped disk; a slipped disk is when a disk between vertebrae bulges past the bones and presses against a nerve. Being very overweight Osteoporosis (thinning of bone) Osteoarthritis, which is the break down of tissues or bones of the joint Fibromyalgia, which is an illness that causes achy, tender muscles; the person with fibromyalgia may also sleep poorly, have headaches, and often feel tired Serious illnesses such as cancer, infection, or another illness can cause low back pain, but this is rare How is low back pain treated? Many times, low back pain can be helped by exercise and keeping good posture while sitting, standing, and sleeping. You can also learn ways to protect your back when bending, lifting, and exercising. People who are overweight might lessen low back pain by losing weight. What can I do if I have low back pain? 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 While working in the kitchen, open the cabinet under the sink and rest your foot on the inside of the cabinet. Change feet every 5 to 15 minutes. Keep good posture by standing with your head up, shoulders straight, chest forward, weight balanced evenly on both feet, and hips tucked in. Sitting Make sure your chair has good lower back support. The back of the chair should be curved to give support where the small of the back meets the chair. Keep your knees a little higher than your hips by using a foot rest or stool. Don't twist at the waist while sitting. Instead, turn your whole body. Sleeping Sleep on your side with your knees bent. You can also put a pillow between your knees. Try not to sleep on your stomach. If you sleep on your back, put pillows under your knees and a small pillow under the small of your back. Lifting objects Before you lift a heavy object, get a firm footing. Bend your knees to lower yourself to the level of the object, keeping your lower back straight. Tighten your stomach muscles and lift the object using your leg muscles. Don't jerk the object up to your body. Never bend from the waist with your knees straight. If you are lifting an object from a table, slide it to the edge of the table so that you can hold it close to your body. Bend your knees so that you are close to the object. Use your legs to lift the object and come to a standing position. Avoid lifting heavy objects above waist level. Hold packages close to your body with your arms bent. References National [place] [employer] and Stroke. Low Back Pain Fact Sheet. Accessed 12/05/2012 [employer]. Low Back Pain. Accessed 12/05/2012 [employer]. Back Pain Facts & Statistics. Accessed 12/05/2012 Graciela [place], Timothy S, Amilcar RS. Back pain made simple: an approach based on principles and evidence. [place] Clin J Med. 2009;[id number] documented in this encounter [facility] 04-28-2023 Procedure note [facility] 04-19-2023 Evaluation + Plan note Future Scheduled TestsThyroid Stimulating Hormone 04/19/23Complete Blood Count 04/19/23Lipid Profile 04/19/23Hepatitis C Antibody IgG 04/19/23Complete Metabolic Panel 04/19/23 [facility] 04-07-2023 Procedure note [facility] 03-01-2023 Note ORIGINAL EXAMINATION: LOW DOSE SCREENING CT OF THE CHEST WITHOUT CONTRAST03/01/2023 2:37 pm TECHNIQUE: Low dose lung cancer screening CT of the chest was performed without the administration of intravenous contrast. Multiplanar reformatted images are provided for review. Automated exposure control, iterative reconstruction, and/or weight based adjustment of the mA/kV was utilized to reduce the radiation dose to as low as reasonably achievable. COMPARISON: None. HISTORY: 20+ pack-year smoking history FINDINGS: The heart is normal in size. Atherosclerosis seen of the coronary arteries and aorta. The great vessels appear normal in caliber. No lymphadenopathy is visible on this unenhanced exam. No suspicious findings seen in the visualized portion of the abdomen. The abdomen is not evaluated in detail. Fluid density cysts noted in the kidneys. On the right, the largest lesion is 4.7 cm and 9 Hounsfield units. Small hiatal hernia noted. No pulmonary consolidation is identified. No pneumothorax or pleural effusion.Upper lung predominant emphysema visualized. Tiny 2 mm left upper lobe nodule seen on image 18. There is a 2-3 mm left upper lobe nodule on image 24. Dependent atelectasis noted. Mild bronchiectasis seen. Tiny right upper lobe nodule on image 23 measures less than 3 mm. No aggressive osseous lesions visible. Degenerative changes seen in the spine. IMPRESSION: Small lung nodules. For patients with appropriate lung cancer risk, annual CT screening is recommended. Atherosclerosis with coronary artery calcifications Emphysema Information below is for Lung nodule tracking purposes: Nodule: S3 Other Findings: P-CAC Change: Na Recall : 1yr scr Recall Type: LDCT LungRads: 2s Interpreted by: Juan Francisco Nicholas MD Preliminary Report By: Juan Francisco Nicholas MD Electronically signed By Juan Francisco Nicholas MD Dictated Date: 03/01/2023 3:48:24 PM Prelim Date: 03/01/2023 3:53:48 PM Sign Date: 03/01/2023 3:53:48 PM Ordering Provider: DENNIS RASHIDA [facility] 01-13-2023 Note . MICRO - Microbiology PROCEDURE: Urine Culture [*1] SOURCE: Urine, Clean Catch BODY SITE: COLLECTED DATE/TIME: 01/11/2023 16:25 EDT RECEIVED DATE/TIME: 01/11/2023 18:50 EDT START DATE/TIME: 01/11/2023 18:50 EDT FREE TEXT SOURCE: FINAL REPORTS Final Report [] Verified Date/Time/Personnel: 01/13/2023 08:12 EDT <10,000 cfu/ml. No Significant growth. Sensitivity not indicated. PRELIMINARY REPORTS Preliminary Report [] Verified Date/Time/Personnel: 01/12/2023 09:42 EDT No growth to date Performing Locations *1: This test was performed at: [facility], [address] [place] [address], [id number] , [facility] ([place]) 11-30-2022 History of Present illness Narrative Radiology Service Progress Note PATIENT NAME: Jenifer Castro DATE OF SERVICE: November 30, 2022 TIME: 1:06 PM PATIENT IDENTITY VERIFICATION COMPLETED USING TWO (2) IDENTIFIERS: Name and Date of confirmed by patient verbally. FALL SCREENING: Has the patient had 2 falls in the last year or 1 fall with injury or currently using an Ambulatory Assistive Device (Walker, Cane, Wheelchair, Crutches, etc.)? No PATIENT GENDER DATA: Female. status: : No status: NO. PATIENT RELEVANT IMPLANT DATA REVIEWED: Yes RADIOLOGY DEPARTMENT: General X-ray: Exam(s) Completed: Spine X-Ray(s): Thoracic PERIPHERAL IV DATA: Not applicable SIGNED BY: RT Juan(R) November 30, 2022 1:06 PM documented in this encounter [facility] 05-25-2022 History of Present illness Narrative This note was created using NoteWriter. Subjective Jenifer Castro is a 67 year old female. 67 year old female with PMH anxiety and depression presents with complaints of UTI. Acute onset 2 days ago +burning +frequency +urgency Denies flank pain. Denies vaginal bleeding. Denies vaginal discharge. Denies fever or chills Denies concerns for STI Denies recent sexual activity Utilized [employer] The history is provided by the patient. No speech language pathology assistant was used. UTI This is a new problem. The current episode started 2 days ago. The problem occurs every urination. The problem has been gradually worsening. The quality of the pain is described as burning. The pain is at a severity of 4/10. The pain is mild. There has been no fever. There is A history of pyelonephritis. Associated symptoms include chills, frequency and urgency. Pertinent negatives include no sweats, no nausea, no vomiting, no discharge, no hematuria, no hesitancy, no possible and no flank pain. Treatments tried: [employer]. Her past medical history is significant for recurrent UTIs. Her past medical history does not include kidney stones, single kidney, urological procedure, urinary stasis or catheterization. No past medical history on file. No past surgical history on file. ALLERGIES Patient has no known allergies. MEDICATIONS escitalopram oxalate (LEXAPRO) 10 mg tablet Take 10 mg by mouth once daily. busPIRone HCl 30 mg tablet Take 30 mg by mouth twice daily. nitrofurantoin monohydrate and macrocrystal (MACROBID) 100 mg capsule Take 1 capsule by mouth twice daily for 5 days. No family history on file. Social History Tobacco Use Smoking status: Every Day Smokeless tobacco: Never Review of Systems Constitutional: Positive for chills. Negative for fatigue and fever. Eyes: Negative for photophobia, pain, discharge, redness and itching. Respiratory: Negative for apnea, choking and chest tightness. Cardiovascular: Negative for chest pain, palpitations and leg swelling. Gastrointestinal: Negative for abdominal pain, nausea and vomiting. Genitourinary: Positive for dysuria, frequency and urgency. Negative for flank pain, hematuria and hesitancy. Musculoskeletal: Negative for arthralgias, back pain and gait problem. Skin: Negative for color change, pallor, rash and wound. Allergic/Immunologic: Negative for environmental allergies, food allergies and immunocompromised state. Neurological: Negative for dizziness, facial asymmetry, light-headedness and headaches. Hematological: Negative for adenopathy. Does not bruise/bleed easily. Psychiatric/Behavioral: Negative for agitation and behavioral problems. Objective BP 118/68 Pulse 106 Temp 36.7 C (98 F) Resp 16 Wt 52.2 kg (115 lb) SpO2 95% Physical Exam Vitals and nursing note reviewed. Constitutional: General: She is not in acute distress. Appearance: Normal appearance. She is normal weight. She is not ill-appearing, toxic-appearing or diaphoretic. HENT: Head: Normocephalic and atraumatic. Right Ear: Ear canal and external ear normal. Left Ear: Ear canal and external ear normal. Nose: Nose normal. No congestion or rhinorrhea. Mouth/Throat: Mouth: Mucous membranes are moist. Pharynx: No oropharyngeal exudate or posterior oropharyngeal erythema. Eyes: General: Right eye: No discharge. Left eye: No discharge. Extraocular Movements: Extraocular movements intact. Conjunctiva/sclera: Conjunctivae normal. Pupils: Pupils are equal, round, and reactive to light. Cardiovascular: Rate and Rhythm: Normal rate and regular rhythm. Pulses: Normal pulses. Heart sounds: Normal heart sounds. No murmur heard. No friction rub. Pulmonary: Effort: Pulmonary effort is normal. No respiratory distress. Breath sounds: Normal breath sounds. No stridor. No wheezing, rhonchi or rales. Chest: Chest wall: No tenderness. Abdominal: General: Abdomen is flat. There is no distension. Palpations: Abdomen is soft. There is no mass. Tenderness: There is no abdominal tenderness. There is no right CVA tenderness, left CVA tenderness, guarding or rebound. Hernia: No hernia is present. Musculoskeletal: General: No swelling, tenderness, deformity or signs of injury. Normal range of motion. Cervical back: Normal range of motion and neck supple. No rigidity. Right lower leg: No edema. Left lower leg: No edema. Lymphadenopathy: Cervical: No cervical adenopathy. Skin: General: Skin is warm and dry. Capillary Refill: Capillary refill takes less than 2 seconds. Coloration: Skin is not jaundiced or pale. Findings: No bruising, erythema, lesion or rash. Neurological: General: No focal deficit present. Mental Status: She is alert and oriented to person, place, and time. Cranial Nerves: No cranial nerve deficit. Sensory: No sensory deficit. Motor: No weakness. Coordination: Coordination normal. Gait: Gait normal. Psychiatric: Mood and Affect: Mood normal. Behavior: Behavior normal. Thought Content: Thought content normal. Judgment: Judgment normal. Assessment and Plan ASSESSMENT/PLAN: 1. Urinary frequency - ICD9: 788.41, ICD10: R35.0 acute - UA positive for savage esterase, hematuria, proteinuria, nitrates, and patient endorse she utilized [employer] - Send urine for culture - Begin treatment with Macrobid 100 mg BID for 5 days - Patient education for prevention given - UA DIP, URINE (POC) - URINE CULTURE - CONSULT TO UROLOGY at patient request as she states she has had multiple UTIs Ines Yates APRN.HILARIA documented in this encounter [facility] 03-29-2022 Note ORIGINAL EXAMINATION: BONE DENSITOMETRY03/29/2022 12:39 pm TECHNIQUE: Dual energy bone densitometry lumbar spine and left hip. COMPARISON: 06/18/2016 HISTORY: Reason for Exam: Osteoporosis Screening FINDINGS: Total bone mineral density of the L1-L4 is 1.158 grams per square centimeters, and T-score being 1.0, indicating that this patient has normal bone mineral density. BMD change: +9.5%. Bone mineral density of the left femoral neck is 0.900 grams per square centimeters, and T-score being 0.5, indicating that this patient has normal bone mineral density. Total bone mineral density of the left hip is 0.940 grams per square centimeters, and T-score being 0.0, indicating that this patient has normal bone mineral density. BMD change: -8.6%. IMPRESSION: Normal bone mineral density. Interpreted by: Alejandra Ma MD Preliminary Report By: Alejandra Ma MD Electronically signed By Alejandra Ma MD Dictated Date: 03/29/2022 3:05:35 PM Prelim Date: 03/29/2022 3:06:43 PM Sign Date: 03/29/2022 3:06:43 PM Ordering Provider: DENNIS RASHIDA [facility] 03-29-2022 Note ORIGINAL EXAMINATION: BONE DENSITOMETRY03/29/2022 12:39 pm TECHNIQUE: Dual energy bone densitometry lumbar spine and left hip. COMPARISON: 06/18/2016 HISTORY: Reason for Exam: Osteoporosis Screening FINDINGS: Total bone mineral density of the L1-L4 is 1.158 grams per square centimeters, and T-score being 1.0, indicating that this patient has normal bone mineral density. BMD change: +9.5%. Bone mineral density of the left femoral neck is 0.900 grams per square centimeters, and T-score being 0.5, indicating that this patient has normal bone mineral density. Total bone mineral density of the left hip is 0.940 grams per square centimeters, and T-score being 0.0, indicating that this patient has normal bone mineral density. BMD change: -8.6%. IMPRESSION: Normal bone mineral density. Interpreted by: Alejandra Ma MD Preliminary Report By: Alejandra Ma MD Electronically signed By Alejandra Ma MD Dictated Date: 03/29/2022 3:05:35 PM Prelim Date: 03/29/2022 3:06:43 PM Sign Date: 03/29/2022 3:06:43 PM Ordering Provider: DENNIS FIELD [facility] 03-03-2022 Evaluation + Plan note Future Scheduled TestsThyroid Stimulating Hormone 03/03/22Lipid Profile 03/03/22Hepatitis C Antibody IgG 03/03/22Complete Metabolic Panel 03/03/22CT Low Dose Lung Cancer Screening (LDCT) 03/03/22 [facility] 02-15-2022 Miscellaneous Notes Patient given results and verbalized understanding of instructions given. Geneva Quevedo Unable to reach patient. Mailbox full/Mailbox not set up/ Number incorrect. Please try again later. Geneva Quevedo ----- Message from Natalia Guo APRN.CNP sent at 02/15/2022 8:08 AM EDT ----- Urine culture did not show any evidence of infection. She may continue to take antibiotic if it has been helpful. Recommend follow up with PCP to ensure hematuria has resolved. Natalia Guo CNP documented in this encounter [facility] 02-13-2022 Instructions Alen Rodriguez APRN.CNP - 02/13/2022 1:05 PM EDT URINARY TRACT INFECTION GENERAL INFORMATION: A urinary tract infection (UTI) is an infection of the bladder or kidneys. A bladder infection, called cystitis, is the more common type. If the infection travels up to the kidneys, it is called pyelonephritis. This can be more serious. UTIs are a common problem in women. Having sexual relations can leave a woman more susceptible to developing a UTI, but it is not sexually transmitted like gonorrhea. Some women have a problem with recurrent UTIs. INSTRUCTIONS: 1. Your doctor prescribed an antibiotic to treat the UTI. Take exactly as directed. Be sure to take all the medication prescribed, even if your symptoms disappear. If you stop treatment early, the infection may not be fully treated and the symptoms could come back again. 2. Get plenty of rest. You may take acetaminophen for fever and aches. 3. Drink 6 to 8 glasses of fluids, especially water, every day. This helps wash out germs from your urinary tract. Cranberry juice or other sources of vitamin C are also good for you. 4. Urinate often, as soon as you feel the urge. Empty your bladder completely. Urinate before and after you have sex. 5. Always wipe from front to back after going to the bathroom. This pushes germs away from your bladder, rather than towards it. 6. Showers are better than baths, and you should wash the genital area daily. Avoid bubble bath or bath oils if you do take a bath. 7. Wear underwear and pantyhose with a cotton crotch. CONTACT YOUR DOCTOR: 1. You have a temperature over 102F (38.8C) after 48 hours on medication. 2. You notice blood in your urine. 3. Your symptoms don't improve in 2 days. 4. You develop nausea, vomiting, diarrhea, or a rash. 5. You develop new or unexplained symptoms. These may be related to the medication you are taking. 6. Your symptoms return after you finish treatment. RETURN TO THE EMERGENCY DEPARTMENT IF: You develop vomiting and can't keep your medication or fluids down. documented in this encounter [facility] 02-13-2022 History of Present illness Narrative Subjective HPI A nontoxic appearing female presents to urgent care with chief complaint of possible UTI. Duration of symptoms 1 day. Associated symptoms dysuria, frequency, and urgency. Patient has history of UTIs in past with similar signs and symptoms. Rates the use of Uristat for symptom management. Good success. Patient states pain is a 4/10. Patient denies any fevers, flank pain, abdominal pain, nausea, vomiting, vaginal discharge. Patient states she does have cyst on her kidneys. Normal kidney function. Past medical history prescription medication use allergies reviewed. .Patient presents with: UTI: pressure, pain, and frequent urination, blood in urine x 1 day No past medical history on file. No past surgical history on file. ALLERGIES Patient has no known allergies. MEDICATIONS escitalopram oxalate (LEXAPRO) 10 mg tablet Take 10 mg by mouth once daily. busPIRone HCl 30 mg tablet Take 30 mg by mouth twice daily. No family history on file. Social History Tobacco Use Smoking status: Current Every Day Smoker Smokeless tobacco: Never Used Substance Use Topics Alcohol use: Not on file Drug use: Not on file BP 164/96 Pulse 96 Temp 36.1 C (96.9 F) Resp 19 Wt 52.2 kg (115 lb) SpO2 97% bp 147/85 Review of Systems Constitutional: Negative for chills, fever and malaise/fatigue. HENT: Negative for congestion, ear discharge, ear pain, sinus pain and sore throat. Eyes: Negative for blurred vision, pain, discharge and redness. Respiratory: Negative for cough, hemoptysis, sputum production, shortness of breath, wheezing and stridor. Cardiovascular: Negative for chest pain. Gastrointestinal: Negative for abdominal pain, diarrhea, nausea and vomiting. Genitourinary: Positive for dysuria, frequency, hematuria and urgency. Negative for flank pain. Musculoskeletal: Negative for myalgias. Skin: Negative for itching and rash. Neurological: Negative for dizziness and headaches. Objective Physical Exam Constitutional: General: She is not in acute distress. Appearance: She is not diaphoretic. HENT: Head: Normocephalic. Mouth/Throat: Mouth: Mucous membranes are moist. Pharynx: Oropharynx is clear. No oropharyngeal exudate or posterior oropharyngeal erythema. Eyes: Conjunctiva/sclera: Conjunctivae normal. Pupils: Pupils are equal, round, and reactive to light. Cardiovascular: Rate and Rhythm: Normal rate and regular rhythm. Heart sounds: Normal heart sounds. Pulmonary: Effort: Pulmonary effort is normal. No tachypnea, accessory muscle usage or respiratory distress. Breath sounds: Normal breath sounds. No stridor. Abdominal: Palpations: Abdomen is soft. Tenderness: There is abdominal tenderness in the suprapubic area. There is no right CVA tenderness or left CVA tenderness. Musculoskeletal: Cervical back: Normal range of motion and neck supple. No rigidity or tenderness. Lymphadenopathy: Cervical: No cervical adenopathy. Skin: General: Skin is warm and dry. Neurological: Mental Status: She is alert and oriented to person, place, and time. ASSESSMENT/PLAN: 1. Painful urination - ICD9: 788.1, ICD10: R30.9 - UA DIP, URINE (POC) - URINE CULTURE Patient did have suprapubic tenderness coupled with dysuria and frequency. History of UTI similar signs symptoms. Urine dip inconclusive due to Uristat. Will culture urine. Patient will be placed on Keflex today. Patient was educated on supportive therapies. Patient will follow up with primary care provider as needed. Patient was instructed to immediately proceed to emergency room for any new, worsening, or symptoms lasting longer than anticipated. The patient's clinical presentation is otherwise unremarkable at this time. Based on exam and clinical finding, the patient is stable for discharge. Plan of care was discussed with patient. Patient verbalizes understanding and agrees to plan of care. This note was generated using Genoom software. It may contain errors in wording, punctuation, or spelling. Alen Rodriguez APRN.HILARIA documented in this encounter [facility] Discharge summary Note Date/Time April 07, 2023 1:44pm [facility] Medical Records Department [address] [place] [id number] Instructions for Home/Discharge Instructions 04/07/23 1343 MR#: [id number] Acct: [id number] Name: JENIFER CASTRO Rep #:[id number] : 1955 68 From: Jazlyn Lennon PCP: Dr. Dennis Field, DO Status:[facility] Discharge Instructions Diet Discharge Diet: No restrictions Activity Discharge Activity: Return to Normal Activity Dressing / Incision Call your doctor if you observe: Fever of 101 or Higher, Inability to urinate and Inability to have a bowel movement Follow Up Care Please Follow Up With: Jazlyn Cai MD When: The office will call the patient to make arrangements Test Results: Test results from this visit will be discussed in further detail at your follow-up appointment, if applicable. Discharge Plan Admission Attending Provider: Jazlyn Cai Primary Care Provider: Dennis Field Discharge Orders/Prescriptions Prescriptions: New oxycodone-acetaminophen [Percocet] 5-325 mg tablet 1 tab PO Q8H PRN (Reason: pain) 3 Days Qty: 10 0RF cephalexin [cephalexin] 500 mg capsule 500 mg PO Q12 3 Days Qty: 6 0RF phenazopyridine [Pyridium] 200 mg tablet 200 mg PO TID PRN PRN (Reason: Bladder Spasms) 7 Days Qty: 30 0RF Continued buspirone 30 mg tablet 30 mg PO BID Patient Comments: take 1 tablet by mouth twice a day escitalopram oxalate 20 mg tablet 20 mg PO DAILY Patient Comments: take 1 tablet by mouth once daily Referrals / Follow Up: Dennis Field DO [Primary Care Provider] - Disposition Disposition (needs filled in before D/C Order can be placed): Home, Self Care 04/07/23 1346<Electronically signed by Jazlyn Cai MD>Jazlyn Cai MD CC: Dr. Dennis Field DO ~ Signed [facility] Work Phone: Discharge summary Author Jazlynolu Cai [facility] April 28, 2023 10:08am Note Date/Time April 28, 2023 9:27am [facility] Medical Records Department [address] [place] [address] Instructions for Home/Discharge Instructions 04/28/23 0927 MR#: [id number] Acct: [id number] Name: JENIFER CASTRO Rep #:[id number] : 1955 68 From: Jazlyn Lennon PCP: Dr. Dennis Field DO Status:[facility] Discharge Instructions Diet Discharge Diet: No restrictions Activity Discharge Activity: Return to Normal Activity Dressing / Incision Call your doctor if you observe: Fever of 101 or Higher, Inability to urinate and Inability to have a bowel movement Follow Up Care Please Follow Up With: Jazlyn Cai MD When: The office will call to make follow-up arrangements. Test Results: Test results from this visit will be discussed in further detail at your follow- up appointment, if applicable. Discharge Plan Admission Attending Provider: Jazlyn Cai Primary Care Provider: Dennis Field Discharge Orders/Prescriptions Prescriptions: Continued buspirone 30 mg tablet 30 mg PO BID Patient Comments: take 1 tablet by mouth twice a day escitalopram oxalate 20 mg tablet 20 mg PO DAILY Patient Comments: take 1 tablet by mouth once daily oxycodone-acetaminophen [Percocet] 5-325 mg tablet 1 tab PO Q8H PRN (Reason: pain) 3 Days Qty: 10 0RF cephalexin 500 mg capsule 500 mg PO Q12 3 Days Qty: 6 0RF phenazopyridine [Pyridium] 200 mg tablet 200 mg PO TID PRN PRN (Reason: Bladder Spasms) 7 Days Qty: 30 0RF Referrals / Follow Up: Dennis Field DO [Primary Care Provider] - Disposition Disposition (needs filled in before D/C Order can be placed): Home, Self Care 04/28/23 1008<Electronically signed by Jazlyn Cai MD>Jazlyn Cai MD CC: Dr. Dennis Field DO ~ Signed [facility] Work Phone: Evaluation + Plan note Future Appointments Appointment Date:04/14/2022 11:00:00 AM Scheduled Provider:DENNIS FIELD DO Location:[facility] Appointment Type:[facility] Follow Up Future Scheduled Tests Laboratory* Thyroid Stimulating Hormone 03/03/22 * Lipid Profile 03/03/22 * Hepatitis C Antibody IgG 03/03/22 * Complete Metabolic Panel 03/03/22 Radiology* CT Low Dose Lung Cancer Screening (LDCT) 03/03/22 [facility] Evaluation + Plan note Future Appointments Appointment Date:04/19/2023 09:30:00 AM Scheduled Provider:DENNIS FIELD DO Location:[facility] Appointment Type:[facility] Future Scheduled Tests Laboratory* Thyroid Stimulating Hormone 03/03/22 * Lipid Profile 03/03/22 * Hepatitis C Antibody IgG 03/03/22 * Complete Metabolic Panel 03/03/22 Radiology* CT Low Dose Lung Cancer Screening (LDCT) 03/03/22 [facility] Evaluation note* Diagnosis Painful urination- Primary Dysuria documented in this encounter [facility] note* Diagnosis Urinary frequency- Primary documented in this encounter [facility] noteNo assessment information availableWMercy Health St. [facility] Work Phone: Evaluation note* Diagnosis Onset Date Resolution Status Abnormal EKG acute Chest pain acute Preoperative clearance acute [facility] Work Phone: Evaluation note* Diagnosis Acute right-sided low back pain without sciatica- Primary documented in this encounter [facility] note* Diagnosis Upper back pain documented in this encounter [facility] note* Diagnosis Urinary frequency- Primary Recurrent UTI (urinary tract infection) Urinary tract infection, site not specified documented in this encounter [facility] note* Diagnosis Urinary frequency- Primary Recurrent UTI (urinary tract infection) Urinary tract infection, site not specified [facility] Narrative No data available for this section [facility] Discharge instructions No data available for this section [facility] Discharge instructions Additional Instructions Implant Used?: YesWMercy [facility] St[facility] Work Phone: Progress note No data available for this section [facility] Reason for referral (narrative)* Diagnostic Procedure Only (Urgent) - Closed Specialty Diagnoses / Procedures Referred By Contac t Referred To Contact XR IMAGING Diagnoses Upper back pain Procedures XR THORACIC GENERAL 3V AP/LAT/SWIMMERS RADEX SPINE THORACIC 3 VIEWS Alen Rodriguez APRN.CNP [address] [place] [address] [place] [address] Referral ID Status Reason Start Date Expiration Date V isits Requested Visits Authorized [id number] Closed Auto-Generate d Referral 11/30/2022 12/30/2023 [address] [facility] for [facility] (narrative)No reason for referral information availableWMercy Health St. [facility] Work Phone: Reason for visit Narrative* Diagnostic Procedure Only (Urgent) - Closed Specialty Diagnoses / Procedures Referred By Contac t Referred To Contact XR IMAGING Diagnoses Upper back pain Procedures XR THORACIC GENERAL 3V AP/LAT/SWIMMERS RADEX SPINE THORACIC 3 VIEWS Alen Rodriguez, CUSTOMER SUPPLY COORDINATOR.CLUB STEWARD [address] [place] [address] [place] [address] Referral ID Status Reason Start Date Expiration Date V isits Requested Visits Authorized [id number] Closed Auto-Generate d Referral 11/30/2022 12/30/2023 [address] [facility] Reason for Referral Specialty Diagnoses / Procedures Referred By Contac t Referred To Contact Diagnoses Acute right-sided low back pain without sciatica Darin Mcfadden, CUSTOMER SUPPLY COORDINATOR.CLUB STEWARD [address] [place] [address] Referral ID Status Reason Start Date Expiration Date Visits Re quested Visits Authorized [id number] Closed 1 1 Specialty Diagnoses / Procedures Referred By Contac t Referred To Contact Urology Diagnoses Urinary frequency Procedures CONSULT TO UROLOGY OFFICE/OUTPATIENT [facility] 60-74 MINUTES Ines Yates, CUSTOMER SUPPLY COORDINATOR.CLUB STEWARD [address] [place] [address] Referral ID Status Reason Start Date Expiration Date Visits Requested Visits Authorized [id number] Authorized PCP Requested Referral 2 05/25/2023 1 1 Summary Purpose Family History Relationship Condition Age at Onset Recorded Date/T jessica mother Coronary artery disease 60 No Family History Records Found Advance Directives No Advanced Directives Records Found Advance Directive Response Recorded Date/ Time Living Will No March 30 1:54pm Power of Home Weatherizing Worker No March 30, 023 1:54pm Advance Directive Response Recorded Date/ Time Name of Medical Power of Home Weatherizing Worker Rashaad April 22, 2023 2:01pm Living Will No April 22, 2 023 2:01pm Power of Home Weatherizing Worker Yes April 22, 2023 2:01pm Chief Complaint and Reason for Visit Chief Complaint UROGRAM GROSS HEMATU PETER Chief Complaint UROGRAM GROSS HEMATU PETER Cysto,Ureteroscopy, possible bilate SURG CLEARANCE / ABN EKG (PAT) PRE OP Reason for Visit Abnormal EKG Chest pain Preoperative clearance Chief Complaint UROGRAM GROSS HEMATU PETER Cysto,Ureteroscopy, possible bilate SURG CLEARANCE / ABN EKG (PAT) PRE OP Cysto, left diagnostic ureteroscopy Reason for Visit Abnormal EKG Chest pain Preoperative clearance Chief Complaint UROGRAM GROSS HEMATU PETER Cysto,Ureteroscopy, possible bilate Cysto,Ureteroscopy, possible bilate SURG CLEARANCE / ABN EKG (PAT) PRE OP Cysto, left diagnostic ureteroscopy Reason for Visit Abnormal EKG Chest pain Preoperative clearance Chief Complaint Admit Date SCREENING December 11, 2024 11: 43am Chief Complaint Admit Date EORDERS April 09, 2025 12 :50pm Additional Source Comments Source Comments (unrecognize d section and content) In the event this informatio n is protected by the Federal Confidentiality of Alcohol and Drug Abuse Patient Records regulations: The Federal rules restrict any use of the information to criminally investigate or prosecute any alcohol or drug abuse patient.[facility] the event this information is protected by the Federal Confidentiality of Alcohol and Drug Abuse Patient Records regulations: The Federal rules restrict any use of the information to criminally investigate or prosecute any alcohol or drug abuse patient.[facility] HospitalIn the event this information is protected by the Federal Confidentiality of Alcohol and Drug Abuse Patient Records regulations: The Federal rules restrict any use of the information to criminally investigate or prosecute any alcohol or drug abuse patient.[facility] HospitalIn the event this information is protected by the Federal Confidentiality of Alcohol and Drug Abuse Patient Records regulations: The Federal rules restrict any use of the information to criminally investigate or prosecute any alcohol or drug abuse patient.[facility] HospitalIn the event this information is protected by the Federal Confidentiality of Alcohol and Drug Abuse Patient Records regulations: The Federal rules restrict any use of the information to criminally investigate or prosecute any alcohol or drug abuse patient.[facility] HospitalIn the event this information is protected by the Federal Confidentiality of Alcohol and Drug Abuse Patient Records regulations: The Federal rules restrict any use of the information to criminally investigate or prosecute any alcohol or drug abuse patient.[facility] HospitalIn the event this information is protected by the Federal Confidentiality of Alcohol and Drug Abuse Patient Records regulations: The Federal rules restrict any use of the information to criminally investigate or prosecute any alcohol or drug abuse patient.[facility] HospitalIn the event this information is protected by the Federal Confidentiality of Alcohol and Drug Abuse Patient Records regulations: The Federal rules restrict any use of the information to criminally investigate or prosecute any alcohol or drug abuse patient.[facility] HospitalIn the event this information is protected by the Federal Confidentiality of Alcohol and Drug Abuse Patient Records regulations: The Federal rules restrict any use of the information to criminally investigate or prosecute any alcohol or drug abuse patient.[facility] HospitalIn the event this information is protected by the Federal Confidentiality of Alcohol and Drug Abuse Patient Records regulations: The Federal rules restrict any use of the information to criminally investigate or prosecute any alcohol or drug abuse patient.[facility] Reason for Visit (unrecogniz ed section and content) Reason Comments UTI pressure, pain, and frequent urination, blood in urine x 1 day Reason Comments Results Reason Comments Urinary Frequency x 2 days Reason Comments Pain, Back RIGHT side radiates down buttock x 2.5 days; currently being treated for UTI Reason Comments Urinary Frequency x 2 weeks, treated 1 with bactrim, 05/01 with cipro Reason Comments Consult Urinary Frequency Urinary Incontinence Specialty Diagnoses / Procedures Referred By Brenda contreras Referred To Contact Urology Diagnoses Urinary frequency Procedures CONSULT TO UROLOGY OFFICE/OUTPATIENT [facility] 60 MINUTES Alen Rodriguez APRN.CLUB STEWARD [address] [place] [address] Referral ID Status Reason Start Date Expiration Date V isits Requested Visits Authorized [id number] Closed PCP Requested Referral 06/19/2024 06/19/2025 1 1 Reason Comments Medical Records Care Teams (unrecognized sec tion and content) 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 Natividad Vance MD Family Provider Active Dr. Dennis Field , DO Primary Care Provider Active Team Status: Active Member Role Status Dates Dr. Dennis Field , Primary Care Provider Active Dr. Jazlyn Cai MD Attending Provider Active Team Status: Inactive Member Role Status Dates Dr. Dennis Field , DO Primary Care Provider Active Dr. Jazlyn Cai MD Attending Provider, Referring Nikita franco Active Team Status: Inactive Member Role Status Dates Dr. Dennis Field , DO Primary Care Provider Active Dr. Jazlyn Cai MD Attending Provider Active Team Status: Inactive Member Role Status Dates Dr. Dennis Field , DO Primary Care Provider, Referri ng Provider Active Francy REYEZ, PA Attending Provider Active Team Status: Active Member Role Status Dates Dr. Dennis Field , DO Primary Care Provider Active Dr. Francisco Krause MD Attending Provider Active Team Status: Active Member Role Status Dates Dr. Dennis Field , DO Primary Care Provider Active Francy REYEZ, PA Attending Provider, Referr ing Provider Active Team Status: Inactive Member Role Status Dates Dr. Dennis Field , DO Primary Care Provider Active Francy Gaston PA, PA Attending Provider, Referr ing Provider Active Team Status: Active Member Role Status Dates Dr. Dennis Field , DO Primary Care Provider Active Dr. 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 [facility] [address] [place] [address] PCP - General Internal Medicine 06/19/24 Team Status: Active Member Role Status Tiffanie Borden MD Primary Care Provider Active Team Status: Inactive Member Role Status Tiffanie Borden MD Primary Care Provider Active St art: December 11, 2024 End: December 11, 2024 Magi Borden MD Attending Provider Active Start : December 11, 2024 End: December 11, 2024 Magi Borden MD Referring Provider Active Start : December 11, 2024 End: December 11, 2024 Team Status: Active Member Role/Relationship Status Tiffanie Borden MD Primary Care Provider Active Team Status: Inactive Member Role/Relationship Status Tiffanie Borden MD Primary Care Provider Active St art: February 12, 2025 Dr. Jazlyn Cai MD Attending Provider Active Start: February 12, 2025 Team Status: Inactive Member Role/Relationship Status Tiffanie Borden MD Primary Care Provider Active St art: April 09, 2025 End: April 09, 2025 Magi Borden MD Attending Provider Active Start : April 09, 2025 End: April 09, 2025 Magi Borden MD Referring Provider Active Start : April 09, 2025 End: April 09, 2025 Care Team (unrecognized sect ion and content) Care Team Personnel Name: DENNIS FIELD DO Position: P4 Physician - Primary Care Med Service: Active Provider Member Role: Primary Care Physician Address: Address: [address] [place] [id number] Care Team Related Persons Name: RASHAAD CASTRO Address: Home [address] [place] [id number] [place] Goals (unrecognized section and content) Goals may be documented in a n alternate section INFORMATION SOURCE (unrecogn ized section and content) DATE CREATED AUTHOR 03/15/2023 [facility] ([place]) DATE CREATED AUTHOR AUTHOR'S ORGANIZ ATION 07/26/2024 [facility] DATE CREATED AUTHOR AUTHOR'S ORGANIZ ATION 04/17/2025 [facility] FOR RECORDS PERTAINING TO PATIENTS WHO ARE OR HAVE BEEN ENROLLED IN A CHEMICAL DEPENDENCY/SUBSTANCEABUSE PROGRAM, SOME INFORMATION MAY BE OMITTED. This clinical summary was aggregated from multiple sources. Caution should be exercised in using it in the provision of clinical care. This summary normalizes information from multiple sources, and as a consequence, information in this document may materially change the coding, format and clinical context of patient data. In addition, data may be omitted in some cases. CLINICAL DECISIONS SHOULD BE BASED ON THE PRIMARY CLINICAL RECORDS. [facility]. provides no warranty or guarantee of the accuracy or completeness of information in this document.
== END | disposition home or self-care (01) ==
LOC: PSN 13:34
PROVIDERS: PCP Family Medicine; Referring Provider Student in an Organized Health Care Education/Training Program; Visit Provider Student in an Organized Health Care Education/Training Program
DX: R20.2 Paresthesia of skin (principal)
CPT/HCPCS: 95886; 95911